=== PATIENT | female | born 1945 | race Caucasian/White ===

== ENCOUNTER 2025-02-11 14:48 | Inpatient (IN) | payer MEDICARE, OTHER, SELFPAY ==
[2025-02-11] VITALS (33 sets, daily range): BP systolic 79–117; BP diastolic 56–89; PULSE 2–68; BMI 32.6
[2025-02-11 11:33] LABS: Hematocrit 33.7 % (37.0-47.0); Hemoglobin 11.9 g/dL (12.0-16.0); Mean Corp Hgb Conc. 35.3 g/dL (33.0-37.0); Mean Corpuscular Volume 83.2 fL (81.0-99.0); Nucleated Red Blood Cells % 0 %; Platelet Count 178 10^3/uL (130-400); Red Cell Dist. Width 15.0 % (11.5-14.5)
--- NOTE | 2025-02-11 11:35 | ED.GENMED ---
History of Present Illness
<Urbano Nelson PA-C - Last Filed: 02/11/25 16:18>
General
Chief Complaint: Breathing Problem
Source: patient
Time Seen by Provider: 02/11/25 11:26
History of Present Illness
History of Present Illness:
79-year-old female with past medical history of hyperlipidemia and GERD presenting to the emergency department for evaluation of left shoulder pain and shortness of breath that started today, for the last week or so patient has been dealing with
what she thought was right-sided lower back pain/sciatica, called her primary care provider after she was getting no relief with anti-inflammatories, was started on prednisone but states this was also not helping. Patient states that last night is
when she started feeling the left-sided chest discomfort/shoulder pain and shortness of breath, contacted EMS to bring her here today due to the worsening symptoms this morning. Patient notes she is not experiencing any pleurisy, hemoptysis, cough,
exertional dyspnea or orthopnea, abdominal pain, nausea or vomiting. Patient did reportedly have a fever for EMS on their arrival but patient is afebrile here and she was not aware of any fevers at home during the week. Patient also notes at time
of my exam she some left lower extremity discomfort and swelling. No recent travel or sick contacts. No recent antibiotics. Social history and family history otherwise noncontributory
Past History
<Urbano Nelson PA-C - Last Filed: 02/11/25 16:18>
Past History
ED Past Medical History: GERD and Hypercholesterolemia
ED Past Surgical History: Tonsilectomy
Social History
Tobacco: Non-smoker
Alcohol: None
Drug: None
Living: with family
Review of Systems
<Urbano Nelson PA-C - Last Filed: 02/11/25 16:18>
Review of Systems
All Other Systems: ROS reviewed and negative except as documented in HPI and ROS
Phy Exam
<Urbano Nelson PA-C - Last Filed: 02/11/25 16:18>
Physical Exam
Physical Exam:
GENERAL: Alert , in no apparent distress
HEAD: Normocephalic atraumatic
EYE: Clear conjunctiva
NECK: Supple, no significant adenopathy.
ENT: o/p clr, mmm.
CARDIAC: Tachycardic rate, irregular rhythm, frequent PACs/ectopy on telemetry, harsh systolic murmur most pronounced at the right second intercostal space and left sternal border
LUNGS: Clear breath sounds bilaterally, no acute respiratory distress, no wheezes/rales/rhonchi, pulse ox 90 to 92% on 6 L but speaking in full sentences in no acute respiratory distress
ABDOMEN: Soft, without focal tenderness, no r/g, no cvat
NEUROLOGICAL: Alert and oriented
SKIN: Warm and dry, skin intact.
MUSCULOSKELETAL: Minimal left lower extremity edema compared to the right with some mild tenderness over the proximal gastrocnemius of the left lower extremity, well perfused. Easily palpable pedal and tibial pulse bilaterally
PSYCH: Normal and appropriate interaction.
Scores
<Urbano Nelson PA-C - Last Filed: 02/11/25 16:18>
Heart Failure Risk
Heart Failure Risk Score: Not Applicable
Heart Score for Chest Pain Patients
STEMI patient?: Not applicable
Withdrawal Assessment of Alcohol
Withdrawal Assessment Completed?: Not applicable
Sepsis
<Urbano Nelson PA-C - Last Filed: 02/11/25 16:18>
Sepsis Screening
Sepsis Assessment: Severe Sepsis
Sepsis Screening: Bilirubin >2mg/dl
Sepsis Screen
Sepsis Screen: Severe Sepsis
Date: 02/11/25
Time: 16:15
<Macario Rodgers DO - Last Filed: 02/11/25 13:08>
Sepsis Screen
Sepsis Screen: Severe Sepsis
Date: 02/11/25
Time: 13:05
Course
<Urbano Nelson PA-C - Last Filed: 02/11/25 16:18>
Orders/Labs/Results
Orders:
Orders
02/11/25 11:19
Electrocardiogram (*1) Urgent
Reason for Study: Tachycardia
Urinalysis Reflex To Culture Urgent
Date Specimen was Collected: 02/11/25
Time Specimen was Collected: 11:20
02/11/25 11:20
EKG- Treatment ONCE
02/11/25 11:26
Complete Blood Count/With Diff Urgent
Comprehensive Metabolic Panel Urgent
Lactic Acid Urgent
NT-proBNP Urgent
Comment: ADD ON
Troponin I Urgent
02/11/25 11:27
Blood Culture Urgent
IVÁN Source: Blood/Venous
Specimen Description:
02/11/25 11:31
CT Chest PE Study Urgent
Comment:
Reason For Exam: tachy, hypoxic, chest pain/back pain
Venous Doppler Lwr Ext Left [US Periph Venous LOWER Ext LT] Urgent
Comment:
Reason For Exam: pain, swelling
02/11/25 11:55
Add On- LAB Urgent
Tests Added?: ProBNP
02/11/25 12:13
Azithromycin [Zithromax] 500 mg PO NOW STA
CefTRIAXone [Rocephin] 2,000 mg IV NOW STA
02/11/25 12:16
0.9% Sodium Chloride 1000 ml [Nss] 1,800 ml IV NOW STA
02/11/25 12:17
0.9% Sodium Chloride 1000 ml [Nss] 1,800 ml IV NOW STA
02/11/25 12:20
Sterile Water [Sterile Water For Injection] 20 ml .ROUTE .STK-MED
02/11/25 12:23
Furosemide [Lasix] 40 mg IV NOW STA
02/11/25 12:55
COVID-19 Antigen Urgent
Source: Nasal Swab
02/11/25 13:06
Bipap [RESP] Urgent
Patient to use own unit?: No
Inspiratory Pressure (cm H2O): 14
Expiratory Pressure (cm H2O): 6
02/11/25 13:25
ABG [Arterial Blood Gas] Urgent
%Oxygen/Room Air: 6L NC
02/11/25 13:31
Troponin I Urgent
02/11/25 13:37
Blood Culture Urgent
IVÁN Source: Blood/Venous
Specimen Description:
02/11/25 14:00
Echo 2D MMode Color/Doppler Urgent
Reason for Study: Hypotension, sepsis, heart murmur
02/11/25 14:22
Admit/Transfer Patient As Directed
Co-Sign Provider:
Level of Care: Inpatient admission
Assign to:: ICU
Physician / Group: Franky
Diagnosis: Hypoxia, Pneumona, Heart Failure
Reason for Hospitalization: BIPAP
Expected length of stay greater than two midnights?: Yes
ELOS- Estimated Length of Stay in days: 3
I certify the patient meets the requirements for IP care: Yes
PRN Pain Medication Management As Directed
May give lesser potent ordered pain med per pt: Yes
preference::
Protocol:: Medication orders for pain may be administered in a
manner that supports deferring to patient preference
when the pt is:
- Requesting an ordered lesser potent pain medication.
Least to most potent pain medications are defined
as: acetaminophen < NSAID < tramadol < opioids
(morphine, oxycodone, hydromorphone).
- Requesting a lesser dose of the same medication IF
ORDERED.
- Requesting a less intrusive route of administration
if both routes are prescribed by the provider (PO <
IV).
02/11/25 14:23
Code Status As Directed
Resuscitation Status: Do not resuscitate
Reached after discussion with pt or family/Healthcare POA: Yes
DNR Bracelet Application ONCE
Abnormal Lab Results
02/11/25 02/11/25 02/11/25
11:26 13:25 13:31
WBC 17.6 H 10^3/uL
(4.8-10.8)
RBC 4.05 L 10^6/uL
(4.20-5.40)
Hgb 11.9 L g/dL
(12.0-16.0)
Hct 33.7 L %
(37.0-47.0)
RDW 15.0 H %
(11.5-14.5)
MPV 11.3 H fL
(7.4-10.4)
Abs Immat Gran (auto) 0.5 H 10^3/uL
(0-0.05)
Absolute Neuts (auto) 15.2 H 10^3/uL
(1.4-6.5)
Absolute Lymphs (auto) 0.8 L 10^3/uL
(1.2-3.4)
Absolute Monos (auto) 1.0 H 10^3/uL
(0.1-0.6)
Immature Gran % 2.9 H %
(0-0.5)
Neutrophils % 86.4 H %
(42.2-75.2)
Lymphocytes % 4.5 L %
(20.5-51.1)
pCO2 29 L mmHg
(32-35)
pO2 60 L mmHg
(83-108)
HCO3 19.2 L mmol/L
(21-28)
ABG O2 Sat (Measured) 92.9 L %
(94-98)
Sodium 129 L mmol/L
(135-145)
Carbon Dioxide 17 L mmol/L
(22-30)
BUN 44 H mg/dl
(7-17)
Creatinine 1.2 H mg/dL
(0.6-1.0)
Glucose 172 H mg/dl
(70-99)
Calcium 7.6 L mg/dl
(8.4-10.2)
Total Bilirubin 3.1 H mg/dl
(0.2-1.3)
AST 53 H U/L
(14-36)
ALT 43 H U/L
(0-35)
Alkaline Phosphatase 189 H U/L
(38-126)
Troponin I 0.733 H* ng/ml 0.608 H* ng/ml
Total Protein 5.6 L g/dl
(6.3-8.2)
Albumin 3.0 L g/dl
(3.5-5.0)
02/11/25 11:26
02/11/25 11:26
Vital Signs
Initial and Last Documented VS:
Initial Vital Signs
Pulse Resp Pulse Ox
134 24 90
02/11/25 11:23 02/11/25 11:23 02/11/25 11:23
Last Documented Vital Signs
Temp Pulse Resp BP Pulse Ox
98.3 F 143 23 109/64 95
02/11/25 11:27 02/11/25 16:00 02/11/25 15:30 02/11/25 16:00 02/11/25 16:00
Sarahilt;Macario Rodgers, DO - Last Filed: 02/11/25 13:08>
Orders/Labs/Results
Orders:
Orders
02/11/25 11:19
Electrocardiogram (*1) Urgent
Reason for Study: Tachycardia
Urinalysis Reflex To Culture Urgent
Date Specimen was Collected: 02/11/25
Time Specimen was Collected: 11:20
02/11/25 11:20
EKG- Treatment ONCE
02/11/25 11:26
Complete Blood Count/With Diff Urgent
Comprehensive Metabolic Panel Urgent
Lactic Acid Urgent
NT-proBNP Urgent
Comment: ADD ON
Troponin I Urgent
02/11/25 11:27
Blood Culture Urgent
IVÁN Source: Blood/Venous
Specimen Description:
02/11/25 11:31
CT Chest PE Study Urgent
Comment:
Reason For Exam: tachy, hypoxic, chest pain/back pain
Venous Doppler Lwr Ext Left [US Periph Venous LOWER Ext LT] Urgent
Comment:
Reason For Exam: pain, swelling
02/11/25 11:55
Add On- LAB Urgent
Tests Added?: ProBNP
02/11/25 12:13
Azithromycin [Zithromax] 500 mg PO NOW STA
CefTRIAXone [Rocephin] 2,000 mg IV NOW STA
02/11/25 12:16
0.9% Sodium Chloride 1000 ml [Nss] 1,800 ml IV NOW STA
02/11/25 12:17
0.9% Sodium Chloride 1000 ml [Nss] 1,800 ml IV NOW STA
02/11/25 12:20
Sterile Water [Sterile Water For Injection] 20 ml .ROUTE .STK-MED
02/11/25 12:23
Furosemide [Lasix] 40 mg IV NOW STA
02/11/25 12:55
COVID-19 Antigen Urgent
Source: Nasal Swab
02/11/25 13:06
Bipap [RESP] Urgent
Patient to use own unit?: No
Inspiratory Pressure (cm H2O): 14
Expiratory Pressure (cm H2O): 6
02/11/25 13:25
ABG [Arterial Blood Gas] Urgent
%Oxygen/Room Air: 6L NC
02/11/25 13:31
Troponin I Urgent
02/11/25 13:37
Blood Culture Urgent
IVÁN Source: Blood/Venous
Specimen Description:
02/11/25 14:00
Echo 2D MMode Color/Doppler Urgent
Reason for Study: Hypotension, sepsis, heart murmur
02/11/25 14:22
Admit/Transfer Patient As Directed
Co-Sign Provider:
Level of Care: Inpatient admission
Assign to:: ICU
Physician / Group: Franky
Diagnosis: Hypoxia, Pneumona, Heart Failure
Reason for Hospitalization: BIPAP
Expected length of stay greater than two midnights?: Yes
ELOS- Estimated Length of Stay in days: 3
I certify the patient meets the requirements for IP care: Yes
PRN Pain Medication Management As Directed
May give lesser potent ordered pain med per pt: Yes
preference::
Protocol:: Medication orders for pain may be administered in a
manner that supports deferring to patient preference
when the pt is:
- Requesting an ordered lesser potent pain medication.
Least to most potent pain medications are defined
as: acetaminophen < NSAID < tramadol < opioids
(morphine, oxycodone, hydromorphone).
- Requesting a lesser dose of the same medication IF
ORDERED.
- Requesting a less intrusive route of administration
if both routes are prescribed by the provider (PO <
IV).
02/11/25 14:23
Code Status As Directed
Resuscitation Status: Do not resuscitate
Reached after discussion with pt or family/Healthcare POA: Yes
DNR Bracelet Application ONCE
Abnormal Lab Results
02/11/25 02/11/25 02/11/25
11:26 13:25 13:31
WBC 17.6 H 10^3/uL
(4.8-10.8)
RBC 4.05 L 10^6/uL
(4.20-5.40)
Hgb 11.9 L g/dL
(12.0-16.0)
Hct 33.7 L %
(37.0-47.0)
RDW 15.0 H %
(11.5-14.5)
MPV 11.3 H fL
(7.4-10.4)
Abs Immat Gran (auto) 0.5 H 10^3/uL
(0-0.05)
Absolute Neuts (auto) 15.2 H 10^3/uL
(1.4-6.5)
Absolute Lymphs (auto) 0.8 L 10^3/uL
(1.2-3.4)
Absolute Monos (auto) 1.0 H 10^3/uL
(0.1-0.6)
Immature Gran % 2.9 H %
(0-0.5)
Neutrophils % 86.4 H %
(42.2-75.2)
Lymphocytes % 4.5 L %
(20.5-51.1)
pCO2 29 L mmHg
(32-35)
pO2 60 L mmHg
(83-108)
HCO3 19.2 L mmol/L
(21-28)
ABG O2 Sat (Measured) 92.9 L %
(94-98)
Sodium 129 L mmol/L
(135-145)
Carbon Dioxide 17 L mmol/L
(22-30)
BUN 44 H mg/dl
(7-17)
Creatinine 1.2 H mg/dL
(0.6-1.0)
Glucose 172 H mg/dl
(70-99)
Calcium 7.6 L mg/dl
(8.4-10.2)
Total Bilirubin 3.1 H mg/dl
(0.2-1.3)
AST 53 H U/L
(14-36)
ALT 43 H U/L
(0-35)
Alkaline Phosphatase 189 H U/L
(38-126)
Troponin I 0.733 H* ng/ml 0.608 H* ng/ml
Total Protein 5.6 L g/dl
(6.3-8.2)
Albumin 3.0 L g/dl
(3.5-5.0)
02/11/25 11:26
02/11/25 11:26
Vital Signs
Initial and Last Documented VS:
Initial Vital Signs
Pulse Resp Pulse Ox
134 24 90
02/11/25 11:23 02/11/25 11:23 02/11/25 11:23
Last Documented Vital Signs
Temp Pulse Resp BP Pulse Ox
98.3 F 143 23 109/64 95
02/11/25 11:27 02/11/25 16:00 02/11/25 15:30 02/11/25 16:00 02/11/25 16:00
<Urbano Nelson PA-C - Last Filed: 02/11/25 16:18>
MDM/Problems Addressed
Differential Diagnosis Includes:
PE
Pneumonia
Aortic stenosis or other valvular dysfunction
Bronchitis
Osteomyelitis/discitis
Endocarditis pericarditis/myocarditis
ACS
COVID/viral syndrome
MDM/Problems Addressed:
79-year-old female presenting the ER for evaluation of increasing shortness of breath, left shoulder pain and back pain, symptoms ongoing for about a week and progressing. On arrival here patient is afebrile however noted to be significantly
tachycardic and hypoxic. Currently on 6 L via nasal cannula. Harsh murmur noted on exam. Patient states that she follows with cardiology at [place] and has a history of a murmur. Given her presenting symptoms stat CTA of the chest ordered.
Patient to be kept on supplemental oxygen. Anticipate admission
<Urbano Nelson PA-C - Last Filed: 02/11/25 16:18>
*Radiology
Radiology exam reviewed: preliminary read by ED provider (Multilobar pneumonia) and radiology read reviewed
*Pulse Oximetry
SaO2: 93
Nasal Cannula flow liters per minute: 5
Patient hypoxic: yes
*EKG
Heart Rate: 109
Rate: tachycardiac
Rhythm: sinus
[place]: normal axis
Ischemia: no ischemia
*[place] Interpretation
Rate: tachycardiac
Heart Rate: 125
Rhythm: sinus and PAC's
*Critical Care Note
comment:
Critical care statement: A total of 32 minutes of critical care time was provided for this patient. This includes management of unstable vital signs, evaluation of the patient at bedside, reviewing the patient's pertinent medical records, discussion
with consultants, review of old EKGs and review of pertinent medical records. This time with separate from time utilized to perform the aforementioned documented procedures
<Macario Rodgers DO - Last Filed: 02/11/25 13:08>
*Critical Care Note
Total Time (30-74mins, 75-104mins- exclusive of procedures): 32
<Urbano Nelson PA-C - Last Filed: 02/11/25 16:18>
Patient Management
Discussion with other providers: Hospitalist and Decision Science Analyst
Escalation/DeEscalation of care consider admission/obs:
Upon returning from CAT scan patient was now noted to be hypotensive, tachycardic and had an increased work of breathing. Her initial troponin was noted to be significantly elevated as well as an elevated BNP. Due to her hypotension decision was
made to still proceed with IV fluid resuscitation with anticipation of needing to diurese afterwards. Will also start patient on BiPAP for comfort in order to help her current respiratory distress. I also notified cardiology to come and consult on
the patient due to concern for worsening valvular dysfunction, patient with probable septic shock with organ dysfunction. Hospitalist team notified, will start the patient now in ICU due to concern for worsening respiratory compromise.
ED Attending Note
<Urbano Nelson PA-C - Last Filed: 02/11/25 16:18>
-
Portions of this chart may have been created with voice recognition software.� Occasional wrong word or��sound alike� substitutions may have occurred due to the inherent limitations of voice recognition software.
<Macario Rodgers DO - Last Filed: 02/11/25 13:08>
ED Attending Note
Patient seen and examined by attending physician: Yes
I performed the substantive portion of visit, reviewed & personally made and approve the management plan that is documented in note by myself or SOFIA.: Yes
ED Attending Note:
Seen with KAREY examined independently 79-year-old female shortness of breath for a few days bilateral pneumonia
Marginal blood pressure elevated cardiac markers suspect this is infectious primarily, will start antibiotics following resuscitation check ABG, consideration for noninvasive or invasive ventilation follow closely
Discharge Plan
Departure
Patient Disposition: Admit
Date of Disposition: 02/11/25
Time of Disposition: 12:55
Presentation/result/management discussed w/ accepting MD/DO: Hospitalist
Discharge Problem:
Pneumonia, Elevated troponin, CHF (congestive heart failure), MELITA (acute kidney injury)
Interventions
Interventions:
*Risk Screen - Suicide Last Done: 02/11/25 11:32
*General Assessment Last Done: 02/11/25 11:32
*Neglect/Abuse Screening Last Done: 02/11/25 11:32
*ED- Fall Risk Assessment Last Done: 02/11/25 11:32
*ED COVID-19 Vaccine History Last Done: 02/11/25 11:32
ED- Cardiac Assessment Last Done: 02/11/25 11:32
ED- Pulmonary Assessment Last Done: 02/11/25 11:32
[2025-02-11 11:56] LABS: ALT (SGPT) 43 U/L (0-35); AST (SGOT) 53 U/L (14-36); Albumin 3.0 g/dl (3.5-5.0); Alkaline Phosphatase 189 U/L (38-126); Blood Urea Nitrogen 44 mg/dl (7-17); Calcium 7.6 mg/dl (8.4-10.2); Carbon Dioxide 17 mmol/L (22-30); Chloride 101 mmol/L (98-107); Estimated Creatinine Clearance 43 ml/min; Glucose 172 mg/dl (70-99); Potassium 3.6 mmol/L (3.5-5.1); Sodium 129 mmol/L (135-145); Total Protein 5.6 g/dl (6.3-8.2); eGFR 45.48
[2025-02-11 12:13] LABS: Troponin I 0.733 ng/ml
[2025-02-11] MEDS: ROCEPHIN 2000 MG IV (12:56)
[2025-02-11] MEDS: NSS 1800 ML IV (12:56)
[2025-02-11] MEDS: ZITHROMAX 500 MG PO (12:56)
[2025-02-11 13:31] LABS: COVID-19 Antigen Negative (Negative)
--- NOTE | 2025-02-11 13:33 | HPS.HSE ---
Addendum entered and electronically signed by Tamiko Wilkins DO 02/11/25 15:37:
The patient is seen and examined. I have discussed the patient at length with Rama, and agree with her history and physical and assessment and plan of care as per below. The patient is typically very active and independent with her ADLs. Over
the past week she has been experiencing sciatica for which she moved to a higher level of care where she lives, and was started on Ultram. Her brother notes that she has been very lethargic this week, this sitting on the couch, not very active, and
has been taking Ultram for sciatica type back pain. Her [id number] also notes that her breathing was becoming heavier on Wednesday. She also had a fever. She comes in today to the emergency department secondary to shortness of breath and hypoxia.
On CAT scan she is found to have multilobar pneumonia. After receiving ultrasound in the emergency department to rule out DVT which was negative, the patient came back and was hypotensive. She was given sepsis dose of IV fluids and her blood
pressure has improved. Her concern today is for sepsis and acute hypoxic respiratory failure secondary to multilobar pneumonia. She also has a significant murmur and cardiology was consulted. Her troponins were elevated. She had a bedside
echocardiogram and that is pending official report at this time.
Vital signs remarkable for blood pressure 110/75, pulse of 120, respiratory rate of 21, temperature 98.3, Oxygen saturation 96% on BiPAP
Lungs positive for rhonchi bilaterally
Cardiovascular positive for systolic ejection murmur
Abdomen is soft nontender normoactive bowel sounds without appreciable tenderness, no peritoneal signs
PCO2 on ABG is 60
Assessment and plan of care
Bilateral Multilobar Pneumonia
Hypoxic respiratory failure
Septic Shock and Multisystem Organ Failure with MELITA and transaminitis
-ICU admit, high risk for respiratory failure
-bedside echo performed in ED and pending report
-cont IV abx, LUE, LAMONTE, cultures
-cont non-invasive ventilation with BIPAP and O2
-Pulm Competitive Intelligence Analyst and Cards consultation appreciated
-IVF, continue to monitor I/O, weights, electrolytes and creatinine
-US abd , serial monitoring of electrolytes and LFTs
Pt confirmed she is DNR, agreeable to medical management and non-invasive ventilation with BIPAP
Greater than 60 minutes of critical care time is spent on the care of the patient.
Original Note:
Family Physician
-
Family Physician: Iris Humphreys
Chief Complaint
-
Shortness of Breath
History of Present Illness
Patient is an 79 y/o female past medical history of hypertension, hyperlipidemia, and GERD who presents with shortness of breath and left shoulder pain. Patient reports for the last week she has been dealing with increased back pain/sciatica. She
was taking anti-inflammatories without improvement and was subsequently started on a Medrol dose Simon by her PCP. Last night she developed left sided chest/shoulder pain and increased shortness of breath. Patient reports feeling very sweaty this
morning. EMS indicated fever upon their arrival to patient's home but patient was afebrile upon arrival to the emergency department. While in the emergency department patient was placed on BiPAP due to hypoxia and respiratory distress. Upon my
evaluation patient continues on BiPAP with improvement in her respiratory status. She continue complain of chest pressure across her anterior chest.
Medical History
Past Medical History
Past Medical History: Reports Other
Additional Past Medical History:
Atrial Tachycardia
Hyperlipidemia
GERD
Past Surgical History: Reports Other
Additional Past Surgical History:
Tonsillectomy
Social History
Tobacco: Former Smoker (Quit over 40 years ago)
Family History
Family History: Not pertinent
Allergies / Home Medications
Allergies reflects when Allergies were last updated in [employer].
Home Medications with original date entered in [employer]
Allergy/Medication List:
Allergies
Allergy/AdvReac Type Severity Reaction Status Date / Time
No Known Allergies Allergy Unverified 02/11/25 11:32
Home Medications
acetaminophen 500 mg tablet 1,000 mg PO TID@0800,1300,1700 02/11/25
atorvastatin 10 mg tablet 10 mg PO QHS 02/11/25
esomeprazole magnesium 40 mg capsule,delayed release 40 mg PO DAILY@0900 02/11/25
methylprednisolone 4 mg tablets in a dose pack See Rx Instructions .Route .COMPLEX 02/11/25
metoprolol tartrate 25 mg tablet 25 mg PO BID@0800,1700 02/11/25
polyethylene glycol 3350 17 gram oral powder packet 17 g PO DAILY 02/11/25
sennosides 8.6 mg tablet (senna) 17.2 mg PO DAILY 02/11/25
tramadol 50 mg tablet 75 mg PO Q6HPRN PRN moderate pain 02/11/25
Review of Systems
-
A 12 point ROS was completed and negative except as noted: Yes
Respiratory: Reports Trouble Breathing; Denies Cough
Cardiac: Reports Chest Pain, Diaphoresis and Palpitations
Abdomen/GI: Denies Abdominal Pain, Nausea or Vomiting
Musculoskeletal: Denies Edema
Physical Exam
Vital Signs
Vital Signs
Temp Pulse Resp BP Pulse Ox
98.3 F 100 20 79/68 89
02/11/25 11:27 02/11/25 13:15 02/11/25 13:15 02/11/25 13:01 02/11/25 13:15
Physical Exam
General: Well Developed, Well Nourished, Obese and Other (Comfortable and Conversant on BiPAP)
HEENT: Anicteric and Moist mucous membranes
Respiratory: Clear; No Rales
Cardiac: S1/S2, Regular Rhythm, Tachycardia (Slightly) and Murmur (Systolic Murmur hear best at left upper sternal border)
GI: Soft and Non Tender
Rectal: Deferred by Provider
Musculoskeletal: No Clubbing, No Cyanosis and No Edema
Skin: Warm and Dry
Neuro: Awake, Alert and Nonfocal/grossly intact
Psych: Calm
Laboratory Results
-
02/11/25 11:26
02/11/25 11:
Laboratory Results
Lactic Acid 1.7 mmol/L (0.7-2.0) 02/11/25 11:
Total Bilirubin 3.1 mg/dl (0.2-1.3) H 02/11/25 11:26
AST 53 U/L (14-36) H 02/11/25 11:
ALT 43 U/L (0-35) H 02/11/25 11:
Alkaline Phosphatase 189 U/L (38-126) H 02/11/25 11:
Troponin I 0.733 ng/ml H* 02/11/25 11:[address]:
Bilateral pneumonia, right greater than left.
Tiny bilateral pleural effusions
No pulmonary embolus.
Peripheral Vascular Ultrasound:
No evidence of DVT of the left lower extremity.
Data Reviewed
-
CT Scan: Report Reviewed by me
Ultrasound: Report Reviewed by me
Lab Data: Labs Reviewed by me
Impression/Plan
-
Bilateral Pneumonia with likely Septic Shock with Multisystem Organ Failure
-Admit to ICU
-Consult Cardiology and Intensivists
-Continue ceftriaxone and azithromycin
-Continue BiPAP
-Trend renal function, liver function tests and troponin
-Low threshold to start pressors for blood pressure support
-Reviewed patient that she is comfort with currently level care but would not want to intubated and does not want CPR
Atrial Tachycardia
-Resume metoprolol with blood pressure stabilizes
Hyperlipidemia
-Continue atorvastatin
GERD
-Continue Protonix
DVT proph: SC Heparin
Code Status: DNR
[2025-02-11 13:38] LABS: B.E. -4.0 mmol/L; HCO3 19.2 mmol/L (21-28); O2 Saturation % 92.9 % (94-98); PCO2 29 mmHg (32-35); PO2 60 mmHg (83-108)
[2025-02-11 13:48] LABS: O2 Therapy 6L NC
--- NOTE | 2025-02-11 14:02 | CON.CAR ---
Consultation
Consultation Request
Date/Time Consultation Requested: 02/11/2025 at 1400
Date/Time Consultation Performed: 02/11/2025 at 1430
Requesting Provider: Urbano Coyle
Performing Provider: Dr. Richardson Peralta
Reason for Consultation: Hypotension, tachycardia, murmur
Medical History
-
Chief Complaint: Change in mental status, hypotension, murmur, sepsis
History of Present Illness:
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 [place] L[place]os at [place]. She is independent, drives, very active, major problem of late has been low back pain and she
recently moved from her apartment to assisted living because of back issues.Details of her history are largely unknown, but today she developed left shoulder discomfort and dyspnea per her report of the emergency department. Over the last week had
been on prednisone and anti-inflammatories for right-sided low back pain and sciatica. Brother is at the bedside states that she had a change in mental status yesterday did not seem to be herself, was fatigued and currently she does not denies
complaints of marked shortness of breath, chest pain etc. She was reportedly febrile, with some change in mental status. On presentation, she is tachycardic, hypotensive, with a mental state that is not at baseline and so is admitted. Per
patient, she has been told she has a heart murmur but that it was not a significant problem.
Past Medical History
Past Medical History: GERD, Hypercholesterolemia and Other (Degenerative disc disease)
Social History
Tobacco: Former Smoker
Alcohol: None
Drug: None
Personal: Single
Living: Assisted Living (Was independent and active, still driving, etc. until the last couple weeks, now in assisted living at [facility])
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
Family History
Family History: Unable to Obtain
Allergies / Home Medications
Allergy/AdvReac Type Severity Reaction Status Date / Time
No Known Allergies Allergy Unverified 02/11/25 11:32
�Medication �Instructions �Recorded �Confirmed �Type
acetaminophen 500 mg tablet 1,000 mg PO TID@0800,1300,1700 02/11/25 02/11/25 History
atorvastatin 10 mg tablet 10 mg PO QHS 02/11/25 02/11/25 History
esomeprazole magnesium 40 mg 40 mg PO DAILY@0900 02/11/25 02/11/25 History
capsule,delayed release
methylprednisolone 4 mg tablets in See Rx Instructions .Route .COMPLEX 02/11/25 02/11/25 History
a dose pack
metoprolol tartrate 25 mg tablet 25 mg PO BID@0800,1700 02/11/25 02/11/25 History
polyethylene glycol 3350 17 gram 17 g PO DAILY 02/11/25 02/11/25 History
oral powder packet
sennosides 8.6 mg tablet (senna) 17.2 mg PO DAILY 02/11/25 02/11/25 History
tramadol 50 mg tablet 75 mg PO Q6HPRN PRN moderate pain 02/11/25 02/11/25 History
Review of Systems
-
Unable to obtain full review of systems at this time due to: Other (Currently probably with toxic metabolic encephalopathy)
History Source: Patient and Family
Physical Exam
Vital Signs
Temp Pulse Resp BP Pulse Ox
36.8 C 100 20 79/68 89
02/11/25 11:27 02/11/25 13:15 02/11/25 13:15 02/11/25 13:01 02/11/25 13:15
Lab Results
02/11/25 11:26
02/11/25 11:26
Troponin I 0.733 ng/ml H* 02/11/25 11:26
Uek-V-Thjxaddrosv Pept Cancelled 02/11/25 11:32
Physical Exam
General: Respiratory Distress, Fever and Other (Jaundiced)
HEENT: Normocephalic
Respiratory: Clear
Cardiac: Murmur (Loud systolic murmur left sternal border to apex- dynamic LVOT murmur? Possible aortic stenosis or mitral regurgitation) and Other (Pulses intact)
GI: Soft and Non Tender
Musculoskeletal: No Edema
Skin: Warm and Dry
Neuro: Nonfocal/Grossly Intact and Other (Awake, slow to respond to questions)
Psych: Other (Probable mild toxic metabolic encephalopathy)
Impression / Plan
-
Impression:
Bilateral pneumonia with presumed septic shock and multisystem organ failure
Non-[place] related myocardial injury related to sepsis, initial troponin 0.733
proBNP 19,000
Hepatitis with hyperbilirubinemia
Probable MELITA
Toxic metabolic encephalopathy
Respiratory failure on BiPAP
Atrial tachycardia
Murmur, concern for dynamic left ventricular outflow tract obstruction, consider mitral regurgitation, aortic stenosis less likely
Plan:
She presents with what is most likely septic shock from bilateral pneumonia, with evidence of hepatic, renal, cardiac and neurologic injury. Impending respiratory failure currently on BiPAP.
Check echo
Treatment of pneumonia per primary team
Supportive care
Trend troponin
Although proBNP is markedly elevated, would not attempt diuresis at this time
Data Reviewed
-
EKG: Tracing Personally Visualized and interpreted (Sinus rhythm/sinus tachycardia with short runs of atrial tachycardia)
CT Scan: Image Personally Visualized and interpreted ( CT with pulmonary embolism protocol-no pulmonary embolism dissection pneumo, right upper lobe right lower lobe pneumonia left upper lobe and left lower lobe pneumonia)
Ultrasound: Report Reviewed by me (No lower extremity DVT)
Labs: Labs Reviewed by me (White count 17.6, hemoglobin 11.9, platelets 178, left shift, 7.43, 60/29, base excess -4, sodium 129, potassium 3.6, CO2 77, BUN/creatinine 44 and 1.2, glucose 172, proBNP is 19,000, troponin is 0.733, AST is 53, ALT is
43, alkaline phosphatase is 189, lactic acid is 1.7, bilirubin is 3.1)
[2025-02-11 14:41] LABS: Troponin I 0.608 ng/ml
--- NOTE | 2025-02-11 15:57 | CON.INTV ---
Consultation
Consultation Request
Date/Time Consultation Requested: 02/11
Date/Time Consultation Performed: 02/11
Reason for Consultation: Critical care
Medical History
-
History of Present Illness:
History primarily obtained from the chart and the patient. 79-year-old female with history of hypertension, hyperlipidemia, who has been dealing with back pain, sciatica. She was being treated with anti-inflammatory therapy and steroids per
primary. She then developed increased shortness of breath, left-sided chest pain, diaphoresis. EMS was contacted. Upon arrival to [facility], afebrile, pulse 100, breathing at 20, blood pressure 79/68, 89%. CT chest was obtained,
negative for pulmonary embolism. There were bilateral infiltrates concerning for pulmonary edema. Doppler study was negative for DVT. Patient was given IV ceftriaxone, azithromycin. Patient developed increased respiratory distress, worsening
hypoxia requiring BiPAP. Patient being admitted to ICU for further management 02/11
At this time, patient appears to be comfortable on BiPAP, not using accessory muscles. She does feel somewhat improved overall. She denies nausea, abdominal pain
Upon arrival to ICU, patient taken off BiPAP. She feels improved. She describes few days of not feeling well. She also did not take her medications, including beta-dov.
She is not very forthcoming with regards to history but is able to answer questions appropriately
.
PMH: Hyperlipidemia, GERD, history of atrial tachycardia, history of tonsillectomy.
Past Medical History
Past Medical History: None (See above)
Past Surgical History: None (See above)
Social History
Tobacco: Former Smoker (Quit )
Alcohol: None
Drug: None
Personal: Single
Living: Assisted Living (Living at assisted living for the past couple weeks)
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
Family History
Family History: Reviewed & Not Pertinent and Other
Allergies / Home Medications
Allergies
Allergy/AdvReac Type Severity Reaction Status Date / Time
No Known Allergies Allergy Unverified 02/11/25 11:32
Home Medications
�Medication �Instructions �Recorded �Confirmed �Last Taken �Type
acetaminophen 500 mg tablet 1,000 mg PO TID@0800,1300,1700 02/11/25 02/11/25 Unknown History
atorvastatin 10 mg tablet 10 mg PO QHS 02/11/25 02/11/25 Unknown History
esomeprazole magnesium 40 mg 40 mg PO DAILY@0900 02/11/25 02/11/25 Unknown History
capsule,delayed release
methylprednisolone 4 mg tablets in See Rx Instructions .Route .COMPLEX 02/11/25 02/11/25 02/11/25 History
a dose pack 12 mg
metoprolol tartrate 25 mg tablet 25 mg PO BID@0800,1700 02/11/25 02/11/25 Unknown History
polyethylene glycol 3350 17 gram 17 g PO DAILY 02/11/25 02/11/25 Unknown History
oral powder packet
sennosides 8.6 mg tablet (senna) 17.2 mg PO DAILY 02/11/25 02/11/25 Unknown History
tramadol 50 mg tablet 75 mg PO Q6HPRN PRN moderate pain 02/11/25 02/11/25 Unknown History
Review of Systems
-
Unable to Obtain full review of systems at this time due to: Acuity
All other systems: Negative unless noted
Vitals / Labs / Diagnostic Testing
Vital Signs
Temp Pulse Resp BP Pulse Ox
98.3 F 102 21 110/75 96
02/11/25 11:27 02/11/25 14:15 02/11/25 14:15 02/11/25 14:00 02/11/25 14:15
Lab Data
02/11/25 11:26
02/11/25 11:26
Laboratory Results
02/11/25
13:25
pH 7.43
pCO2 29 L
pO2 60 L
HCO3 19.2 L
O2 Delivery Level 6l nc
Diagnostic Testing:
Physical Exam
-
HEENT: Normocephalic (BiPAP in place)
Cardiovascular: S1/S2, Regular Rhythm (Tachycardic), Murmur (2/6 systolic murmur), Peripheral Edema (Trace edema) and Calf Tenderness (n)
Respiratory: Wheeze (n), Rales (few), Rhonchi (few) and Non-Labored Respirations (BiPAP in place)
GI: Soft, Non Distended (Obese) and Non Tender
Neurology: Awake, Alert and No Motor Deficits (Moving extremities)
Skin: Other (No rash)
General: Comfortable (Appears comfortable on BiPAP while in the ED)
Assessment
-
79-year-old female with history of hyperlipidemia, murmur followed by cardiology at [place], presents with increased chest pain/shoulder pain, back pain, shortness of breath and mental status changes. Found to be in hypoxic respiratory failure
upon arrival to ED, placed on BiPAP. CT chest ruled out PE, confirmed bilateral patchy infiltrates. Patient given IV antibiotics for presumed pneumonia. We are asked to help from critical care standpoint
Acute hypoxic respiratory failure
Requiring BiPAP in ED
Bilateral infiltrates
Pneumonitis versus heart failure
Elevated proBNP
Leukocytosis
Hyponatremia
Mild transaminitis
Chest pain, shortness of breath x 48 hours
Acute renal insufficiency
Elevated troponin, non-[place] related myocardial injury
Tachycardia
Murmur on exam
Conditions present prior to admission
Hypercholesterolemia
History of atrial tachycardia
Prior known murmur
Distant tobacco history, quit 1980s
Plan/recommendations
At this time, patient is critically ill but stabilized
She was evaluated in the ED when on BiPAP
She was evaluated upon arrival to ICU at which time BiPAP was discontinued
Cardiology correspondence reviewed. Heart failure is not suspected
No indication for Lasix per cardiology
Lactate 1.7
Creatinine 1.2
Moving forward
Echocardiogram is pending
Continue with broad-spectrum antibiotics for pneumonia, remains on ceftriaxone, azithromycin
Follow EKG in the a.m.
Replete lites as indicated
IV fluids continue 60 cc/h, normal saline
Patient also given calcium channel dov, started Cardizem drip
Of note, patient has not been taking her beta-dov, unclear timeframe. Patient not forthcoming as to why she was not taking her medication
Updated brother at bedside
Brother states patient is relatively independent, active
Reviewed with critical care nursing, respiratory care
TCCT 35 min
[2025-02-11 18:20] LABS: INR 1.16; PT 15.1 Sec (11.4-14.6)
[2025-02-11 18:21] LABS: APTT 33.3 Sec (23.4-35.0)
[2025-02-11] MEDS: CARDIZEM 10 MG IV (19:10)
[2025-02-11] MEDS: CARDIZEM 125 IV (19:12)
[2025-02-11] MEDS: HEPARIN 5000 UNITS SC (19:15)
[2025-02-11] MEDS: NSS 1000 IV (19:16)
[2025-02-11] MEDS: MORPHINE SULFATE 1 MG IV (19:28)
--- NOTE | 2025-02-11 19:44 | PTCARENOTE ---
Addendum entered by Ovidio Peralta RN 02/11/25 22:16:
Decreasing systolic goals --> Phenyl-ephrine started.
Addendum entered by Ovidio Peralta RN 02/11/25 21:22:
ICU SOFIA bedside to evaluate chest pain unrelieved by morphine dose, tachypnea. STAT ABG/H&H/BMP ordered. RT notified decision to place patient back on PAP therapy.
Recent Troponin downtrended.
Now maxed on Cardezim rate still in 120-130s.
Addendum entered by Ovidio Peralta RN 02/11/25 20:41:
Cardiology implementation analyst updated via TT. Orders for EKG and troponin --> EKG sent to Cards via TT.
Original Note:
Assumed care of pt. approx 1900.
Tachypnea, increased work of breathing noted, w. sternal chest pain. ICU SOFIA notified orders for morphine.
Diltiazem bolus given, and gtt started.
Bp remains above systolic parameters. Salvatore not initiated.
[2025-02-11 21:18] LABS: Troponin I 0.553 ng/ml
[2025-02-11 21:24] LABS: B.E. -4.3 mmol/L; HCO3 17.8 mmol/L (21-28); O2 Saturation % 95.2 % (94-98); PCO2 25 mmHg (32-35); PO2 68 mmHg (83-108)
[2025-02-11 21:28] LABS: Hematocrit 31.3 % (37.0-47.0); Hemoglobin 11.2 g/dL (12.0-16.0)
[2025-02-11 21:40] LABS: Blood Urea Nitrogen 49 mg/dl (7-17); Calcium 7.8 mg/dl (8.4-10.2); Carbon Dioxide 18 mmol/L (22-30); Chloride 101 mmol/L (98-107); Estimated Creatinine Clearance 43 ml/min; Glucose 160 mg/dl (70-99); Potassium 3.9 mmol/L (3.5-5.1); Sodium 129 mmol/L (135-145); eGFR 45.48
[2025-02-11] MEDS: NEO-SYNEPHRINE 250 IV (22:03)
[2025-02-11] MEDS: LIPITOR 10 MG PO (22:14)
[2025-02-11] MEDS: SODIUM BICARBONATE 50 MEQ IV (22:14)
--- NOTE | 2025-02-11 23:42 | PTCARENOTE ---
Phenyl-ephrine titrated off.
Remains on BiPap --> tolerating well.
Cardizem remains max dose unable to titrate down as HR remains elevated in 100s.
[2025-02-12] VITALS (59 sets, daily range): BP systolic 78–126; BP diastolic 56–105; PULSE 2–92; BMI 32.7
[2025-02-12] MEDS: HEPARIN 5000 UNITS SC ×4 (00:24→22:59)
--- NOTE | 2025-02-12 02:37 | PTCARENOTE ---
Uptitrating Salvatore decreasing SBP goals.
Cardizem downtitrated --> rate more controlled 90-100.
Remains on BiPap, decreased urine OP ICU SOFIA aware.
No further change in assessment.
[2025-02-12 03:33] LABS: Hematocrit 29.0 % (37.0-47.0); Hemoglobin 10.3 g/dL (12.0-16.0); Mean Corp Hgb Conc. 35.5 g/dL (33.0-37.0); Mean Corpuscular Volume 82.2 fL (81.0-99.0); Platelet Count 207 10^3/uL (130-400); Red Cell Dist. Width 14.9 % (11.5-14.5)
[2025-02-12 04:00] LABS: ALT (SGPT) 34 U/L (0-35); AST (SGOT) 33 U/L (14-36); Albumin 2.7 g/dl (3.5-5.0); Alkaline Phosphatase 151 U/L (38-126); Blood Urea Nitrogen 53 mg/dl (7-17); Calcium 7.7 mg/dl (8.4-10.2); Carbon Dioxide 22 mmol/L (22-30); Chloride 103 mmol/L (98-107); Estimated Creatinine Clearance 47 ml/min; Glucose 148 mg/dl (70-99); HDL Cholesterol 17 mg/dl; LDL Cholesterol, Calculated 25 mg/dl; Magnesium 2.0 mg/dl (1.6-2.3); Potassium 3.9 mmol/L (3.5-5.1); Sodium 132 mmol/L (135-145); Total Protein 5.1 g/dl (6.3-8.2); Very Low Density Lipoprotein 46 mg/dl (0-30); eGFR 50.48
[2025-02-12 04:12] LABS: Troponin I 0.667 ng/ml
[2025-02-12] MEDS: CARDIZEM 125 IV (06:10)
[2025-02-12] MEDS: PROTONIX 40 MG PO (07:34)
[2025-02-12] MEDS: TYLENOL 650 MG PO (08:10)
--- NOTE | 2025-02-12 08:22 | W.PN.CARDCBS ---
Today's Communication / Plan
-
Try metoprolol in place of IV diltiazem
Wean Salvatore-Synephrine as possible
To date no atrial fibrillation seen, systemic anticoagulation not currently indicated.
Impression / Plan
-
Impression:
Bilateral pneumonia with clinical sepsis
Non-[place] related myocardial injury related to sepsis, initial troponin 0.733
proBNP 19,000
Hepatitis with hyperbilirubinemia
Probable MELITA
Toxic metabolic encephalopathy
Respiratory failure on BiPAP
Atrial tachycardia
Severe mitral regurgitation
Moderate aortic regurgitation
Pericarditis
Atrial tachycardia, no atrial fibrillation seen today
Echo 02/11/2025: Mild LVH, hyperdynamic function, EF 70-75% or greater, dynamic LVOT gradient suggested but not demonstrated inclusively, MAC, severe MR, dilated left atrium, aortic sclerosis with moderate aortic regurgitation, dilated and
hypokinetic RV, pulmonary artery systolic pressure 52 mmHg with moderate MR and dilated right atrium
Plan:
She presents with what is most likely septic shock from bilateral pneumonia, with evidence of hepatic, renal, cardiac and neurologic injury. Impending respiratory failure currently on BiPAP.
She is better today. Atrial tachycardia is controlled on IV diltiazem. Will transition to metoprolol which is what she was on as an outpatient. She is currently on phenylephrine, hopefully this can be weaned with metoprolol on board.
EKG and symptoms are highly suggestive of pericarditis, will add colchicine at low-dose.
Consider follow-up echo during his hospital stay, imaging was limited at the time of her initial study due to to the acuity of her illness.
Continue to trend troponin, consider ischemic evaluation, could be performed as outpatient.
In general, multisystem organ failure seems to be improving, treatment of pneumonia etc. per primary team and critical care.
Would not anticoagulate based on current available data-no A-fib seen
Volume status currently looks reasonable but proBNP was very elevated. Will continue to observe, no diuretic at present.
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
Subjective
Date of Service: February 12, 2025:
79-year-old woman with known heart murmur, degenerative disc disease, GERD, hypercholesterolemia admitted with hypotension, hypoxemia fever and change in mental status, runs of atrial tachycardia developed shortly after hospital stay consistent with
MAT. CT scan negative for pulmonary embolus, troponin elevated with presumed MELITA, hepatitis, jaundice.
Current meds: diltiazem IV 5 mg an hour, Salvatore-Synephrine at 80 atorvastatin 10 mg a day, pantoprazole 40 mg daily, ceftriaxone, subcu heparin, azithromycin
Pulse 94, 105/67, respirate 16, afebrile, saturations 94%, weight is 94.6 kg, roughly unchanged, conversant, complains of pain lying supine, worse with inspiration tachycardic, MR murmur, coarse breath sounds, few crackles in bases, neck veins not
markedly elevated, not much edema
Chest x-ray today rotated, cardiomegaly, possible left basilar infiltrate
ECG sinus rhythm, diffuse ST segment elevation with element of CO segment depression inferiorly and CO elevation in aVR
White count 25.6, hemoglobin 10.3, platelets 207, left shift, ABG 7.46, pCO2 25, PO268, bicarb 18
Sodium 132, potassium 3.9, CO2 22, BUN/creatinine are 53 and 1.1, Glucose 148, lactic acid 1.7, proBNP 19,000 yesterday, troponin this morning 0.667, COVID-negative
Atrial tachycardia better controlled, heart rate in 90s
Objective
Labs:
02/12/25 03:21
02/12/25 03:21
Labs
Hgb 10.3 g/dL (12.0-16.0) L 02/12/25 03:21
Hct 29.0 % (37.0-47.0) L 02/12/25 03:21
Plt Count 207 10^3/uL (130-400) 02/12/25 03:21
PT 15.1 Sec (11.4-14.6) H 02/11/25 18:03
INR 1.16 02/11/25 18:03
APTT 33.3 Sec (23.4-35.0) 02/11/25 18:03
Sodium 132 mmol/L (135-145) L 02/12/25 03:21
Potassium 3.9 mmol/L (3.5-5.1) 02/12/25 03:21
BUN 53 mg/dl (7-17) H 02/12/25 03:21
Creatinine 1.1 mg/dL (0.6-1.0) H 02/12/25 03:21
Glucose 148 mg/dl (70-99) H 02/12/25 03:21
Troponins
02/11/25 02/11/25 02/11/25
11:26 13:31 20:38
Troponin I 0.733 H* 0.608 H* 0.553 H*
02/12/25
03:21
Troponin I 0.667 H*
Vital Signs and I&O:
Vital Signs
Temp Pulse Resp BP Pulse Ox
36.6 C 94 16 105/67 94
02/12/25 03:28 02/12/25 06:15 02/12/25 06:15 02/12/25 06:00 02/12/25 06:15
Vital Signs
Temp Pulse Resp BP Pulse Ox
36.6 C 94 16 105/67 94
02/12/25 03:28 02/12/25 06:15 02/12/25 06:15 02/12/25 06:00 02/12/25 06:15
Intake & Output
02/10/25 02/11/25 02/12/25 02/13/25
07:59 07:59 07:59 07:59
Intake Total 1039 / 1039
Output Total 230 / 230
Balance 809 / 809
Physical Exam
Physical Exam
See above
[2025-02-12 08:53] LABS: Glycohemoglobin (HgbA1c) 6.3 % (4.0-5.6)
--- NOTE | 2025-02-12 09:14 | PTCARENOTE ---
Received pt awake and alert.Speech clear and appropriate.+ THOMAS.Assists with repositioning.c/o headache,received Tylenol for pain.SR-ST noted.Phenylephrine,Cardizem and IVF infusing via right midline.Decreased breath sounds with crackles bibasilar.Pt
requested to remove BiPAP.Place on O2 6l NC.POX 89-90%.Encouraged to cough and deep breath.RT changed pt to 10l mid flow O2.POX 93%+ WOLF and orthopnea noted.Eating breakfast now.No BM.Requested and received Purewick for incontinence and urgency.Skin
intact.Plan of care discussed.
--- NOTE | 2025-02-12 09:27 | W.PN.HOSP.TC ---
Today's Communication/Plan
-
IV antibiotics
Follow cultures.
Attempt to wean off oxygen
Attempt to wean off vasopressor and IV fluids.
Total Critical Care Time_55____ minutes. I was immediately available to the patient and staff. I personally examined, reviewed labs, diagnostic images/reports, interpretations, treatment plans, discussed patient care with other providers and
family or caregivers (if patient is unable to make decisions), entered orders as appropriate and documented the medical record.
Assessment / Plan
Assessment / Plan
Impression
Acute hypoxic respiratory failure
Bilateral pneumonia.
Sepsis
Septic shock requiring vasopressors.
Gram-positive bacteremia
Acute kidney injury
Hypovolemic hyponatremia
Metabolic acidosis
Hyperbilirubinemia
Toxic metabolic encephalopathy secondary to acute illness
Non-[place] myocardial injury in the settings of hypotension and atrial tachycardia
Atrial tachycardia
Elevated pro CHF BNP
Severe MR on echo 02/11
Pulmonary hypertension PAP 52 mmHg
Other conditions:
Essential hypertension
Dyslipidemia.
Known cardiac murmur.
Chronic back pain.
Distant tobacco history quit in
Plan:
Acute hypoxic respiratory failure
Bilateral right greater than left pneumonia
Sepsis suspect pulmonary source
Septic shock requiring vasopressors
Preliminary blood culture with gram-positive cocci in chains 08/03
Respiratory status improved. Currently weaned off BiPAP to nasal cannula oxygen at 10 L
Continue broad-spectrum antibiotics covering community-acquired pathogens: Ceftriaxone/Zithromax
Follow-up final blood cultures
Consider repeat blood cultures.
Consider ID consultation
Attempt to wean off vasopressor
Remains on low rate normal saline
Toxic metabolic encephalopathy.
Neurologic exam with no focal findings
Mental status improves with improved oxygenation and hemodynamics.
Cardiovascular:
Noted elevated cardiac markers including non-[place] troponin elevation elevated pro CHF BNP at 1900.
Echocardiogram 02/11 with hyperdynamic LVEF at 70-75% with no regional wall motion abnormalities. Noted for moderate MR with a large left atrium, dilated and hypokinetic RV with pulmonary hypertension PA pressure 52 mmHg and moderate TR.
CT scan negative for pulmonary embolism.
Lower extremity Doppler negative for DVT
Questionable relevance of severe MR and possibly streptococcal bacteremia
Atrial tachycardia.
Requiring IV Cardizem.
Rate better controlled with improved oxygenation.
Consider transition to oral possibly metoprolol versus Cardizem once hypotension improved.
Acute kidney injury.
Hypovolemic hyponatremia.
Metabolic acidosis.
Improved with IV fluids and vasopressors.
Nonoliguric.
Hyperbilirubinemia with normal transaminases
Follow trend
Consider imaging if uptrending
Essential hypertension
Dyslipidemia.
Chronic lower back pain.
On tramadol and steroid taper as outpatient
If gram-positive bacteremia remains relevant with persistent back pain, consider imaging
Anticipated Discharge: > 48 hours
Subjective/Interval History
-
Date of Service: February 12, 2025
Objective Data
-
Labs:
Laboratory Results
02/11/25 02/12/25
21:14 03:21
WBC 25.6 H
Hgb 11.2 L 10.3 L
Hct 31.3 L 29.0 L
Plt Count 207
Sodium 129 L 132 L
Potassium 3.9 3.9
Chloride 101 103
Carbon Dioxide 18 L 22
BUN 49 H 53 H
Creatinine 1.2 H 1.1 H
Glucose 160 H 148 H
Calcium 7.8 L 7.7 L
Total Bilirubin 1.5 H D
AST 33
ALT 34
Alkaline Phosphatase 151 H
Vital Signs:
Vital Signs
Temp Pulse Resp BP Pulse Ox
97.5 F 92 16 98/65 93
02/12/25 09:23 02/12/25 09:00 02/12/25 09:00 02/12/25 09:00 02/12/25 09:00
I&O
02/11/25 02/12/25 02/13/25
06:59 06:59 06:59
Intake Total 1039 / 1134 273 / 273
Output Total 230 / 230
Balance 809 / 904 273 / 273
Physical Exam
-
General: Well Developed and No Apparent Distress
HEENT: Normocephalic, Atraumatic and Moist Mucous Membranes
Respiratory: Clear to Auscultation
Cardiac: Regular Rhythm and S1/S2; Negative Murmur, Rub or Gallop
GI: Soft, Nontender, Nondistended and Normal Bowel Sounds; Negative Organomegaly
Rectal: Deferred by Provider
Musculoskeletal: No Clubbing, No Cyanosis and No Edema
Skin: Negative Rash
Neuro: Nonfocal/Grossly Intact
[2025-02-12] MEDS: NEO-SYNEPHRINE 250 IV ×2 (10:49→21:33)
[2025-02-12] MEDS: NSS IV (10:49)
--- NOTE | 2025-02-12 10:53 | CM ---
Initial assessment completed with patient with brother in room. Patient lives alone at [facility] in a 1st floor apartment with no steps to enter. [employer] patient was independent in ADL's and ambulation, drove. No DME or in-home services. Does have a
HC-POA. PCP is Dr. Iris Humphreys and Pharmacy is [facility]. Discharge POC: Anticipate home with no needs. Will follow medical progression.
[2025-02-12] MEDS: ROCEPHIN 1000 MG IV ×2 (11:39→12:33)
[2025-02-12] MEDS: COLCHICINE 0.3 MG PO ×2 (11:39→20:51)
[2025-02-12] MEDS: STERILE WATER FOR INJECTION 10 ML IV ×2 (11:40→12:34)
[2025-02-12] MEDS: LOPRESSOR 25 MG PO (11:40)
[2025-02-12] MEDS: SOLU-MEDROL PF 40 MG IV (12:32)
[2025-02-12] MEDS: ZITHROMAX INFUSION 250 IV (12:33)
[2025-02-12] MEDS: NOVOLOG FLEXPEN-LOW RESISTANCE SC ×2 (12:46→16:47)
[2025-02-12 12:47] LABS: Glucose - Point of Care 124 mg/dl (70-99)
--- NOTE | 2025-02-12 12:52 | PTCARENOTE ---
Pt assessed.no change in assessment noted.Pt assisted oob to chair with 1 person minimal assist.Gait was steady.
--- NOTE | 2025-02-12 13:42 | PTCARENOTE ---
BM x 2.Pt became tachypneic,SOB with pursed lip breathing.Upper airway wheezing noted.Dr Og made aware.Brian ordered.
[2025-02-12] MEDS: DUONEB 3 ML INH ×2 (13:46→20:21)
--- NOTE | 2025-02-12 14:46 | W.PN.INTV ---
Today's Communication / Plan
Recommendations
- Start IV Solu-Medrol 40 mg daily
- Scheduled DuoNeb 4 times daily and as needed albuterol
- Incentive spirometry, flutter valve
- Continue nightly BiPAP and as needed, alternating with mid flow during daytime
- Follow-up chest x-ray and ABG in a.m.
Assessment
-
79-year-old female with history of hyperlipidemia, murmur followed by cardiology at [facility], presents with increased chest pain/shoulder pain, back pain, shortness of breath and mental status changes. Found to be in hypoxic respiratory failure
upon arrival to ED, placed on BiPAP. CT chest ruled out PE, confirmed bilateral patchy infiltrates. Patient given IV antibiotics for presumed pneumonia. We are asked to help from critical care standpoint
Conditions present prior to admission
Hypercholesterolemia
History of atrial tachycardia
Prior known murmur
Distant tobacco history, quit
02/12 overview: Patient currently on mid flow at 10 L, saturating 93-94%, she required BiPAP last night.
Assessment and plan:
#1. Acute hypoxic respiratory failure with bilateral pneumonia (R>L) with septic shock
- Streptococcus bacteremia noted on blood cultures
- Patient currently on mid flow at 10 L supplemental oxygen, required BiPAP overnight due to respiratory distress
- Blood gas was 7/13, 7.46, 25, 68, consistent with wide A-a gap.
- Continue IV ceftriaxone and azithromycin, follow-up on final cultures
- In view of severity of pneumonia and respiratory failure, add IV Solu-Medrol 40 mg daily for 5 days
- Episodic wheezing noted, start DuoNebs 4 times daily scheduled and additional albuterol on an as-needed basis
- BiPAP nightly and as needed
- Lactate reassuring at 1.7
- Required pressors briefly
#2. Pulmonary Hypertension
- Echo suggestive of elevated pulmonary artery systolic pressure of 52 with dilated and hypokinetic RV with moderate TR
- Continue supplemental O2 to keep saturations above 90%
- Unclear etiology of pulmonary hypertension
- Will need pulmonary function testing, sleep study and possibly VQ scan, can pursue these as outpatient
- RV dilation likely driving proBNP level up, will benefit from right heart catheterization eventually
#3. Atrial tachycardia with APCs
- Partly driven by underlying sepsis with bacteremia
- Metoprolol as tolerated, monitor electrolytes closely
#4. Elevated troponin
- [place] to be related to pneumonia with septic shock and respiratory failure
- Cardiology service on case
DVT prophylaxis subcu heparin, GI prophylaxis p.o. pantoprazole.
Critical Care time 60 mins -- The patient is admitted for acute critical illness for the treatment of vital organ failure and/or prevention of further life-threatening conditions. Total care includes time spent in review of history, physical exam,
medications, hemodynamic/ventilator parameters, laboratory data, imaging and discussion with house staff, pharmacy, respiratory therapy, architecture faculty member, and nursing.
Data
CT Chest 01/2025: Bilateral pneumonia, right greater than left.
Tiny bilateral pleural effusions
No pulmonary embolus. No aortic dissection.
Large hiatal hernia.
ECHO 01/2025: 1. Mild concentric left ventricular hypertrophy with hyperdynamic LV systolic
function, EF 70-75% or greater. Dynamic left ventricular outflow tract
gradient not excluded
2. Thickened mitral leaflets, mitral annular calcification, severe mitral
regurgitation and dilated left atrium
3. Aortic sclerosis with moderate aortic regurgitation
4. Dilated and hypokinetic RV, pulmonary artery systolic pressure 52 mmHg,
moderate TR and dilated right atrium
5. The ascending aorta is borderline dilated
Subjective Dataa
Subjective Data
Date of Service:
Date of Service: February 12, 2025
Subjective:
Patient comfortably sitting in bed, in no acute distress
Review of Systems
Genitourinary: Other (Overall feels better, all 14 systems reviewed and negative except as stated above in the history of present illness.)
Objective Data
Data Reviewed
Vital Signs / I&O / Oxygen:
Vital Signs
Temp Pulse Resp BP Pulse Ox
97.5 F 93 24 107/69 94
02/12/25 11:07 02/12/25 13:44 02/12/25 13:44 02/12/25 12:30 02/12/25 13:44
Intake and Output
02/11/25 02/12/25 02/13/25
06:59 06:59 06:59
Intake Total 1039 / 1134 878 / 878
Output Total 230 / 230
Balance 809 / 904 878 / 878
SaO2 94
Nasal Cannula flow liters per 10
minute
Physical Exam
General: Comfortable
HEENT: Normocephalic
Cardiovascular: S1-S2
Respiratory: Rhonchi (lower lobes posteriorly )
GI: Soft and Non Distended
Neurology: Awake and Alert
Skin: Warm
Labs/Micro/Reports
Lab Data
02/12/25 03:21
02/12/25 03:21
Laboratory Results
02/11/25 02/11/25 02/11/25
18:03 20:48 21:14
PT 15.1 H
INR 1.16
APTT 33.3
pH Cancelled 7.46 H
pCO2 Cancelled 25 L
pO2 Cancelled 68 L
HCO3 Cancelled 17.8 L
O2 Delivery Level Cancelled
Microbiology
02/11/25 11:27 Blood/Venous Blood Culture - Preliminary
Streptococcus agalactiae
02/11/25 11:27 Blood/Venous Gram Stain - Final
--- NOTE | 2025-02-12 14:58 | PTCARENOTE ---
1439-POX 85%.BiPAP applied. POX 94%
[2025-02-12] MEDS: DUONEB INH (15:26)
--- NOTE | 2025-02-12 16:37 | PTCARENOTE ---
Pt assessed.No change in assessment noted.Incontinent of bowel and bladder.
--- NOTE | 2025-02-12 16:37 | CM ---
IV/Solu-Medrol, IV/AB, IV/Vasopressors, wean o2 as tolerated. Discharge POC: Await therapy evaluation and recommendation. Was at [facility] for STR prior to admission.
--- NOTE | 2025-02-12 16:43 | CM ---
IV/Solu-Medrol, IV/AB, IV/Vasopressors, wean o2 as tolerated. Discharge POC: Await therapy evaluation and recommendation.
[2025-02-12 16:58] LABS: Glucose - Point of Care 132 mg/dl (70-99)
[2025-02-12] MEDS: LOPRESSOR PO (18:04)
--- NOTE | 2025-02-12 19:00 | PTCARENOTE ---
prev shift VS verified in flowsheet, can only verify accuracy of VS starting at this time for shift.
[2025-02-12] MEDS: MORPHINE SULFATE 1 MG IV (20:16)
--- NOTE | 2025-02-12 20:20 | PTCARENOTE ---
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 POC discussed w/pt. +inc mod amt urine/BM, timmy care, turned, skin care, repositioned.
CHG cloths. care ongoing.
[2025-02-12] MEDS: LIPITOR 10 MG PO (20:52)
[2025-02-12 21:27] LABS: Glucose - Point of Care 158 mg/dl (70-99)
--- NOTE | 2025-02-12 22:12 | PTCARENOTE ---
pt w/new AFIB, HR fluctuating up to 140s, no complaints from pt, SBP 90s on Salvatore gtt as documented, BDoughertyNP aware- EKG done, BMP/Mg to lab. 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
[2025-02-12 22:34] LABS: Blood Urea Nitrogen 47 mg/dl (7-17); Calcium 7.7 mg/dl (8.4-10.2); Carbon Dioxide 19 mmol/L (22-30); Chloride 106 mmol/L (98-107); Estimated Creatinine Clearance 65 ml/min; Glucose 168 mg/dl (70-99); Magnesium 2.3 mg/dl (1.6-2.3); Potassium 3.9 mmol/L (3.5-5.1); Sodium 135 mmol/L (135-145); eGFR > 60.00
[2025-02-12] MEDS: CORDARONE 518 MG IV (22:59)
[2025-02-12] MEDS: CORDARONE 103 MG IV (22:59)
--- NOTE | 2025-02-12 23:06 | PTCARENOTE ---
amio bolus/gtt started per orders.
[2025-02-13] VITALS (43 sets, daily range): BP systolic 89–121; BP diastolic 57–91; PULSE 2–102; BMI 32.6
[2025-02-13 04:13] LABS: Hematocrit 29.4 % (37.0-47.0); Hemoglobin 10.5 g/dL (12.0-16.0); Mean Corp Hgb Conc. 35.7 g/dL (33.0-37.0); Mean Corpuscular Volume 82.6 fL (81.0-99.0); Nucleated Red Blood Cells % 0.1 %; Platelet Count 266 10^3/uL (130-400); Red Cell Dist. Width 14.7 % (11.5-14.5)
[2025-02-13 04:30] LABS: B.E. -2.6 mmol/L; HCO3 19.4 mmol/L (21-28); O2 Saturation % 94.4 % (94-98); PCO2 26 mmHg (32-35); PO2 66 mmHg (83-108)
--- NOTE | 2025-02-13 04:30 | PTCARENOTE ---
pt removed bipap on own, requesting a break from the mask, RT to bedside for am abg. pt switched to 15L MFNC. with in mins of being off bipap pt was SOB & sat down to mid to high 80s. 100% NRB added and pt reports feeling better, Sat low to mid 90s.
turned, skin care, repositioned. call cooper with pt.
[2025-02-13 04:42] LABS: ALT (SGPT) 41 U/L (0-35); AST (SGOT) 38 U/L (14-36); Albumin 2.7 g/dl (3.5-5.0); Alkaline Phosphatase 175 U/L (38-126); Blood Urea Nitrogen 43 mg/dl (7-17); Calcium 7.8 mg/dl (8.4-10.2); Carbon Dioxide 20 mmol/L (22-30); Chloride 105 mmol/L (98-107); Estimated Creatinine Clearance 74 ml/min; Glucose 175 mg/dl (70-99); Magnesium 2.4 mg/dl (1.6-2.3); Potassium 4.0 mmol/L (3.5-5.1); Sodium 134 mmol/L (135-145); Total Protein 5.2 g/dl (6.3-8.2); eGFR > 60.00
[2025-02-13] MEDS: TYLENOL 650 MG PO ×2 (06:28→20:39)
[2025-02-13] MEDS: NEO-SYNEPHRINE 250 IV (07:30)
--- NOTE | 2025-02-13 07:30 | PTCARENOTE ---
Received patient A&Ox3, on MFNC 15L and NRB 15L, NSR w/ intermittent Afib, on phenylephrine @60mcg/min and Amiodarone @0.5mg/min, NPO currently for pending ABD , Purewick in place.
[2025-02-13] MEDS: DUONEB 3 ML INH ×4 (07:52→20:51)
[2025-02-13 07:58] LABS: Glucose - Point of Care 154 mg/dl (70-99)
[2025-02-13] MEDS: NOVOLOG FLEXPEN-LOW RESISTANCE SC (08:20)
[2025-02-13] MEDS: SOLU-MEDROL PF 40 MG IV (08:44)
[2025-02-13] MEDS: PROTONIX 40 MG PO (08:46)
[2025-02-13] MEDS: COLCHICINE 0.3 MG PO ×2 (08:46→20:39)
[2025-02-13] MEDS: HEPARIN 5000 UNITS SC (08:47)
--- NOTE | 2025-02-13 10:33 | W.PN.HOSP.TC ---
Today's Communication/Plan
-
With increased oxygen requirements currently on high flow.
Exam with wet Rales
Follow-up chest x-ray with increased bilateral infiltrates.
Pending pro CHF BNP.
Remains phenylephrine dependent with his old blood pressure.
Will provide single dose of Lasix 40 mg now.
Adjust vasopressors to keep MAP 55-60.
Follow response.
Continue antibiotics per
Repeat blood cultures
Total Critical Care Time__55___ minutes. I was immediately available to the patient and staff. I personally examined, reviewed labs, diagnostic images/reports, interpretations, treatment plans, discussed patient care with other providers and
family or caregivers (if patient is unable to make decisions), entered orders as appropriate and documented the medical record.
Assessment / Plan
Assessment / Plan
Impression
Acute hypoxic respiratory failure
Bilateral pneumonia.
Sepsis
Septic shock requiring vasopressors.
Gram-positive bacteremia
Acute kidney injury
Hypovolemic hyponatremia
Metabolic acidosis
Hyperbilirubinemia
Toxic metabolic encephalopathy secondary to acute illness
Non-MS myocardial injury in the settings of hypotension and atrial tachycardia
Atrial tachycardia
Elevated pro CHF BNP
Severe MR on echo 02/11
Pulmonary hypertension PAP 52 mmHg
Other conditions:
Essential hypertension
Dyslipidemia.
Known cardiac murmur.
Chronic back pain.
Distant tobacco history quit in s
Plan:
Acute hypoxic respiratory failure
Bilateral right greater than left pneumonia
Sepsis suspect pulmonary source
Septic shock requiring vasopressors
Preliminary blood culture with gram-positive cocci in chains 08/03
Respiratory status improved. Currently weaned off BiPAP to nasal cannula oxygen at 10 L
Continue broad-spectrum antibiotics covering community-acquired pathogens: Ceftriaxone/Zithromax
Blood culture strep agalactiae 08/03
Repeat blood culture
Consider ID consultation
Attempt to wean off vasopressor
Remains on low rate normal saline
Toxic metabolic encephalopathy.
Neurologic exam with no focal findings
Mental status improves with improved oxygenation and hemodynamics.
Cardiovascular:
Noted elevated cardiac markers including non-MS troponin elevation elevated pro CHF BNP at 1900.
Echocardiogram 02/11 with hyperdynamic LVEF at 70-75% with no regional wall motion abnormalities. Noted for moderate MR with a large left atrium, dilated and hypokinetic RV with pulmonary hypertension PA pressure 52 mmHg and moderate TR.
CT scan negative for pulmonary embolism.
Lower extremity Doppler negative for DVT
Questionable relevance of severe MR and possibly streptococcal bacteremia
Atrial tachycardia.
Requiring IV Cardizem.
Rate better controlled with improved oxygenation.
Consider transition to oral possibly metoprolol versus Cardizem once hypotension improved.
Acute kidney injury.
Hypovolemic hyponatremia.
Metabolic acidosis.
Improved with IV fluids and vasopressors.
Nonoliguric.
Hyperbilirubinemia with normal transaminases
Follow trend
Consider imaging if uptrending
Essential hypertension
Dyslipidemia.
Chronic lower back pain.
On tramadol and steroid taper as outpatient
If gram-positive bacteremia remains relevant with persistent back pain, consider imaging
Anticipated Discharge: > 48 hours
Subjective/Interval History
-
Date of Service: February 13, 2025
Objective Data
-
Labs:
Laboratory Results
02/12/25 02/13/25
22:03 03:58
WBC 33.3 H
Hgb 10.5 L
Hct 29.4 L
Plt Count 266 D
HCO3 19.4 L
Sodium 135 134 L
Potassium 3.9 4.0
Chloride 106 105
Carbon Dioxide 19 L 20 L
BUN 47 H 43 H
Creatinine 0.8 0.7
Glucose 168 H 175 H
Calcium 7.7 L 7.8 L
Total Bilirubin 1.5 H
AST 38 H
ALT 41 H
Alkaline Phosphatase 175 H
Vital Signs:
Vital Signs
Temp Pulse Resp BP Pulse Ox
97.9 F 95 28 115/68 95
02/13/25 08:00 02/13/25 08:45 02/13/25 07:53 02/13/25 08:45 02/13/25 08:30
I&O
02/12/25 02/13/25 02/14/25
06:59 06:59 06:59
Intake Total 1039 / 1134 1448.5 / 1483.2 34.7 / 34.7
Output Total 230 / 230 700 / 700
Balance 809 / 904 748.5 / 783.2 34.7 / 34.7
Physical Exam
-
General: Well Developed and No Apparent Distress
HEENT: Normocephalic, Atraumatic and Moist Mucous Membranes
Respiratory: Rales
Cardiac: Regular Rhythm, S1/S2 and Murmur (Systolic); Negative Rub or Gallop
GI: Soft, Nontender, Nondistended and Normal Bowel Sounds; Negative Organomegaly
Rectal: Deferred by Provider
Musculoskeletal: No Clubbing, No Cyanosis and No Edema
Skin: Negative Rash
Neuro: Nonfocal/Grossly Intact
--- NOTE | 2025-02-13 10:47 | W.PN.CARDCBS ---
Today's Communication / Plan
-
Episode of atrial fibrillation overnight
Continue amiodarone to maintain sinus rhythm
Would start anticoagulation if no contraindication
Agree with gentle IV diuresis in an attempt to improve her respiratory status
Impression / Plan
-
Impression:
Bilateral pneumonia with clinical sepsis
Non-[place] related myocardial injury related to sepsis, initial troponin 0.733
Acute HF with preserved LVEF - proBNP 19,000
Atrial fibrillation with rapid ventricular response
Hepatitis with hyperbilirubinemia
Probable MELITA
Toxic metabolic encephalopathy
Respiratory failure on BiPAP
Atrial tachycardia
Severe mitral regurgitation
Moderate aortic regurgitation
Possible pericarditis
Echo 02/11/2025: Mild LVH, hyperdynamic function, EF 70-75% or greater, dynamic LVOT gradient suggested but not demonstrated inclusively, MAC, severe MR, dilated left atrium, aortic sclerosis with moderate aortic regurgitation, dilated and
hypokinetic RV, pulmonary artery systolic pressure 52 mmHg with moderate MR and dilated right atrium
Plan:
Remains critically ill. Presents with what is most likely septic shock from bilateral pneumonia and multiorgan dysfunction.
Overnight developed rapid atrial fibrillation but was back in normal sinus rhythm at the time of my evaluation
IV amiodarone was started overnight, would continue with plan to transition to oral to maintain sinus rhythm
Due to hypotension home dose of metoprolol is on hold - currently on phenylephrine for pressor support
Would start anticoagulation if no contraindication
BNP remains significantly elevated and she is on high flow O2
Agree with gentle IV diuresis
Follow renal function electrolytes closely
Troponin is elevated but overall trend is relatively flat
Echo with hyperdynamic LV function
Eventual ischemic evaluation - likely as an outpatient
Reporting atypical chest pain and EKG with diffuse ST elevations
With concern for pericarditis colchicine was added, would continue for now
Discussed with nursing
CC time 36 minutes
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
Subjective
Date of Service: February 13, 2025
NAOE. Remains on high flow O2 in the MICU. Phenylephrine for pressor support. HR rapid in AFib overnight.
Objective
Labs:
02/13/25 03:58
02/13/25 03:58
Labs
Hgb 10.5 g/dL (12.0-16.0) L 02/13/25 03:58
Hct 29.4 % (37.0-47.0) L 02/13/25 03:58
Plt Count 266 10^3/uL (130-400) D 02/13/25 03:58
PT 15.1 Sec (11.4-14.6) H 02/11/25 18:03
INR 1.16 02/11/25 18:03
APTT 33.3 Sec (23.4-35.0) 02/11/25 18:03
Sodium 134 mmol/L (135-145) L 02/13/25 03:58
Potassium 4.0 mmol/L (3.5-5.1) 02/13/25 03:58
BUN 43 mg/dl (7-17) H 02/13/25 03:58
Creatinine 0.7 mg/dL (0.6-1.0) 02/13/25 03:58
Glucose 175 mg/dl (70-99) H 02/13/25 03:58
Troponins
02/11/25 02/11/25 02/11/25
11:26 13:31 20:38
Troponin I 0.733 H* 0.608 H* 0.553 H*
02/12/25
03:21
Troponin I 0.667 H*
Vital Signs and I&O:
Vital Signs
Temp Pulse Resp BP Pulse Ox
97.9 F 95 28 115/68 95
02/13/25 08:00 02/13/25 08:45 02/13/25 07:53 02/13/25 08:45 02/13/25 08:30
Vital Signs
Temp Pulse Resp BP Pulse Ox
97.9 F 95 28 115/68 95
02/13/25 08:00 02/13/25 08:45 02/13/25 07:53 02/13/25 08:45 02/13/25 08:30
Intake & Output
02/11/25 02/12/25 02/13/25 02/14/25
06:59 06:59 06:59 06:59
Intake Total 1039 / 1134 1448.5 / 1483.2 34.7 / 34.7
Output Total 230 / 230 700 / 700
Balance 809 / 904 748.5 / 783.2 34.7 / 34.7
Physical Exam
Physical Exam
Gen: NAD, AA
HEENT: NC/AT, sclera anicteric
CV: RRR, NL s1/s2
Lungs: Coarse BS on high flow O2
Abd: S/ND
Ext: 1+ LE edema
Skin: Warm, dry
Neuro: Non-focal
[2025-02-13] MEDS: LASIX 40 MG IV (11:11)
--- NOTE | 2025-02-13 11:32 | CM ---
CM reviewed chart, PT/OT on hold due to patient on high flow O2. CM will continue to watch for therapy recommendations for discharge planning needs.
Plan; follow for therapy recommendations when patient able
[2025-02-13] MEDS: LIDOCAINE 4% PATCH 1 PATCH TOPICAL (11:53)
[2025-02-13] MEDS: ROCEPHIN 2000 MG IV (11:53)
[2025-02-13] MEDS: STERILE WATER FOR INJECTION 20 ML IV (11:54)
--- NOTE | 2025-02-13 12:00 | PTCARENOTE ---
Reassessed the patient, on HFNC 55L 100%, Lasix 40mg IVx1 given, Lidocaine patch added for back pain, OOB to chair w/ 2 people assistance. Brother Richardson updated at bedside.
[2025-02-13] MEDS: NOVOLOG FLEXPEN-LOW RESISTANCE 1 UNITS SC ×2 (12:30→16:48)
[2025-02-13] MEDS: ZITHROMAX INFUSION 250 IV (13:00)
[2025-02-13 13:06] LABS: Glucose - Point of Care 166 mg/dl (70-99)
--- NOTE | 2025-02-13 13:19 | W.PN.INTV ---
Today's Communication / Plan
Recommendations
- Start high flow nasal cannula, continue BiPAP nightly and as needed during daytime
- Agree with diuresis
- ABG, chest x-ray in a.m.
- Ongoing goals of care discussions
Assessment
-
79-year-old female with history of hyperlipidemia, murmur followed by cardiology at [facility], presents with increased chest pain/shoulder pain, back pain, shortness of breath and mental status changes. Found to be in hypoxic respiratory failure
upon arrival to ED, placed on BiPAP. CT chest ruled out PE, confirmed bilateral patchy infiltrates. Patient given IV antibiotics for presumed pneumonia. We are asked to help from critical care standpoint
Conditions present prior to admission
Hypercholesterolemia
History of atrial tachycardia
Prior known murmur
Distant tobacco history, quit 1980s
02/13 overview: Patient currently on nonrebreather, saturating 89%, required BiPAP overnight. Transition to high flow nasal cannula later. MAP of 80, Salvatore-Synephrine weaned off. Amiodarone infusion continued.
Assessment and plan:
#1. Acute hypoxic respiratory failure with bilateral pneumonia (R>L) with septic shock
- Streptococcus bacteremia noted on blood cultures
- Patient started on high flow nasal cannula on 02/13 due to worsening oxygen requirement and increased work of breathing. BiPAP nightly
- Blood gas 7.48, 26, 66, consistent with wide A-a gap.
- Continue IV ceftriaxone and azithromycin, follow-up on final cultures
- Continue IV steroids due to severity of pneumonia
- Continue scheduled DuoNebs 4 times a day due to hyperactive airway disease in the setting of pneumonia as well as as needed albuterol
- BiPAP nightly and as needed, high flow nasal cannula during daytime
- Lactate reassuring at 1.7
- Continue to wean Salvatore-Synephrine, on reevaluation by midday patient was off all pressors
- Lasix 40 mg IV initiated in view of concern for volume overload with worsening chest x-ray opacities and increasing oxygen requirement
#2. Pulmonary Hypertension
- Echo suggestive of elevated pulmonary artery systolic pressure of 52 with dilated and hypokinetic RV with moderate TR
- Continue supplemental O2 to keep saturations above 90%
- Unclear etiology of pulmonary hypertension
- Will need pulmonary function testing, sleep study and possibly VQ scan, can pursue these as outpatient
- RV dilation likely driving proBNP level up, will benefit from right heart catheterization eventually
#3. Atrial tachycardia with APCs
- Partly driven by underlying sepsis with bacteremia
- Amiodarone infusion started overnight, continue
- Start anticoagulation with Eliquis 5 mg p.o. twice daily, discontinue subcu heparin
#4. Elevated troponin
- [place] to be related to pneumonia with septic shock and respiratory failure
- Cardiology service on case
DVT prophylaxis started on Eliquis, GI prophylaxis p.o. pantoprazole.
Goals of care discussion: I met with patient earlier in the day and shared my concern regarding rising oxygen requirement and having to be started on high flow nasal cannula. I discussed that if oxygen requirement rises any further, options are
very limited. I briefly discussed about intubation and mechanical ventilation. Patient really confirmed her CODE STATUS choice of DNR/DNI. Patient's brother arrived in few hours and I met with patient and her brother again at bedside. Went over
patient's current clinical course and current tenuous respiratory status. We discussed about DNR/DNI versus pursuing intubation without opting to receive resuscitation if needed. Patient overall felt marginally better and has opted to stay with
the current CODE STATUS of DNR/DNI.
Critical Care time 50 mins -- The patient is admitted for acute critical illness for the treatment of vital organ failure and/or prevention of further life-threatening conditions. Total care includes time spent in review of history, physical exam,
medications, hemodynamic/ventilator parameters, laboratory data, imaging and discussion with house staff, pharmacy, respiratory therapy, commercial green building architect, and nursing.
Data
CT Chest 01/2025: Bilateral pneumonia, right greater than left.
Tiny bilateral pleural effusions
No pulmonary embolus. No aortic dissection.
Large hiatal hernia.
ECHO 01/2025: 1. Mild concentric left ventricular hypertrophy with hyperdynamic LV systolic
function, EF 70-75% or greater. Dynamic left ventricular outflow tract
gradient not excluded
2. Thickened mitral leaflets, mitral annular calcification, severe mitral
regurgitation and dilated left atrium
3. Aortic sclerosis with moderate aortic regurgitation
4. Dilated and hypokinetic RV, pulmonary artery systolic pressure 52 mmHg,
moderate TR and dilated right atrium
5. The ascending aorta is borderline dilated
Subjective Dataa
Subjective Data
Date of Service:
Date of Service: February 13, 2025
Subjective:
Patient appeared more short of breath, but saturating 89% on nonrebreather.
Review of Systems
Genitourinary: Other (All 14 systems reviewed and negative except as stated above in the history of present illness.)
Objective Data
Data Reviewed
Vital Signs / I&O / Oxygen:
Vital Signs
Temp Pulse Resp BP Pulse Ox
97.9 F 89 19 109/66 95
02/13/25 12:00 02/13/25 11:22 02/13/25 11:22 02/13/25 11:11 02/13/25 11:22
Intake and Output
02/12/25 02/13/25 02/14/25
06:59 06:59 06:59
Intake Total 1039 / 1134 1448.5 / 1483.2 34.7 / 34.7
Output Total 230 / 230 700 / 700
Balance 809 / 904 748.5 / 783.2 34.7 / 34.7
SaO2 95
Nasal Cannula flow liters per 55
minute
Physical Exam
General: Comfortable
HEENT: Normocephalic
Cardiovascular: S1-S2
Respiratory: Rhonchi (lower lobes posteriorly )
GI: Soft and Non Distended
Neurology: Awake and Alert
Skin: Warm
Labs/Micro/Reports
Lab Data
02/13/25 03:58
02/13/25 03:58
Laboratory Results
02/13/25
03:58
pH 7.48 H
pCO2 26 L
pO2 66 L
HCO3 19.4 L
O2 Delivery Level
Microbiology
02/11/25 11:27 Blood/Venous Blood Culture - Preliminary
Streptococcus agalactiae
02/11/25 11:27 Blood/Venous Gram Stain - Final
02/11/25 18:03 Blood/Venous Blood Culture - Preliminary
No Growth in 24 hours- Final report to follow
--- NOTE | 2025-02-13 16:00 | PTCARENOTE ---
Reassessed the patient, OOB to chair for 2hrs, back to bed, all needs addressed. No other changes from previous assessments.
[2025-02-13 16:51] LABS: Glucose - Point of Care 185 mg/dl (70-99)
--- NOTE | 2025-02-13 20:00 | PTCARENOTE ---
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 Sat 98% on HFNC 50L/100%. mouth care done. CHG cloth bath, turned, small smear, skin care, repositioned. timmy care, new purewick applied. POC discussed, call
cooper with pt.
[2025-02-13] MEDS: ELIQUIS 5 MG PO (20:39)
[2025-02-13] MEDS: CORDARONE 518 MG IV (20:39)
[2025-02-13] MEDS: LIPITOR 10 MG PO (20:40)
[2025-02-13 23:01] LABS: Glucose - Point of Care 203 mg/dl (70-99)
--- NOTE | 2025-02-13 23:35 | PTCARENOTE ---
Reassessed, no changes in pt assessment.
[2025-02-14] VITALS (27 sets, daily range): BP systolic 83–125; BP diastolic 59–102; BMI 31.8
--- NOTE | 2025-02-14 04:00 | PTCARENOTE ---
no changes in pt assessment.
[2025-02-14 04:23] LABS: Hematocrit 27.2 % (37.0-47.0); Hemoglobin 9.6 g/dL (12.0-16.0); Mean Corp Hgb Conc. 35.3 g/dL (33.0-37.0); Mean Corpuscular Volume 82.4 fL (81.0-99.0); Platelet Count 260 10^3/uL (130-400); Red Cell Dist. Width 14.6 % (11.5-14.5)
[2025-02-14 04:47] LABS: ALT (SGPT) 40 U/L (0-35); AST (SGOT) 35 U/L (14-36); Albumin 2.6 g/dl (3.5-5.0); Alkaline Phosphatase 144 U/L (38-126); Blood Urea Nitrogen 46 mg/dl (7-17); Calcium 7.7 mg/dl (8.4-10.2); Carbon Dioxide 23 mmol/L (22-30); Chloride 105 mmol/L (98-107); Estimated Creatinine Clearance 64 ml/min; Glucose 160 mg/dl (70-99); Magnesium 2.3 mg/dl (1.6-2.3); Potassium 3.8 mmol/L (3.5-5.1); Sodium 132 mmol/L (135-145); Total Protein 5.1 g/dl (6.3-8.2); eGFR > 60.00
[2025-02-14 04:55] LABS: Absolute Neutrophils -Man Diff 33.5 10^3/uL (1.4-6.5); Anisocytosis 1+; Normal RBC Morphology No; Platelets Checked Yes; Total Cells Counted 100
[2025-02-14] MEDS: DUONEB 3 ML INH ×4 (07:16→20:24)
--- NOTE | 2025-02-14 07:30 | PTCARENOTE ---
Received patient A&Ox3, on HFNC 50L 90%, NSR, BP WNL, Amiodarone @0.5mg/min, helped order breakfast, poor appetite, Purewick in place w/ incontinence.
[2025-02-14] MEDS: NOVOLOG FLEXPEN-LOW RESISTANCE SC ×2 (07:43→11:43)
[2025-02-14 07:44] LABS: Glucose - Point of Care 147 mg/dl (70-99)
[2025-02-14] MEDS: COLCHICINE 0.3 MG PO ×2 (09:00→19:19)
[2025-02-14] MEDS: SOLU-MEDROL PF 40 MG IV (09:00)
[2025-02-14] MEDS: ELIQUIS 5 MG PO ×2 (09:00→19:20)
[2025-02-14] MEDS: LASIX 40 MG IV ×2 (09:00→16:53)
[2025-02-14] MEDS: PROTONIX 40 MG PO (09:00)
[2025-02-14] MEDS: LIDOCAINE 4% PATCH 1 PATCH TOPICAL (09:00)
--- NOTE | 2025-02-14 09:30 | W.PN.CARDCBS ---
Today's Communication / Plan
-
Back in sinus rhythm but remains on high flow oxygen. Will convert IV amiodarone to oral amiodarone 40 mg p.o. 3 times daily.
Continue Eliquis
Continue diuresis with Lasix 40 mg IV daily. Watch hyponatremia. She has known severe mitral regurgitation and may need a second dose of Lasix. PA pressure was 52 on echo
Continue steroids and broad-spectrum antibiotics.
Repeat EKG today to follow diffuse ST elevation and possible pericarditis. She remains on steroids for her underlying lung disease and is now on colchicine.
Impression / Plan
-
Impression:
Bilateral pneumonia with clinical sepsis
Non-LA related myocardial injury related to sepsis, initial troponin 0.733
Acute HF with preserved LVEF - proBNP 19,000
Atrial fibrillation with rapid ventricular response
Hepatitis with hyperbilirubinemia
Probable MELITA
Toxic metabolic encephalopathy
Respiratory failure on BiPAP
Atrial tachycardia
Severe mitral regurgitation
Moderate aortic regurgitation
Possible pericarditis
Echo 02/11/2025: Mild LVH, hyperdynamic function, EF 70-75% or greater, dynamic LVOT gradient suggested but not demonstrated inclusively, MAC, severe MR, dilated left atrium, aortic sclerosis with moderate aortic regurgitation, dilated and
hypokinetic RV, pulmonary artery systolic pressure 52 mmHg with moderate MR and dilated right atrium
Plan:
Remains critically ill. Presents with what is most likely septic shock from bilateral pneumonia and multiorgan dysfunction.
Currently off pressors but remains on high flow oxygen. Will continue Lasix 40 mg IV daily. Hopefully can wean some oxygen today. Continue broad-spectrum antibiotics and steroids.
Had atrial fibrillation overnight but back in sinus rhythm today. Will start oral amiodarone 400 mg p.o. 3 times daily and can stop IV amiodarone. Continue Eliquis.
BNP remains significantly elevated and she is on high flow O2
Continue with diuresis with Lasix 40 mg IV daily. BUN mildly elevated but creatinine normal. now with some mild hyponatremia at 132. Continue to follow. Weight is down 5 pounds
Troponin is elevated but overall trend is relatively flat
Echo with hyperdynamic LV function
Eventual ischemic evaluation - likely as an outpatient
Reporting atypical chest pain and EKG with diffuse ST elevations
With concern for pericarditis colchicine was added, would continue for now. Will repeat EKG today.
Discussed with nursing and family.
CC time 31 minutes
Progress Note - Fitness Director
Subjective
Date of Service: February 14, 2025
Remains on high flow oxygen and still short of breath. Had A-fib overnight but back in sinus rhythm this morning.
Objective
Labs:
02/14/25 03:59
02/14/25 03:59
Labs
Hgb 9.6 g/dL (12.0-16.0) L 02/14/25 03:59
Hct 27.2 % (37.0-47.0) L 02/14/25 03:59
Plt Count 260 10^3/uL (130-400) 02/14/25 03:59
PT 15.1 Sec (11.4-14.6) H 02/11/25 18:03
INR 1.16 02/11/25 18:03
APTT 33.3 Sec (23.4-35.0) 02/11/25 18:03
Sodium 132 mmol/L (135-145) L 02/14/25 03:59
Potassium 3.8 mmol/L (3.5-5.1) 02/14/25 03:59
BUN 46 mg/dl (7-17) H 02/14/25 03:59
Creatinine 0.8 mg/dL (0.6-1.0) 02/14/25 03:59
Glucose 160 mg/dl (70-99) H 02/14/25 03:59
Troponins
02/11/25 02/11/25 02/11/25
11:26 13:31 20:38
Troponin I 0.733 H* 0.608 H* 0.553 H*
02/12/25
03:21
Troponin I 0.667 H*
Vital Signs and I&O:
Vital Signs
Temp Pulse Resp BP Pulse Ox
97.9 F 97 20 115/66 96
02/14/25 07:23 02/14/25 09:00 02/14/25 07:17 02/14/25 09:00 02/14/25 07:20
Vital Signs
Temp Pulse Resp BP Pulse Ox
97.9 F 97 20 115/66 96
02/14/25 07:23 02/14/25 09:00 02/14/25 07:17 02/14/25 09:00 02/14/25 07:20
Intake & Output
02/12/25 02/13/25 02/14/25 02/15/25
06:59 06:59 06:59 06:59
Intake Total 1039 / 1134 1448.5 / 1483.2 1174.8 / 1174.8
Output Total 230 / 230 700 / 700 1020 / 1020
Balance 809 / 904 748.5 / 783.2 154.8 / 154.8
Physical Exam
Physical Exam
GEN: No distress, awake, Ox3
HEENT: supple, anicteric, mmm
LUNGS: bilat rhonchi
CV: Reg, S1/S2, 1/6 syst LSB, no gallop
ABD: soft, BS+, NT/ND
EXT: trace edema
NEURO: Gross non-focal
SKIN: No rash
[2025-02-14] MEDS: ROCEPHIN 2000 MG IV (11:41)
[2025-02-14] MEDS: ZITHROMAX 500 MG PO (11:41)
[2025-02-14] MEDS: STERILE WATER FOR INJECTION 20 ML IV (11:41)
[2025-02-14 11:54] LABS: Glucose - Point of Care 147 mg/dl (70-99)
--- NOTE | 2025-02-14 12:26 | W.PN.INTV ---
Today's Communication / Plan
Recommendations
- Change Lasix to 40 mg IV twice a day
- BiPAP on an as-needed basis
- Continue to wean FiO2, target oxygen saturation more than 90%
- Add melatonin nightly
Assessment
-
79-year-old female with history of hyperlipidemia, murmur followed by cardiology at [facility], presents with increased chest pain/shoulder pain, back pain, shortness of breath and mental status changes. Found to be in hypoxic respiratory failure
upon arrival to ED, placed on BiPAP. CT chest ruled out PE, confirmed bilateral patchy infiltrates. Patient given IV antibiotics for presumed pneumonia. We are asked to help from critical care standpoint
Conditions present prior to admission
Hypercholesterolemia
History of atrial tachycardia
Prior known murmur
Distant tobacco history, quit
02/14 overview: Patient on high flow nasal cannula. 50 L, 85% FiO2. Did not require any BiPAP overnight. Diuresed well last 24 hours. Not needing any pressors anymore. Heart rate hanging around 120s underlying rhythm is atrial fibrillation with
RVR. Saturating 94%. MAP around 91. Amio currently infusing IV.
Assessment and plan:
#1. Acute hypoxic respiratory failure with bilateral pneumonia (R>L) with septic shock
- Streptococcus bacteremia noted on blood cultures
- Currently on high flow nasal cannula, FiO2 requirement decreasing, down to 85% this morning, saturating 94%.
- Continue IV ceftriaxone and switch azithromycin to p.o.
- Continue IV steroids due to severity of pneumonia
- Continue scheduled DuoNebs 4 times a day due to hyperactive airway disease in the setting of pneumonia as well as as needed albuterol
- BiPAP as needed, high flow nasal cannula during daytime
- Lactate reassuring at 1.7
- Patient is off Salvatore-Synephrine now
- Increase Lasix to 40 mg IV twice daily.
#2. Pulmonary Hypertension
- Echo suggestive of elevated pulmonary artery systolic pressure of 52 with dilated and hypokinetic RV with moderate TR
- Continue supplemental O2 to keep saturations above 90%
- Unclear etiology of pulmonary hypertension
- Will need pulmonary function testing, sleep study and possibly VQ scan, can pursue these as outpatient
- RV dilation likely driving proBNP level up, will benefit from right heart catheterization eventually
#3. Atrial tachycardia with APCs
- Partly driven by underlying sepsis with bacteremia
- Amiodarone infusion, being transitioned to p.o. amiodarone
- Continue Eliquis
#4. Elevated troponin
- Brogue to be related to pneumonia with septic shock and respiratory failure
- Cardiology service on case
DVT prophylaxis started on Eliquis, GI prophylaxis p.o. pantoprazole.
'02/13/2025, Goals of care discussion: I met with patient earlier in the day and shared my concern regarding rising oxygen requirement and having to be started on high flow nasal cannula. I discussed that if oxygen requirement rises any further,
options are very limited. I briefly discussed about intubation and mechanical ventilation. Patient really confirmed her CODE STATUS choice of DNR/DNI. Patient's brother arrived in few hours and I met with patient and her brother again at bedside.
Went over patient's current clinical course and current tenuous respiratory status. We discussed about DNR/DNI versus pursuing intubation without opting to receive resuscitation if needed. Patient overall felt marginally better and has opted to
stay with the current CODE STATUS of DNR/DNI.'
Critical Care time 42 mins -- The patient is admitted for acute critical illness for the treatment of vital organ failure and/or prevention of further life-threatening conditions. Total care includes time spent in review of history, physical exam,
medications, hemodynamic/ventilator parameters, laboratory data, imaging and discussion with house staff, pharmacy, respiratory therapy, plisse machine operator, and nursing.
Data
CT Chest 01/2025: Bilateral pneumonia, right greater than left.
Tiny bilateral pleural effusions
No pulmonary embolus. No aortic dissection.
Large hiatal hernia.
ECHO 01/2025: 1. Mild concentric left ventricular hypertrophy with hyperdynamic LV systolic
function, EF 70-75% or greater. Dynamic left ventricular outflow tract
gradient not excluded
2. Thickened mitral leaflets, mitral annular calcification, severe mitral
regurgitation and dilated left atrium
3. Aortic sclerosis with moderate aortic regurgitation
4. Dilated and hypokinetic RV, pulmonary artery systolic pressure 52 mmHg,
moderate TR and dilated right atrium
5. The ascending aorta is borderline dilated
Subjective Dataa
Subjective Data
Date of Service:
Date of Service: February 14, 2025
Subjective:
Patient comfortably sitting in bed, reports feeling marginally better.
Review of Systems
Genitourinary: Other (All 14 systems reviewed and negative except as stated above in the history of present illness.)
Objective Data
Data Reviewed
Vital Signs / I&O / Oxygen:
Vital Signs
Temp Pulse Resp BP Pulse Ox
97.9 F 115 20 115/66 95
02/14/25 07:23 02/14/25 11:21 02/14/25 11:21 02/14/25 09:00 02/14/25 11:25
Intake and Output
02/13/25 02/14/25 02/15/25
06:59 06:59 06:59
Intake Total 1448.5 / 1483.2 1174.8 / 1174.8
Output Total 700 / 700 1020 / 1020
Balance 748.5 / 783.2 154.8 / 154.8
SaO2 95
Nasal Cannula flow liters per 50
minute
Physical Exam
General: Comfortable
HEENT: Normocephalic
Cardiovascular: S1-S2 and Peripheral Edema (Trace)
Respiratory: Rhonchi (lower lobes posteriorly, improving)
GI: Soft and Non Distended
Neurology: Awake and Alert
Skin: Warm
Labs/Micro/Reports
Lab Data
02/14/25 03:59
02/14/25 03:59
Microbiology
02/11/25 11:27 Blood/Venous Blood Culture - Final
Streptococcus agalactiae
02/11/25 11:27 Blood/Venous Gram Stain - Final
02/11/25 18:03 Blood/Venous Blood Culture - Preliminary
No Growth in 48 hours- Final report to follow
--- NOTE | 2025-02-14 12:30 | PTCARENOTE ---
Reassessed the patient, in Afib rhythm, refused lunch at this time, wanted to take a nap, will order dinner later. No other changes from previous assessments.
--- NOTE | 2025-02-14 12:35 | W.PN.HOSP.TC ---
Today's Communication/Plan
-
Respiratory status tenuous while on high flow oxygen
Continue antibiotics ceftriaxone with addition of Zithromax
IV diuresis. Monitoring hyponatremia
Rate controlled with amiodarone
Assessment / Plan
Assessment / Plan
Impression
Acute hypoxic respiratory failure
Bilateral pneumonia.
Sepsis
Septic shock requiring vasopressors.
Gram-positive bacteremia
Acute CHF preserved EF
Acute kidney injury
Hypovolemic hyponatremia
Metabolic acidosis
Hyperbilirubinemia
Toxic metabolic encephalopathy secondary to acute illness
Non-RI myocardial injury in the settings of hypotension and atrial tachycardia
Atrial fibrillation with RVR new onset
Elevated pro CHF BNP
Severe MR on echo 02/11
Pulmonary hypertension PAP 52 mmHg
Hyponatremia secondary to loop diuretics
Other conditions:
Essential hypertension
Dyslipidemia.
Known cardiac murmur.
Chronic back pain.
Distant tobacco history quit in
Plan:
Acute hypoxic respiratory failure
Bilateral right greater than left pneumonia
Sepsis suspect pulmonary source
Septic shock requiring vasopressors
Preliminary blood culture with gram-positive cocci in chains 08/03
Respiratory status improved. Currently weaned off BiPAP to nasal cannula oxygen at 10 L
Continue broad-spectrum antibiotics covering community-acquired pathogens: Ceftriaxone/Zithromax
Blood culture strep agalactiae 08/03
Repeat blood culture
Consider ID consultation
Attempt to wean off vasopressor
Remains on low rate normal saline
Toxic metabolic encephalopathy.
Neurologic exam with no focal findings
Mental status improves with improved oxygenation and hemodynamics.
Acute CHF preserved EF
Noted elevated cardiac markers including non-RI troponin elevation elevated pro CHF BNP at 1900.
Echocardiogram 02/11 with hyperdynamic LVEF at 70-75% with no regional wall motion abnormalities. Noted for moderate MR with a large left atrium, dilated and hypokinetic RV with pulmonary hypertension PA pressure 52 mmHg and moderate TR.
CT scan negative for pulmonary embolism.
Lower extremity Doppler negative for DVT
Questionable relevance of severe MR and possibly streptococcal bacteremia
Continue IV Lasix monitoring for worsening of hyponatremia
Atrial fibrillation with RVR, new onset
Initiated on amiodarone drip with transition to oral.
Admission metoprolol currently on hold
Initiated on Eliquis
Acute kidney injury.
Hypovolemic hyponatremia.
Metabolic acidosis.
Improved with IV fluids and vasopressors.
Nonoliguric.
Hyperbilirubinemia with normal transaminases
Follow trend
Consider imaging if uptrending
Essential hypertension
Dyslipidemia.
Chronic lower back pain.
On tramadol and steroid taper as outpatient
If gram-positive bacteremia remains relevant with persistent back pain, consider imaging
Anticipated Discharge: > 48 hours
Subjective/Interval History
-
Date of Service: February 14, 2025
Objective Data
-
Labs:
Laboratory Results
02/14/25
03:59
WBC 37.3 H
Hgb 9.6 L
Hct 27.2 L
Plt Count 260
Sodium 132 L
Potassium 3.8
Chloride 105
Carbon Dioxide 23
BUN 46 H
Creatinine 0.8
Glucose 160 H
Calcium 7.7 L
Total Bilirubin 1.6 H
AST 35
ALT 40 H
Alkaline Phosphatase 144 H
Vital Signs:
Vital Signs
Temp Pulse Resp BP Pulse Ox
98.2 F 115 20 115/66 95
02/14/25 12:00 02/14/25 11:21 02/14/25 11:21 02/14/25 09:00 02/14/25 11:25
I&O
02/13/25 02/14/25 02/15/25
06:59 06:59 06:59
Intake Total 1448.5 / 1483.2 1174.8 / 1174.8
Output Total 700 / 700 1020 / 1020
Balance 748.5 / 783.2 154.8 / 154.8
Physical Exam
-
General: Well Developed and No Apparent Distress
HEENT: Normocephalic, Atraumatic and Moist Mucous Membranes
Respiratory: Rales
Cardiac: Regular Rhythm, S1/S2 and Murmur (Systolic); Negative Rub or Gallop
GI: Soft, Nontender, Nondistended and Normal Bowel Sounds; Negative Organomegaly
Rectal: Deferred by Provider
Musculoskeletal: No Clubbing, No Cyanosis and No Edema
Skin: Negative Rash
Neuro: Nonfocal/Grossly Intact
--- NOTE | 2025-02-14 15:13 | CM ---
Hi flow O2, wean as tolerated, Bipap, Lasix/IV and IV/AB. Discharge POC: TBD. Awaiting therapy eval. Patient has been unable to participate due to medical status.
[2025-02-14] MEDS: PACERONE 400 MG PO ×2 (16:53→21:06)
[2025-02-14] MEDS: NOVOLOG FLEXPEN-LOW RESISTANCE 1 UNITS SC (16:55)
--- NOTE | 2025-02-14 17:00 | PTCARENOTE ---
Reassessed the patient, Amiodarone gtt off, now on PO amiodarone, OOB to chair, continue weaning FiO2 on HFNC.
[2025-02-14 17:05] LABS: Glucose - Point of Care 176 mg/dl (70-99)
[2025-02-14] MEDS: LOPRESSOR 5 MG IV (18:19)
--- NOTE | 2025-02-14 18:25 | PTCARENOTE ---
Afib Rate increased to 140s-150s after discontinued Amiodarone gtt, BP rechecked and WNL, PRN Metoprolol 5mg IV given.
--- NOTE | 2025-02-14 20:55 | PTCARENOTE ---
Pt received start of shift, HR SR w/ frequent PACs and occasional PVCs. HFNC 50L 70% FiO2. POX 92-95%. Assessment as charted. Repositioned, new purewick placed. Clear urine. Updated pt on plan of care, pt states understanding.
[2025-02-14] MEDS: MELATONIN 5 MG PO (21:07)
[2025-02-14] MEDS: LIPITOR 10 MG PO (21:07)
[2025-02-14 22:53] LABS: Glucose - Point of Care 169 mg/dl (70-99)
[2025-02-15] VITALS (26 sets, daily range): BP systolic 92–126; BP diastolic 53–90; PULSE 94–102; O2SAT 95–96; BMI 31.7
--- NOTE | 2025-02-15 00:43 | PTCARENOTE ---
systems reviewed, no changes from previous assessment, otherwise refer to documentation.
[2025-02-15 03:06] LABS: Hematocrit 28.6 % (37.0-47.0); Hemoglobin 9.8 g/dL (12.0-16.0); Mean Corp Hgb Conc. 34.3 g/dL (33.0-37.0); Mean Corpuscular Volume 84.4 fL (81.0-99.0); Platelet Count 312 10^3/uL (130-400); Red Cell Dist. Width 15.2 % (11.5-14.5)
[2025-02-15 03:26] LABS: Blood Urea Nitrogen 47 mg/dl (7-17); Calcium 7.7 mg/dl (8.4-10.2); Carbon Dioxide 26 mmol/L (22-30); Chloride 101 mmol/L (98-107); Estimated Creatinine Clearance 64 ml/min; Glucose 155 mg/dl (70-99); Potassium 4.3 mmol/L (3.5-5.1); Sodium 133 mmol/L (135-145); eGFR > 60.00
--- NOTE | 2025-02-15 03:52 | PTCARENOTE ---
systems reviewed, labs sent, CHG bath, pt has had minimal urine output, bladder scanned for 241, otherwise refer to documentation
[2025-02-15] MEDS: VENTOLIN NEBULES 2.5 MG INH (04:02)
[2025-02-15 04:34] LABS: Nucleated Red Blood Cells % 0.6 %
[2025-02-15] MEDS: MORPHINE SULFATE 1 MG IV (05:25)
[2025-02-15] MEDS: DUONEB 3 ML INH ×4 (07:35→20:57)
[2025-02-15 07:57] LABS: Glucose - Point of Care 142 mg/dl (70-99)
[2025-02-15] MEDS: NOVOLOG FLEXPEN-LOW RESISTANCE SC ×2 (08:03→11:48)
[2025-02-15] MEDS: TYLENOL 650 MG PO ×2 (08:44→18:35)
[2025-02-15] MEDS: SOLU-MEDROL PF 40 MG IV (08:44)
[2025-02-15] MEDS: ELIQUIS 5 MG PO ×2 (08:45→21:28)
[2025-02-15] MEDS: LASIX 40 MG IV ×2 (08:45→15:59)
[2025-02-15] MEDS: PACERONE 400 MG PO ×3 (08:46→21:27)
[2025-02-15] MEDS: COLCHICINE 0.3 MG PO ×2 (08:46→21:28)
[2025-02-15] MEDS: PROTONIX 40 MG PO (08:46)
[2025-02-15] MEDS: LIDOCAINE 4% PATCH 1 PATCH TOPICAL (08:51)
--- NOTE | 2025-02-15 10:37 | CM ---
Patient seen at bedside with brother present in ICU with high flow O2 in place per nursing. Patient stated that she was living at [facility] and her plan is for SNF if needed at facility. CM will continue to follow for discharge planning needs.
Plan; SNF vs home to apartment.
--- NOTE | 2025-02-15 10:55 | PTCARENOTE ---
Pt was rec'd this am from night RN at 07:15, VSS, SR with PVCs on tele, Hi Flow 02 at 50L/70% with sa02 96%. Pt is tachypneic and SHAHZAD. Pt states she is tired, and complaining of 6/10 back pain. Medications administered as per SEP, PRN Tylenol given
with positive effect. Plan discussed, CHG bath and oral care provided, pt cleaned for mod smear of BM and incontinence of urine. Pt assisted oob to chair with min assist at approx 09:15, gait strong. Pt did not desaturate with activity. Pts brother
Richardson arrived at bedside, updated. Plan discussed in rounds with care team , pt downgraded to IMU at this time. PT/OT arrived to work with patient, assisted to toilet and back into bed at approx 10:30. Pt comfortable, no needs at this time, call
cooper in hand.
--- NOTE | 2025-02-15 11:07 | W.PN.CARDCBS ---
Today's Communication / Plan
-
Back in sinus rhythm today after having more atrial fibrillation yesterday. Continue amiodarone load 40 mg p.o. 3 times daily. Continue Eliquis
Remains on high flow oxygen and in intensive care unit. Will attempt to diurese more today with Lasix 40 mg IV twice daily. Would repeat proBNP in a.m. and attempt to wean oxygen
White count remains elevated but also on steroids.
Continue low-dose colchicine and midodrine for blood pressure support.
Impression / Plan
-
Impression:
Bilateral pneumonia with clinical sepsis
Non-OR related myocardial injury related to sepsis, initial troponin 0.733
Acute HF with preserved LVEF - proBNP 19,000
Atrial fibrillation with rapid ventricular response
Hepatitis with hyperbilirubinemia
Probable MELITA
Toxic metabolic encephalopathy
Respiratory failure on BiPAP
Atrial tachycardia
Severe mitral regurgitation
Moderate aortic regurgitation
Possible pericarditis
Echo 02/11/2025: Mild LVH, hyperdynamic function, EF 70-75% or greater, dynamic LVOT gradient suggested but not demonstrated inclusively, MAC, severe MR, dilated left atrium, aortic sclerosis with moderate aortic regurgitation, dilated and
hypokinetic RV, pulmonary artery systolic pressure 52 mmHg with moderate MR and dilated right atrium
Plan:
Remains critically ill. Presents with what is most likely septic shock from bilateral pneumonia and multiorgan dysfunction.
Currently off pressors but remains on high flow oxygen. Will continue Lasix 40 mg IV bid. Hopefully can wean some oxygen today. Continue broad-spectrum antibiotics and steroids.
Remains in sinus rhythm today. Had more afib yesterday. Continue oral amiodarone 400 mg p.o. 3 times daily. Continue Eliquis.
BNP remains significantly elevated and she is on high flow O2
Continue with diuresis with Lasix 40 mg IV daily. BUN mildly elevated but creatinine normal. now with some mild hyponatremia at 133. Weight is overalll down
Troponin is elevated but overall trend is relatively flat
Echo with hyperdynamic LV function
Eventual ischemic evaluation - likely as an outpatient
Reporting atypical chest pain and EKG with diffuse ST elevations
With concern for pericarditis colchicine was added, would continue for now. EKG 02/[address] changes.
Discussed with nursing and family.
CC time 31 minutes
Progress Note - Retail Solar Advisor
Subjective
Date of Service: February 15, 2025
breathing slightly improved. remains in sinus rhythm
Objective
Labs:
02/15/25 02:48
02/15/25 02:48
Labs
Hgb 9.8 g/dL (12.0-16.0) L 02/15/25 02:48
Hct 28.6 % (37.0-47.0) L 02/15/25 02:48
Plt Count 312 10^3/uL (130-400) 02/15/25 02:48
PT 15.1 Sec (11.4-14.6) H 02/11/25 18:03
INR 1.16 02/11/25 18:03
APTT 33.3 Sec (23.4-35.0) 02/11/25 18:03
Sodium 133 mmol/L (135-145) L 02/15/25 02:48
Potassium 4.3 mmol/L (3.5-5.1) 02/15/25 02:48
BUN 47 mg/dl (7-17) H 02/15/25 02:48
Creatinine 0.8 mg/dL (0.6-1.0) 02/15/25 02:48
Glucose 155 mg/dl (70-99) H 02/15/25 02:48
Vital Signs and I&O:
Vital Signs
Temp Pulse Resp BP Pulse Ox
97.4 F 87 23 114/67 93
02/15/25 08:04 02/15/25 09:00 02/15/25 09:00 02/15/25 09:00 02/15/25 09:00
Vital Signs
Temp Pulse Resp BP Pulse Ox
97.4 F 87 23 114/67 93
02/15/25 08:04 02/15/25 09:00 02/15/25 09:00 02/15/25 09:00 02/15/25 09:00
Intake & Output
02/13/25 02/14/25 02/15/25 02/16/25
06:59 06:59 06:59 06:59
Intake Total 1448.5 / 1483.2 1174.8 / 1191.5 1087.0 / 1087.0 480 / 480
Output Total 700 / 700 1020 / 1020 1050 / 1050
Balance 748.5 / 783.2 154.8 / 171.5 37.0 / 37.0 480 / 480
Physical Exam
Physical Exam
GEN: No distress, awake, Ox3
HEENT: supple, anicteric, mmm
LUNGS: bilat rhonchi
CV: Reg, S1/S2, 1/6 syst LSB, no gallop
ABD: soft, BS+, NT/ND
EXT: No edema
NEURO: Gross non-focal
SKIN: No rash
--- NOTE | 2025-02-15 11:28 | W.PN.HOSP.TC ---
Today's Communication/Plan
-
Respiratory status remains tenuous on high flow O2
Continue antibiotics
Oral corticosteroids
IV diuresis
Assessment / Plan
Assessment / Plan
Impression
Acute hypoxic respiratory failure
Bilateral pneumonia.
Sepsis
Septic shock requiring vasopressors.
Gram-positive bacteremia
Acute CHF preserved EF
Acute kidney injury
Hypovolemic hyponatremia
Metabolic acidosis
Hyperbilirubinemia
Toxic metabolic encephalopathy secondary to acute illness
Non-MD myocardial injury in the settings of hypotension and atrial tachycardia
Atrial fibrillation with RVR new onset
Elevated pro CHF BNP
Severe MR on echo 02/11
Pulmonary hypertension PAP 52 mmHg
Hyponatremia secondary to loop diuretics
Other conditions:
Essential hypertension
Dyslipidemia.
Known cardiac murmur.
Chronic back pain.
Distant tobacco history quit in
Plan:
Acute hypoxic respiratory failure
Bilateral right greater than left pneumonia
Sepsis suspect pulmonary source
Septic shock requiring vasopressors
Preliminary blood culture with gram-positive cocci in chains 08/03
Respiratory status remains tenuous with high oxygen requirements currently on high flow
Has been weaned off vasopressor to midodrine
Continue broad-spectrum antibiotics covering community-acquired pathogens: Ceftriaxone
Initiated on corticosteroids Solu-Medrol transition to prednisone due to severity of pneumonia
Blood culture strep agalactiae 08/03
Repeat blood culture negative to date
Noted with rising leukocytosis possibly related to corticosteroids
Acute CHF preserved EF
Noted elevated cardiac markers including non-MD troponin elevation elevated pro CHF BNP at 1900.
Echocardiogram 02/11 with hyperdynamic LVEF at 70-75% with no regional wall motion abnormalities. Noted for moderate MR with a large left atrium, dilated and hypokinetic RV with pulmonary hypertension PA pressure 52 mmHg and moderate TR.
CT scan negative for pulmonary embolism.
Lower extremity Doppler negative for DVT
Questionable relevance of severe MR and possibly streptococcal bacteremia
Continue IV Lasix monitoring for worsening of hyponatremia. Dose increased to twice a day
Atrial fibrillation with RVR, new onset
Initiated on amiodarone drip with transition to oral.
Back in sinus on 02/15
Preadmission metoprolol had been discontinued due to hypotension
Initiated on Eliquis
Toxic metabolic encephalopathy.
Neurologic exam with no focal findings
Mental status improves with improved oxygenation and hemodynamics.
Acute kidney injury.
Hypovolemic hyponatremia.
Metabolic acidosis.
Improved with IV fluids and vasopressors.
Nonoliguric.
Hyperbilirubinemia with normal transaminases
Follow trend
Consider imaging if uptrending
Essential hypertension
Dyslipidemia.
Chronic lower back pain.
On tramadol and steroid taper as outpatient
If gram-positive bacteremia remains relevant with persistent back pain, consider imaging
Anticipated Discharge: > 48 hours
Subjective/Interval History
-
Date of Service: February 15, 2025
Objective Data
-
Labs:
Laboratory Results
02/15/25
02:48
WBC 48.2 H*
Hgb 9.8 L
Hct 28.6 L
Plt Count 312
Sodium 133 L
Potassium 4.3
Chloride 101
Carbon Dioxide 26
BUN 47 H
Creatinine 0.8
Glucose 155 H
Calcium 7.7 L
Vital Signs:
Vital Signs
Temp Pulse Resp BP Pulse Ox
97.4 F 87 23 114/67 93
02/15/25 08:04 02/15/25 09:00 02/15/25 09:00 02/15/25 09:00 02/15/25 09:00
I&O
02/14/25 02/15/25 02/16/25
06:59 06:59 06:59
Intake Total 1174.8 / 1191.5 1087.0 / 1087.0 480 / 480
Output Total 1020 / 1020 1050 / 1050
Balance 154.8 / 171.5 37.0 / 37.0 480 / 480
Physical Exam
-
General: Well Developed and No Apparent Distress
HEENT: Normocephalic, Atraumatic and Moist Mucous Membranes
Respiratory: Rales
Cardiac: Regular Rhythm, S1/S2 and Murmur (Systolic); Negative Rub or Gallop
GI: Soft, Nontender, Nondistended and Normal Bowel Sounds; Negative Organomegaly
Rectal: Deferred by Provider
Musculoskeletal: No Clubbing, No Cyanosis and No Edema
Skin: Negative Rash
Neuro: Nonfocal/Grossly Intact
[2025-02-15] MEDS: STERILE WATER FOR INJECTION 20 ML IV (12:34)
[2025-02-15] MEDS: ROCEPHIN 2000 MG IV (12:34)
--- NOTE | 2025-02-15 15:21 | W.PN.INTV ---
Today's Communication / Plan
Recommendations
- Switch IV Solu-Medrol to p.o. prednisone
- Continue to wean oxygen as tolerated
- Patient stable for transfer to IMU
- Pulmonary service will continue to follow-up
Assessment
-
79-year-old female with history of hyperlipidemia, murmur followed by cardiology at [place], presents with increased chest pain/shoulder pain, back pain, shortness of breath and mental status changes. Found to be in hypoxic respiratory failure
upon arrival to ED, placed on BiPAP. CT chest ruled out PE, confirmed bilateral patchy infiltrates. Patient given IV antibiotics for presumed pneumonia. We are asked to help from critical care standpoint
Conditions present prior to admission
Hypercholesterolemia
History of atrial tachycardia
Prior known murmur
Distant tobacco history, quit
02/15 overview: Patient on high flow nasal cannula, 50 L, FiO2 down to 70%, MAP of 80, saturating 96%, atrial fibrillation with heart rate 80-1 20. Not needing any pressors. No diarrhea or fever.
Assessment and plan:
#1. Acute hypoxic respiratory failure with bilateral pneumonia (R>L) with septic shock
- Streptococcus bacteremia noted on blood cultures
- Currently on high flow nasal cannula, FiO2 requirement decreasing, down to 70% this morning, saturating 96%.
- Continue IV ceftriaxone and switched azithromycin to p.o.
- Switch IV Solu-Medrol to prednisone 30 mg daily, total duration of therapy 5 days
- Continue scheduled DuoNebs 4 times a day due to hyperactive airway disease in the setting of pneumonia as well as as needed albuterol
- BiPAP as needed, high flow nasal cannula during daytime
- Lactate reassuring at 1.7
- Patient is off Salvatore-Synephrine now
- I continue Lasix 40 mg IV twice a day
- WBC count up, suspect related to steroids, no diarrhea noted.
- Stable to downgrade to IMU
#2. Pulmonary Hypertension
- Echo suggestive of elevated pulmonary artery systolic pressure of 52 with dilated and hypokinetic RV with moderate TR
- Continue supplemental O2 to keep saturations above 90%
- Unclear etiology of pulmonary hypertension
- Will need pulmonary function testing, sleep study and possibly VQ scan, can pursue these as outpatient
- RV dilation likely driving proBNP level up, will benefit from right heart catheterization eventually
#3. Atrial tachycardia with APCs
- Partly driven by underlying sepsis with bacteremia
- Amiodarone p.o.
- Continue Eliquis
#4. Elevated troponin
- [place] to be related to pneumonia with septic shock and respiratory failure
- Cardiology service on case
DVT prophylaxis started on Eliquis, GI prophylaxis p.o. pantoprazole.
'02/13/2025, Goals of care discussion: I met with patient earlier in the day and shared my concern regarding rising oxygen requirement and having to be started on high flow nasal cannula. I discussed that if oxygen requirement rises any further,
options are very limited. I briefly discussed about intubation and mechanical ventilation. Patient really confirmed her CODE STATUS choice of DNR/DNI. Patient's brother arrived in few hours and I met with patient and her brother again at bedside.
Went over patient's current clinical course and current tenuous respiratory status. We discussed about DNR/DNI versus pursuing intubation without opting to receive resuscitation if needed. Patient overall felt marginally better and has opted to
stay with the current CODE STATUS of DNR/DNI.'
Critical Care time 40 mins -- The patient is admitted for acute critical illness for the treatment of vital organ failure and/or prevention of further life-threatening conditions. Total care includes time spent in review of history, physical exam,
medications, hemodynamic/ventilator parameters, laboratory data, imaging and discussion with house staff, pharmacy, respiratory therapy, track repair person, and nursing.
Data
CT Chest 01/2025: Bilateral pneumonia, right greater than left.
Tiny bilateral pleural effusions
No pulmonary embolus. No aortic dissection.
Large hiatal hernia.
ECHO 01/2025: 1. Mild concentric left ventricular hypertrophy with hyperdynamic LV systolic
function, EF 70-75% or greater. Dynamic left ventricular outflow tract
gradient not excluded
2. Thickened mitral leaflets, mitral annular calcification, severe mitral
regurgitation and dilated left atrium
3. Aortic sclerosis with moderate aortic regurgitation
4. Dilated and hypokinetic RV, pulmonary artery systolic pressure 52 mmHg,
moderate TR and dilated right atrium
5. The ascending aorta is borderline dilated
Subjective Dataa
Subjective Data
Date of Service:
Date of Service: February 15, 2025
Subjective:
Patient comfortably sitting in chair, overall reports feeling better.
Review of Systems
Genitourinary: Other (All 14 systems reviewed and negative except as stated above in the history of present illness.)
Objective Data
Data Reviewed
Vital Signs / I&O / Oxygen:
Vital Signs
Temp Pulse Resp BP Pulse Ox
97.5 F 79 18 118/69 94
02/15/25 11:28 02/15/25 12:00 02/15/25 12:00 02/15/25 12:00 02/15/25 12:57
Intake and Output
02/14/25 02/15/25 02/16/25
06:59 06:59 06:59
Intake Total 1174.8 / 1191.5 1087.0 / 1087.0 480 / 480
Output Total 1020 / 1020 1050 / 1050
Balance 154.8 / 171.5 37.0 / 37.0 480 / 480
SaO2 94
Nasal Cannula flow liters per 50
minute
Physical Exam
General: Comfortable
HEENT: Normocephalic
Cardiovascular: S1-S2 and Peripheral Edema (Trace, improving)
Respiratory: Rhonchi (lower lobes posteriorly, improving)
GI: Soft and Non Distended
Neurology: Awake and Alert
Skin: Warm
Labs/Micro/Reports
Lab Data
02/15/25 02:48
02/15/25 02:48
Microbiology
02/11/25 18:03 Blood/Venous Blood Culture - Preliminary
No Growth in 72 hours- Final report to follow
02/13/25 16:30 Blood/Venous Blood Culture - Preliminary
No Growth in 24 hours- Final report to follow
02/13/25 16:30 Blood/Venous Blood Culture - Preliminary
No Growth in 24 hours- Final report to follow
02/11/25 11:27 Blood/Venous Blood Culture - Final
Streptococcus agalactiae
02/11/25 11:27 Blood/Venous Gram Stain - Final
[2025-02-15] MEDS: NOVOLOG FLEXPEN-LOW RESISTANCE 1 UNITS SC (16:05)
[2025-02-15 16:15] LABS: Glucose - Point of Care 172 mg/dl (70-99)
--- NOTE | 2025-02-15 17:55 | PTCARENOTE ---
Pt was assisted back oob to bedside commode and into chair for dinner. Pt with unmeasured large amount urine on pad and in toilet, sm brn soft BM in commode as well as large amount stuck on her bottom, states 'I'm too weak to push.' Pt was cleaned
with soap and water, linens changed, dinner ordered. Pt weaned off hiflow to midflow 02 12L, sats improved with sitting up in chair, pt encouraged to stay up as long as possible. Sats remain mid 90's. Pt in good spirits, brother at bedside again to
visit. Pt ate half omelet for dinner. Call cooper in hand. Safe environment continues.
[2025-02-15] MEDS: LIPITOR 10 MG PO (21:29)
[2025-02-15] MEDS: MELATONIN 5 MG PO (21:29)
[2025-02-15 22:05] LABS: Glucose - Point of Care 180 mg/dl (70-99)
[2025-02-15] MEDS: NOVOLOG FLEXPEN 2 UNITS SC (22:57)
--- NOTE | 2025-02-15 23:17 | PTCARENOTE ---
systems reviewed, BG 180 2 units given per MAR, CHG bath, PW changed, MFNC 12L SpO2 95%, diminished throughout, dyspnea on exertion, otherwise refer to documentation.
[2025-02-16] VITALS (21 sets, daily range): BP systolic 98–127; BP diastolic 58–85; PULSE 92; O2SAT 93; BMI 31.8
[2025-02-16] MEDS: MORPHINE SULFATE 1 MG IV (01:13)
[2025-02-16] MEDS: VENTOLIN NEBULES 2.5 MG INH (01:22)
--- NOTE | 2025-02-16 01:27 | PTCARENOTE ---
pt SOB after trying to get comfortable in bed, SpO2 86 and tachypneic, pt repositioned, RT notified for a treatment, ASSOCIATE PRINCIPAL ordered morphine given per SEP, pt reports feeling much better.
[2025-02-16 04:40] LABS: Hematocrit 26.5 % (37.0-47.0); Hemoglobin 9.2 g/dL (12.0-16.0); Mean Corp Hgb Conc. 34.7 g/dL (33.0-37.0); Mean Corpuscular Volume 83.9 fL (81.0-99.0); Platelet Count 326 10^3/uL (130-400); Red Cell Dist. Width 14.8 % (11.5-14.5)
[2025-02-16 04:59] LABS: ALT (SGPT) 36 U/L (0-35); AST (SGOT) 30 U/L (14-36); Albumin 2.7 g/dl (3.5-5.0); Alkaline Phosphatase 146 U/L (38-126); Blood Urea Nitrogen 46 mg/dl (7-17); Calcium 7.4 mg/dl (8.4-10.2); Carbon Dioxide 27 mmol/L (22-30); Chloride 100 mmol/L (98-107); Estimated Creatinine Clearance 51 ml/min; Glucose 147 mg/dl (70-99); Magnesium 2.1 mg/dl (1.6-2.3); Potassium 3.9 mmol/L (3.5-5.1); Sodium 132 mmol/L (135-145); Total Protein 5.1 g/dl (6.3-8.2); eGFR 56.60
[2025-02-16 05:30] LABS: Absolute Neutrophils -Man Diff 38.6 10^3/uL (1.4-6.5)
[2025-02-16 05:31] LABS: Anisocytosis 2+; Normal RBC Morphology No; Platelets Checked Yes; Total Cells Counted 100
[2025-02-16] MEDS: DUONEB 3 ML INH ×3 (07:24→17:38)
--- NOTE | 2025-02-16 07:54 | W.PN.PUL3 ---
Today's Communication / Plan
-
- Increase lasix to 80 mg Iv BID
- f/u CXR in AM
- Continue to wean O2 as tolerated, on mid flow now.
- Transfer to telemetry
Assessment
-
79-year-old female with history of hyperlipidemia, murmur followed by cardiology at [place], presents with increased chest pain/shoulder pain, back pain, shortness of breath and mental status changes. Found to be in hypoxic respiratory failure
upon arrival to ED, placed on BiPAP. CT chest ruled out PE, confirmed bilateral patchy infiltrates. Patient given IV antibiotics for presumed pneumonia. We are asked to help from critical care standpoint
Conditions present prior to admission
Hypercholesterolemia
History of atrial tachycardia
Prior known murmur
Distant tobacco history, quit
Overnight, patient had increased dyspnea around mid night, responded to PRn Albuterol and 1 dose of Morphine
Assessment and plan:
#1. Acute hypoxic respiratory failure with bilateral pneumonia (R>L) with septic shock
- Streptococcus bacteremia noted on blood cultures, repeat cultures negative
- O2 requirement continues to decrease. Mid flow now at 12 ltr, saturating 93%
- Continue IV ceftriaxone
- Prednisone for 5 more days
- Off BIPAP now, use as needed
- Patient is off Salvatore-Synephrine now
- Increase Lasix to 80 mg IV twice daily.
#2. Severe MR with suspect Pulmonary edema
- Trace pedal edema, crackles on exam and CXR appears more congested
- Lower lobe infiltrates have improved on imaging today however increased right upper lobe infiltrate, ? Related to mitral regurgitation
- Increase Lasix to 80 mg IV BID
#3. Pulmonary Hypertension
- Echo suggestive of elevated pulmonary artery systolic pressure of 52 with dilated and hypokinetic RV with moderate TR
- Continue supplemental O2 to keep saturations above 90%
- Unclear etiology of pulmonary hypertension
- Will need pulmonary function testing, sleep study and possibly VQ scan, can pursue these as outpatient
- RV dilation likely driving proBNP level up, will benefit from right heart catheterization eventually
#4. Atrial tachycardia with APCs
- Partly driven by underlying sepsis with bacteremia
- Continue Eliquis and PO Amiodarone
#5. Elevated troponin
- [place] to be related to pneumonia with septic shock and respiratory failure
- Cardiology service on case
DVT prophylaxis started on Eliquis, GI prophylaxis p.o. pantoprazole.
'02/13/2025, Goals of care discussion: I met with patient earlier in the day and shared my concern regarding rising oxygen requirement and having to be started on high flow nasal cannula. I discussed that if oxygen requirement rises any further,
options are very limited. I briefly discussed about intubation and mechanical ventilation. Patient really confirmed her CODE STATUS choice of DNR/DNI. Patient's brother arrived in few hours and I met with patient and her brother again at bedside.
Went over patient's current clinical course and current tenuous respiratory status. We discussed about DNR/DNI versus pursuing intubation without opting to receive resuscitation if needed. Patient overall felt marginally better and has opted to
stay with the current CODE STATUS of DNR/DNI.'
Total time spent on this consultation/encounter __42__ minutes which includes review of history, physical exam, medications, laboratory data, personal review of imaging, extensive review of outpatient records, discussion with care team and
respiratory therapy.
Data
CT Chest 01/2025: Bilateral pneumonia, right greater than left.
Tiny bilateral pleural effusions
No pulmonary embolus. No aortic dissection.
Large hiatal hernia.
ECHO 01/2025: 1. Mild concentric left ventricular hypertrophy with hyperdynamic LV systolic
function, EF 70-75% or greater. Dynamic left ventricular outflow tract
gradient not excluded
2. Thickened mitral leaflets, mitral annular calcification, severe mitral
regurgitation and dilated left atrium
3. Aortic sclerosis with moderate aortic regurgitation
4. Dilated and hypokinetic RV, pulmonary artery systolic pressure 52 mmHg,
moderate TR and dilated right atrium
5. The ascending aorta is borderline dilated
Subjective Dataa
Subjective Data
Date of Service:
Date of Service: February 14, 2025
Subjective Data
-
Date of Service:
Date of Service: February 16, 2025
Subjective:
Patient comfortable lying in bed on mid flow currently, had an episode of shortness of breath overnight required albuterol and 1 dose of morphine.
Objective Data
Data Reviewed
Vital Signs / I&O / Oxygen:
Vital Signs
Temp Pulse Resp BP Pulse Ox
98 F 97 20 105/60 93
02/16/25 03:40 02/16/25 07:27 02/16/25 07:27 02/16/25 05:00 02/16/25 07:27
Intake and Output
02/15/25 02/16/25 02/17/25
06:59 06:59 06:59
Intake Total 1087.0 / 1087.0 1200 / 1200
Output Total 1050 / 1050 750 / 750
Balance 37.0 / 37.0 450 / 450
SaO2 93
Nasal Cannula flow liters per 12
minute
Physical Exam
HEENT: Normocephalic
Cardiovascular: S1-S2, Murmur (Pansystolic) and Peripheral Edema (Trace edema bilaterally)
Respiratory: Crackles
GI: Soft and Non Distended
Neurology: Awake and Alert
Skin: Warm
Labs/Micro/Reports
Lab Data
02/16/25 04:11
02/16/25 04:11
Microbiology
02/11/25 18:03 Blood/Venous Blood Culture - Preliminary
No Growth in 4 days- Final report to follow
02/13/25 16:30 Blood/Venous Blood Culture - Preliminary
No Growth in 48 hours- Final report to follow
02/13/25 16:30 Blood/Venous Blood Culture - Preliminary
No Growth in 48 hours- Final report to follow
02/11/25 11:27 Blood/Venous Blood Culture - Final
Streptococcus agalactiae
02/11/25 11:27 Blood/Venous Gram Stain - Final
[2025-02-16 08:04] LABS: Glucose - Point of Care 140 mg/dl (70-99)
[2025-02-16] MEDS: LIDOCAINE 4% PATCH 1 PATCH TOPICAL (08:17)
[2025-02-16] MEDS: LASIX 80 MG IV ×2 (08:18→15:03)
[2025-02-16] MEDS: COLCHICINE 0.3 MG PO ×2 (08:19→20:23)
[2025-02-16] MEDS: KCL 20 MEQ PO (08:19)
[2025-02-16] MEDS: PROTONIX 40 MG PO (08:19)
[2025-02-16] MEDS: PACERONE 400 MG PO (08:20)
[2025-02-16] MEDS: NOVOLOG FLEXPEN-LOW RESISTANCE SC (08:20)
[2025-02-16] MEDS: DELTASONE 30 MG PO (08:20)
[2025-02-16] MEDS: ELIQUIS 5 MG PO ×2 (08:20→20:23)
--- NOTE | 2025-02-16 08:30 | PTCARENOTE ---
OOB to the chair. She appears very tired. Breath sounds posteriorly dim throughout. 13 liters midflow. Pulse ox 91-94%. Improved to 94-96%. Improved to 94-96% after demonstrating IS to 500ml's and acapella. SHe was highly encouraged to use these two
at least every 10 minutes while she is awake to assist with oxygen tapering. Left wrist #20g protective catheter flushed and patent . Right upper arm midline also flushed and patent. Bounding peripheral pulses. Trace to +1 anasarca. She was informed
of the plan of care regarding OOB to the chair, conserving her oxygen consumption with a multitude of visitors and to try t o limit them. She verbalized her agreement on this. Safe environment maintained. Will continue to monitor.
--- NOTE | 2025-02-16 10:12 | W.PN.CARDCBS ---
Today's Communication / Plan
-
Decrease amiodarone to 200 mg p.o. twice daily. Continue midodrine.
Agree with increasing Lasix to 80 mg IV twice daily. Continue Eliquis.
Hopefully can diurese.
We discussed options for her mitral valve including DYLAN/cardiac cath. She currently is DNR but is going to think about options.
Impression / Plan
-
Impression:
Bilateral pneumonia with clinical sepsis
Non-RI related myocardial injury related to sepsis, initial troponin 0.733
Acute HF with preserved LVEF - proBNP 19,000
Atrial fibrillation with rapid ventricular response
Hepatitis with hyperbilirubinemia
Probable MELITA
Toxic metabolic encephalopathy
Respiratory failure on BiPAP
Atrial tachycardia
Severe mitral regurgitation
Moderate aortic regurgitation
Possible pericarditis
Echo 02/11/2025: Mild LVH, hyperdynamic function, EF 70-75% or greater, dynamic LVOT gradient suggested but not demonstrated inclusively, MAC, severe MR, dilated left atrium, aortic sclerosis with moderate aortic regurgitation, dilated and
hypokinetic RV, pulmonary artery systolic pressure 52 mmHg with moderate MR and dilated right atrium
Plan:
She remains on high flow oxygen. She has diuresed some but proBNP remains elevated. Agree with increasing Lasix to 80 mg IV twice daily. Can also use Zaroxolyn as needed.
I had a lengthy discussion with her regarding her mitral regurgitation. She is still considering following up either at [place] or here at [place]. We discussed evaluation of her mitral valve including DYLAN and cardiac cath and she is going to
think about this option. If she does pursue this option she clearly cannot be DNR. For now we will continue medical therapy.
Creatinine stable at 1.0. Hyponatremia also unchanged at 132.
She remains in sinus rhythm. Will decrease amiodarone to 200 mg p.o. twice daily. Continue midodrine.
Troponin is elevated but overall trend is relatively flat
Echo with hyperdynamic LV function
If she does pursue evaluation regarding her mitral valve she will need to be full code and get a cardiac cath.
Reporting atypical chest pain and EKG with diffuse ST elevations
With concern for pericarditis colchicine was added, would continue for now. EKG 02/[address] changes.
Progress Note - Transfer Man
Subjective
Date of Service: February 16, 2025
Continues to remain on high flow oxygen. Breathing is subjectively slightly improved. She remains in sinus rhythm. Denies chest pains.
Objective
Labs:
02/16/25 04:11
02/16/25 04:11
Labs
Hgb 9.2 g/dL (12.0-16.0) L 02/16/25 04:11
Hct 26.5 % (37.0-47.0) L 02/16/25 04:11
Plt Count 326 10^3/uL (130-400) 02/16/25 04:11
PT 15.1 Sec (11.4-14.6) H 02/11/25 18:03
INR 1.16 02/11/25 18:03
APTT 33.3 Sec (23.4-35.0) 02/11/25 18:03
Sodium 132 mmol/L (135-145) L 02/16/25 04:11
Potassium 3.9 mmol/L (3.5-5.1) 02/16/25 04:11
BUN 46 mg/dl (7-17) H 02/16/25 04:11
Creatinine 1.0 mg/dL (0.6-1.0) 02/16/25 04:11
Glucose 147 mg/dl (70-99) H 02/16/25 04:11
Vital Signs and I&O:
Vital Signs
Temp Pulse Resp BP Pulse Ox
97.2 F 92 20 117/69 92
02/16/25 08:05 02/16/25 09:56 02/16/25 09:56 02/16/25 09:56 02/16/25 10:01
Vital Signs
Temp Pulse Resp BP Pulse Ox
97.2 F 92 20 117/69 92
02/16/25 08:05 02/16/25 09:56 02/16/25 09:56 02/16/25 09:56 02/16/25 10:01
Intake & Output
02/14/25 02/15/25 02/16/25 02/17/25
06:59 06:59 06:59 06:59
Intake Total 1174.8 / 1191.5 1087.0 / 1087.0 1200 / 1200 240 / 240
Output Total 1020 / 1020 1050 / 1050 750 / 750 600 / 600
Balance 154.8 / 171.5 37.0 / 37.0 450 / 450 -360 / -360
Physical Exam
Physical Exam
GEN: No distress, awake, Ox3
HEENT: supple, anicteric, mmm
LUNGS: scatt rhonchi
CV: Reg, S1/S2, 2/6 syst AHSM
ABD: soft, BS+, NT/ND
EXT: tarce edema
NEURO: Gross non-focal
SKIN: No rash
[2025-02-16] MEDS: ROCEPHIN 2000 MG IV (11:41)
[2025-02-16] MEDS: STERILE WATER FOR INJECTION 20 ML IV (11:42)
[2025-02-16] MEDS: NOVOLOG FLEXPEN-LOW RESISTANCE 1 UNITS SC ×2 (11:44→17:44)
[2025-02-16 12:56] LABS: Glucose - Point of Care 152 mg/dl (70-99)
--- NOTE | 2025-02-16 13:24 | PTCARENOTE ---
patient report received @1045, assessments per work list. poor appetite. coughing and deep breathing encouraged. denies pain, c/o fatigue. assisted to bed, call cooper in reach. patient brother at bedside. updated with plan of care and level of care
order change to telemetry
--- NOTE | 2025-02-16 15:58 | PTCARENOTE ---
Addendum entered by Anastacia Guzman RN 02/16/25 17:30:
transport to [address] [place] [address] with all belongings
Original Note:
report called to [address] [place] [address] rn
--- NOTE | 2025-02-16 16:26 | CM ---
CXR today-severe multifocal PNA, IV/Rocephin, IV/Lasix increased, IV/Lopresor, Wean O2 as tolerated. Discharge POC: Therapy rec for SNF. Patient resides at [facility]. Referral for [facility] SNF forwarded.
--- NOTE | 2025-02-16 17:03 | W.PN.HOSP.TC ---
Today's Communication/Plan
-
Attempt to wean off oxygen.
IV diuresis
Midodrine
Empiric antibiotics
Follow-up chest x-ray
Assessment / Plan
Assessment / Plan
Impression
Acute hypoxic respiratory failure
Bilateral pneumonia.
Sepsis
Septic shock requiring vasopressors.
Gram-positive bacteremia
Acute CHF preserved EF
Acute kidney injury
Hypovolemic hyponatremia
Metabolic acidosis
Hyperbilirubinemia
Toxic metabolic encephalopathy secondary to acute illness
Non-[place] myocardial injury in the settings of hypotension and atrial tachycardia
Atrial fibrillation with RVR new onset
Elevated pro CHF BNP
Severe MR on echo 02/11
Pulmonary hypertension PAP 52 mmHg
Hyponatremia secondary to loop diuretics
Other conditions:
Essential hypertension
Dyslipidemia.
Known cardiac murmur.
Chronic back pain.
Distant tobacco history quit in
Plan:
Acute hypoxic respiratory failure
Bilateral right greater than left infiltrates suggestive pneumonia versus pulmonary edema
Suspected sepsis with pulmonary source
Shock septic versus cardiogenic with hypotension requiring vasopressors
Preliminary blood culture with gram-positive cocci in chains /
Despite of aggressive treatment with antibiotics, IV diuresis respiratory status remains tenuous while patient on mid flow oxygen
Hemodynamics reasonably stabilized while off vasopressor transition to midodrine
Echocardiogram with preserved EF, although with concern for moderate to severe MR and at this point unexplained pulmonary hypertension (without evidence of significant pulmonary disease in the past)
She has migrating infiltrates that possibly consistent with pulmonary edema
Plan is to continue empiric antibiotics/ceftriaxone. Noted with rising leukocytosis status post corticosteroids
Steroids has been discontinued
Continue diuresis with Lasix increased to 80 mg twice a day with attempt to wean off oxygen
In discussion with cardiology and pulmonary services, could be reasonable to evaluate degree of MR which appears severe on TTE, although not required close with DYLAN and catheterization once respiratory status allows
Acute CHF preserved EF
Noted elevated cardiac markers including non-[place] troponin elevation elevated pro CHF BNP at 1900.
Echocardiogram 02/11 with hyperdynamic LVEF at 70-75% with no regional wall motion abnormalities. Noted for moderate MR with a large left atrium, dilated and hypokinetic RV with pulmonary hypertension PA pressure 52 mmHg and moderate TR.
CT scan negative for pulmonary embolism.
Lower extremity Doppler negative for DVT
Possibly evaluation of MR as outlined above
Continue IV Lasix monitoring for worsening of hyponatremia. Dose increased to furosemide 80 mg twice a day
Atrial fibrillation with RVR, new onset
Initiated on amiodarone drip with transition to oral.
Back in sinus on 02/15
Preadmission metoprolol had been discontinued due to hypotension
Initiated on Eliquis
Toxic metabolic encephalopathy.
Neurologic exam with no focal findings
Mental status improves with improved oxygenation and hemodynamics.
Acute kidney injury.
Hypovolemic hyponatremia.
Metabolic acidosis.
Improved with IV fluids and vasopressors.
Nonoliguric.
Hyperbilirubinemia with normal transaminases
Follow trend
Consider imaging if uptrending
Essential hypertension
Dyslipidemia.
Chronic lower back pain.
On tramadol and steroid taper as outpatient
If gram-positive bacteremia remains relevant with persistent back pain, consider imaging
Anticipated Discharge: > 48 hours
Subjective/Interval History
-
Date of Service: February 16, 2025
Objective Data
-
Vital Signs:
Vital Signs
Temp Pulse Resp BP Pulse Ox
98.3 F 86 19 109/66 94
02/16/25 15:02 02/16/25 15:03 02/16/25 14:00 02/16/25 15:03 02/16/25 15:02
I&O
02/15/25 02/16/25 02/17/25
06:59 06:59 06:59
Intake Total 1087.0 / 1087.0 1200 / 1200 960 / 960
Output Total 1050 / 1050 750 / 750 900 / 900
Balance 37.0 / 37.0 450 / 450 60 / 60
Physical Exam
-
General: Well Developed and No Apparent Distress
HEENT: Normocephalic, Atraumatic and Moist Mucous Membranes
Respiratory: Rales
Cardiac: Regular Rhythm, S1/S2 and Murmur (Systolic); Negative Rub or Gallop
GI: Soft, Nontender, Nondistended and Normal Bowel Sounds; Negative Organomegaly
Rectal: Deferred by Provider
Musculoskeletal: No Clubbing, No Cyanosis and No Edema
Skin: Negative Rash
Neuro: Nonfocal/Grossly Intact
--- NOTE | 2025-02-16 17:34 | TRANSFER ---
pt arrives at 1720 in hospital bed from the ICU, report received from Anastacia Joshi via phone PROFESSOR OF NURSING. pt aaox3 with stable vitals on 8L midflow. right midline present, nothing infusing. spouse at bedside. pt oriented to unit. denies any respiratory
issues/concerns at the moment. no sob/increase wob noted. pt working on ordering dinner. 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 pt with pure wick present; discussed/educated on risks including UTI and skin breakdown; pt receptive
but would like to maintain at this time d/t increased lasix status. plan of care continues to be followed.
[2025-02-16] MEDS: SODIUM CHLORIDE 3% FOR INHALATION 1 VIAL INH (17:38)
[2025-02-16 17:43] LABS: Glucose - Point of Care 156 mg/dl (70-99)
--- NOTE | 2025-02-16 18:16 | PTCARENOTE ---
pure wick discontinued. pt assisted onto bedside commode then into bedside recliner chair for dinner. pt tolerated activity well requiring one person assist.
[2025-02-16] MEDS: LIPITOR 10 MG PO (20:22)
[2025-02-16] MEDS: MELATONIN 5 MG PO (20:22)
[2025-02-16] MEDS: PACERONE 200 MG PO (20:22)
[2025-02-17 03:38] VITALS: BP 115/80
[2025-02-17 06:00] VITALS: BMI 30.6
[2025-02-17 07:07] LABS: Hematocrit 27.3 % (37.0-47.0); Hemoglobin 9.5 g/dL (12.0-16.0); Mean Corp Hgb Conc. 34.8 g/dL (33.0-37.0); Mean Corpuscular Volume 85.3 fL (81.0-99.0); Platelet Count 337 10^3/uL (130-400); Red Cell Dist. Width 14.8 % (11.5-14.5)
[2025-02-17 07:10] VITALS: BP 127/71
[2025-02-17 07:11] LABS: Blood Urea Nitrogen 47 mg/dl (7-17); Calcium 7.5 mg/dl (8.4-10.2); Carbon Dioxide 29 mmol/L (22-30); Chloride 98 mmol/L (98-107); Estimated Creatinine Clearance 56 ml/min; Glucose 97 mg/dl (70-99); Potassium 3.7 mmol/L (3.5-5.1); Sodium 133 mmol/L (135-145); eGFR > 60.00
[2025-02-17 07:32] LABS: Glucose - Point of Care 109 mg/dl (70-99)
[2025-02-17 07:39] LABS: Nucleated Red Blood Cells % 0.2 %
[2025-02-17] MEDS: SODIUM CHLORIDE 3% FOR INHALATION 1 VIAL INH ×2 (07:57→17:59)
[2025-02-17] MEDS: DUONEB 3 ML INH ×2 (07:57→17:59)
[2025-02-17] MEDS: NOVOLOG FLEXPEN-LOW RESISTANCE SC (08:52)
[2025-02-17] MEDS: PROTONIX 40 MG PO (08:53)
[2025-02-17] MEDS: ELIQUIS 5 MG PO ×2 (08:53→20:40)
[2025-02-17] MEDS: COLCHICINE 0.3 MG PO ×2 (08:53→20:40)
[2025-02-17] MEDS: DELTASONE 30 MG PO (08:54)
[2025-02-17] MEDS: LASIX 80 MG IV ×2 (08:56→16:18)
[2025-02-17] MEDS: LIDOCAINE 4% PATCH 1 PATCH TOPICAL (08:59)
[2025-02-17] MEDS: PACERONE 200 MG PO ×2 (09:00→20:00)
--- NOTE | 2025-02-17 09:48 | W.PN.HOSP.TC ---
Today's Communication/Plan
-
IV Lasix. IV antibiotics
Assessment / Plan
Assessment / Plan
Physical exam:
General: Acute on chronically ill
HEENT: Normocephalic, Atraumatic and Moist Mucous Membranes
Respiratory: Clear to Auscultation; Negative Wheezes, Rales or Rhonchi
Cardiac: Regular Rhythm and S1/S2
GI: Soft, Nontender and Nondistended
Musculoskeletal: No Clubbing, No Cyanosis and No Edema
Neuro: Awake, Alert and Oriented, generalized weakness, no neurological deficit
Psych: Calm
A/P:
Impression
Acute hypoxic respiratory failure
Bilateral pneumonia.
Sepsis
Septic shock requiring vasopressors.
Gram-positive bacteremia
Acute CHF preserved EF
Acute kidney injury
Hypovolemic hyponatremia
Metabolic acidosis
Hyperbilirubinemia
Toxic metabolic encephalopathy secondary to acute illness
Non-[place] myocardial injury in the settings of hypotension and atrial tachycardia
Atrial fibrillation with RVR new onset
Elevated pro CHF BNP
Severe MR on echo 02/11
Pulmonary hypertension PAP 52 mmHg
Hyponatremia secondary to loop diuretics
Other conditions:
Essential hypertension
Dyslipidemia.
Known cardiac murmur.
Chronic back pain.
Distant tobacco history quit in
Plan:
Acute hypoxic respiratory failure
Bilateral right greater than left infiltrates suggestive pneumonia versus pulmonary edema
Suspected sepsis with pulmonary source
Shock septic versus cardiogenic with hypotension requiring vasopressors
Preliminary blood culture with gram-positive cocci in chains 1/
Despite of aggressive treatment with antibiotics, IV diuresis respiratory status remains tenuous while patient on mid flow oxygen
Hemodynamics reasonably stabilized while off vasopressor transition to midodrine
Echocardiogram with preserved EF, although with concern for moderate to severe MR and at this point unexplained pulmonary hypertension (without evidence of significant pulmonary disease in the past)
She has migrating infiltrates that possibly consistent with pulmonary edema
Plan is to continue empiric antibiotics/ceftriaxone. Noted with rising leukocytosis status post corticosteroids
Steroids has been discontinued intravenously but she is on oral steroids.
Continue diuresis with Lasix increased to 80 mg twice a day with attempt to wean off oxygen
In discussion with cardiology and pulmonary services, could be reasonable to evaluate degree of MR which appears severe on TTE, although not required close with DYLAN and catheterization once respiratory status allows
Acute CHF preserved EF
Noted elevated cardiac markers including non-[place] troponin elevation elevated pro CHF BNP at 1900.
Echocardiogram 02/11 with hyperdynamic LVEF at 70-75% with no regional wall motion abnormalities. Noted for moderate MR with a large left atrium, dilated and hypokinetic RV with pulmonary hypertension PA pressure 52 mmHg and moderate TR.
CT scan negative for pulmonary embolism.
Lower extremity Doppler negative for DVT
Possibly evaluation of MR as outlined above
Continue IV Lasix monitoring for worsening of hyponatremia. Dose increased to furosemide 80 mg twice a day
Atrial fibrillation with RVR, new onset
Initiated on amiodarone drip with transition to oral.
Back in sinus on 02/15
Preadmission metoprolol had been discontinued due to hypotension
Initiated on Eliquis
Toxic metabolic encephalopathy.
Neurologic exam with no focal findings
Mental status improves with improved oxygenation and hemodynamics.
Acute kidney injury.
Hypovolemic hyponatremia.
Metabolic acidosis.
Improved with IV fluids and vasopressors.
Nonoliguric.
Hyperbilirubinemia with normal transaminases
Follow trend
Consider imaging if uptrending
Essential hypertension
Dyslipidemia.
Chronic lower back pain.
On tramadol and steroid taper as outpatient
If gram-positive bacteremia remains relevant with persistent back pain, consider imaging--> blood culture with Streptococcus agalactiae and after that all blood cultures negative for so most likely contaminant.
Total time spent on today's encounter was 52 minutes which included time spent in counseling the patient/family regarding diagnosis and treatment plan as listed above, goals of care, and symptom management. Case was discussed with nursing staff,
specialists, and care coordinators/case management. All labs and imaging personally reviewed by me. Remainder the time spent in detailed review of previous records, lab data, imaging, and other medical provider documentation.
Anticipated Discharge: > 48 hours
Subjective/Interval History
-
Date of Service: February 17, 2025
Patient feels tired overall today. No chest pain or shortness of breath. On supplemental oxygen. Afebrile
Objective Data
-
Labs:
Laboratory Results
02/17/25
05:29
WBC 42.2 H*
Hgb 9.5 L
Hct 27.3 L
Plt Count 337
Sodium 133 L
Potassium 3.7
Chloride 98
Carbon Dioxide 29
BUN 47 H
Creatinine 0.9
Glucose 97
Calcium 7.5 L
Vital Signs:
Vital Signs
Temp Pulse Resp BP Pulse Ox
98.2 F 85 16 127/71 96
02/17/25 07:10 02/17/25 08:00 02/17/25 08:00 02/17/25 07:10 02/17/25 08:00
I&O
02/16/25 02/17/25 02/18/25
06:59 06:59 06:59
Intake Total 1200 / 1200 1440 / 1440
Output Total 750 / 750 2100 / 2100
Balance 450 / 450 -660 / -660
[2025-02-17 11:00] VITALS: BP 112/58
--- NOTE | 2025-02-17 11:28 | W.PN.CARDCBS ---
Today's Communication / Plan
-
Continue diuresis
Consider PT for deconditioning
Impression / Plan
-
Impression:
Bilateral pneumonia with clinical sepsis
Non-[place] related myocardial injury related to sepsis, initial troponin 0.733
Acute HF with preserved LVEF - proBNP 19,000
Atrial fibrillation with rapid ventricular response
Hepatitis with hyperbilirubinemia
Probable MELITA
Toxic metabolic encephalopathy
Respiratory failure on BiPAP
Atrial tachycardia
Severe mitral regurgitation
Moderate aortic regurgitation
Possible pericarditis
Echo 02/11/2025: Mild LVH, hyperdynamic function, EF 70-75% or greater, dynamic LVOT gradient suggested but not demonstrated inclusively, MAC, severe MR, dilated left atrium, aortic sclerosis with moderate aortic regurgitation, dilated and
hypokinetic RV, pulmonary artery systolic pressure 52 mmHg with moderate MR and dilated right atrium
Plan:
She remains on high oxygen requirement.
Diuresis with Lasix to 80 mg IV twice daily. Can also use Zaroxolyn as needed.
Creatinine stable at 0.9
Weight is down 8 pounds if accurate so we will continue with current IV Lasix dosing.
She has previously had a lengthy discussion with Dr. Raymond regarding her mitral regurgitation. She is still considering following up either at [facility] or here at [facility]. For now we will continue medical therapy which consist primarily of
diuresis.
She remains in sinus rhythm.
Amiodarone was decreased to 200 mg twice daily on February 16, 2025
At times she has been hypotensive/orthostatic.
Continue midodrine.
Deconditioning
She would likely benefit from PT
Troponin is elevated but overall trend is relatively flat
Echo with hyperdynamic LV function
If she does pursue evaluation regarding her mitral valve she will need to be full code and get a cardiac cath.
Reporting atypical chest pain and EKG with diffuse ST elevations
With concern for pericarditis colchicine was added, would continue for now. EKG 02/[address] changes.
Progress Note - Staff Nurse [facility] Resource Team
Subjective
Date of Service: February 17, 2025
She tells me that her biggest concern right now is that she feels weak, particularly when she stands.
Objective
Labs:
02/17/25 05:29
02/17/25 05:29
Labs
Hgb 9.5 g/dL (12.0-16.0) L 02/17/25 05:29
Hct 27.3 % (37.0-47.0) L 02/17/25 05:29
Plt Count 337 10^3/uL (130-400) 02/17/25 05:29
PT 15.1 Sec (11.4-14.6) H 02/11/25 18:03
INR 1.16 02/11/25 18:03
APTT 33.3 Sec (23.4-35.0) 02/11/25 18:03
Sodium 133 mmol/L (135-145) L 02/17/25 05:29
Potassium 3.7 mmol/L (3.5-5.1) 02/17/25 05:29
BUN 47 mg/dl (7-17) H 02/17/25 05:29
Creatinine 0.9 mg/dL (0.6-1.0) 02/17/25 05:29
Glucose 97 mg/dl (70-99) 02/17/25 05:29
Vital Signs and I&O:
Vital Signs
Temp Pulse Resp BP Pulse Ox
98.2 F 85 16 127/71 96
02/17/25 07:10 02/17/25 08:00 02/17/25 08:00 02/17/25 07:10 02/17/25 08:00
Vital Signs
Temp Pulse Resp BP Pulse Ox
98.2 F 85 16 127/71 96
02/17/25 07:10 02/17/25 08:00 02/17/25 08:00 02/17/25 07:10 02/17/25 08:00
Intake & Output
02/15/25 02/16/25 02/17/25 02/18/25
06:59 06:59 06:59 06:59
Intake Total 1087.0 / 1087.0 1200 / 1200 1440 / 1440
Output Total 1050 / 1050 750 / 750 2100 / 2100
Balance 37.0 / 37.0 450 / 450 -660 / -660
Physical Exam
Physical Exam
Elderly woman resting in bed no acute distress
Regular rate and rhythm with normal S1 and S2, there is a grade 2/6 apical holosystolic murmur with no rubs.
Lungs are clear to auscultation bilaterally without wheezes rales or rhonchi
Extremities show +1 pretibial edema bilaterally
[2025-02-17 12:21] LABS: Glucose - Point of Care 163 mg/dl (70-99)
[2025-02-17] MEDS: STERILE WATER FOR INJECTION 20 ML IV (12:46)
[2025-02-17] MEDS: ROCEPHIN 2000 MG IV (12:47)
[2025-02-17] MEDS: NOVOLOG FLEXPEN-LOW RESISTANCE 1 UNITS SC ×2 (12:47→17:21)
[2025-02-17] MEDS: TYLENOL 650 MG PO (13:56)
[2025-02-17 16:14] VITALS: BP 116/73
[2025-02-17 17:13] LABS: Glucose - Point of Care 173 mg/dl (70-99)
[2025-02-17 19:13] VITALS: BP 117/64
[2025-02-17] MEDS: MELATONIN 5 MG PO (22:17)
[2025-02-17] MEDS: LIPITOR 10 MG PO (22:18)
[2025-02-17 23:00] VITALS: BP 100/54
[2025-02-17 23:26] LABS: Glucose - Point of Care 137 mg/dl (70-99)
[2025-02-18] VITALS (7 sets, daily range): BP systolic 82–134; BP diastolic 48–76; BMI 29.9
[2025-02-18 06:37] LABS: Hematocrit 30.2 % (37.0-47.0); Hemoglobin 10.1 g/dL (12.0-16.0); Mean Corp Hgb Conc. 33.4 g/dL (33.0-37.0); Mean Corpuscular Volume 86.0 fL (81.0-99.0); Platelet Count 355 10^3/uL (130-400); Red Cell Dist. Width 16.0 % (11.5-14.5)
[2025-02-18 06:46] LABS: Blood Urea Nitrogen 42 mg/dl (7-17); Calcium 7.5 mg/dl (8.4-10.2); Carbon Dioxide 30 mmol/L (22-30); Chloride 96 mmol/L (98-107); Estimated Creatinine Clearance 55 ml/min; Glucose 99 mg/dl (70-99); Magnesium 1.9 mg/dl (1.6-2.3); Potassium 3.4 mmol/L (3.5-5.1); Sodium 133 mmol/L (135-145); eGFR > 60.00
[2025-02-18 07:23] LABS: Glucose - Point of Care 108 mg/dl (70-99)
[2025-02-18] MEDS: NOVOLOG FLEXPEN-LOW RESISTANCE SC ×2 (08:02→12:35)
[2025-02-18] MEDS: SODIUM CHLORIDE 3% FOR INHALATION 1 VIAL INH ×2 (08:09→20:09)
[2025-02-18] MEDS: DUONEB 3 ML INH ×2 (08:09→20:09)
--- NOTE | 2025-02-18 08:09 | W.PN.HOSP.TC ---
Today's Communication/Plan
-
IV Lopressor. IV Lasix. Pain control
Assessment / Plan
Assessment / Plan
Physical exam:
General: Acute on chronically ill. This morning on acute distress.
HEENT: Normocephalic, Atraumatic and Moist Mucous Membranes
Respiratory: Clear to Auscultation; Negative Wheezes, Rales or Rhonchi
Cardiac: Irregular rate and rhythm, tachycardic, and S1/S2
GI: Soft, Nontender and Nondistended
Musculoskeletal: Left shoulder tenderness on range of motion. No Clubbing, No Cyanosis and No Edema
Neuro: Awake, Alert and Oriented, generalized weakness, no neurological deficit
Psych: Calm
A/P:
Impression
Acute hypoxic respiratory failure
Bilateral pneumonia.
Sepsis
Septic shock requiring vasopressors.
Gram-positive bacteremia
Acute CHF preserved EF
Acute kidney injury
Hypovolemic hyponatremia
Metabolic acidosis
Hyperbilirubinemia
Toxic metabolic encephalopathy secondary to acute illness
Non-[place] myocardial injury in the settings of hypotension and atrial tachycardia
Atrial fibrillation with RVR new onset
Elevated pro CHF BNP
Severe MR on echo 02/11
Pulmonary hypertension PAP 52 mmHg
Hyponatremia secondary to loop diuretics
Other conditions:
Essential hypertension
Dyslipidemia.
Known cardiac murmur.
Chronic back pain.
Distant tobacco history quit in 80s
Plan:
Chest pain due to A-fib RVR today 02/18:
Twelve-lead EKG consistent with A-fib RVR
Lopressor 5 mg IV x 1 and continue with as needed
Toradol 15 mg IV x 1 and no more doses due to being on anticoagulant
Obtain stat chest x-ray, stat EKG, stat BMP, stat CPR, and stat troponin and trend.
Replete potassium and magnesium.
Remains on 2 L of oxygen
Discussed with pulmonary who agrees with current approach and feels no need for further testing such as CTA or other from pulmonary perspective.
Discussed with cardiology via [facility] (Dr Alexandru Schofield)-follow-up their recommendations
Currently on amiodarone 200 mg twice a day
Currently on Eliquis 5 mg twice a day
Acute hypoxic respiratory failure
Bilateral right greater than left infiltrates suggestive pneumonia versus pulmonary edema
Suspected sepsis with pulmonary source
Shock septic versus cardiogenic with hypotension requiring vasopressors
Preliminary blood culture with Streptococcus agalactiae /
Despite of aggressive treatment with antibiotics, IV diuresis respiratory status remains tenuous while patient on mid flow oxygen
Hemodynamics reasonably stabilized while off vasopressor transition to midodrine
Echocardiogram with preserved EF, although with concern for moderate to severe MR and at this point unexplained pulmonary hypertension (without evidence of significant pulmonary disease in the past)
She has migrating infiltrates that possibly consistent with pulmonary edema
Plan is to continue empiric antibiotics/ceftriaxone. Noted with rising leukocytosis status post corticosteroids
Steroids has been discontinued intravenously but she is on oral steroids. Leukocytosis trending down
Continue diuresis with Lasix increased to 80 mg twice a day with attempt to wean off oxygen
In discussion with cardiology and pulmonary services, could be reasonable to evaluate degree of MR which appears severe on TTE, although not required close with DYLAN and catheterization once respiratory status allows
Acute CHF preserved EF
Noted elevated cardiac markers including non-HI troponin elevation elevated pro CHF BNP at 1900.
Echocardiogram 02/11 with hyperdynamic LVEF at 70-75% with no regional wall motion abnormalities. Noted for moderate MR with a large left atrium, dilated and hypokinetic RV with pulmonary hypertension PA pressure 52 mmHg and moderate TR.
CT scan negative for pulmonary embolism.
Lower extremity Doppler negative for DVT
Possibly evaluation of MR as outlined above
Continue IV Lasix monitoring for worsening of hyponatremia. Dose increased to furosemide 80 mg twice a day
Atrial fibrillation with RVR, new onset
Initiated on amiodarone drip with transition to oral.
Back in sinus on 02/15
Preadmission metoprolol had been discontinued due to hypotension
Initiated on Eliquis
Toxic metabolic encephalopathy.
Neurologic exam with no focal findings
Mental status improves with improved oxygenation and hemodynamics.
Acute kidney injury.
Hypovolemic hyponatremia.
Metabolic acidosis.
Improved with IV fluids and vasopressors.
Nonoliguric.
Hypokalemia
Replete and trend
Hyperbilirubinemia with normal transaminases
Follow trend
Consider imaging if uptrending
Essential hypertension
Dyslipidemia.
Chronic lower back pain.
On tramadol and steroid taper as outpatient
If gram-positive bacteremia remains relevant with persistent back pain, consider imaging--> blood culture with Streptococcus agalactiae and after that all blood cultures since 02/13 negative so most likely a contaminant.
Time spent 52 minutes.
Anticipated Discharge: > 48 hours
Subjective/Interval History
-
Date of Service: February 18, 2025
Called by RN to see patient with chest pain. On my evaluation patient with chest pain radiated to the left shoulder and in atrial fibrillation with rates in the 130s. After medications patient feeling better.
Objective Data
-
Labs:
Laboratory Results
02/18/25
05:17
WBC 34.1 H
Hgb 10.1 L
Hct 30.2 L
Plt Count 355
Sodium 133 L
Potassium 3.4 L
Chloride 96 L
Carbon Dioxide 30
BUN 42 H
Creatinine 0.9
Glucose 99
Calcium 7.5 L
Vital Signs:
Vital Signs
Temp Pulse Resp BP Pulse Ox
98.1 F 117 18 100/65 95
02/18/25 07:13 02/18/25 07:13 02/18/25 07:13 02/18/25 07:13 02/18/25 07:13
I&O
02/17/25 02/18/25 02/19/25
06:59 06:59 06:59
Intake Total 1440 / 1440 1020 / 1020
Output Total 2099 / 2099
Balance -660 / -660 1020 / 1020
[2025-02-18] MEDS: TYLENOL 650 MG PO ×2 (08:47→13:57)
[2025-02-18] MEDS: KCL 40 MEQ PO (08:48)
[2025-02-18] MEDS: DELTASONE 30 MG PO (08:48)
[2025-02-18] MEDS: PROTONIX 40 MG PO (08:49)
[2025-02-18] MEDS: MAG-TAB SR 84 MG PO ×2 (08:49→20:23)
[2025-02-18] MEDS: COLCHICINE 0.3 MG PO ×2 (08:49→20:21)
[2025-02-18] MEDS: PACERONE 200 MG PO ×3 (08:49→23:18)
[2025-02-18] MEDS: ELIQUIS 5 MG PO ×2 (08:49→20:23)
[2025-02-18] MEDS: LASIX 80 MG IV (08:50)
[2025-02-18] MEDS: LIDOCAINE 4% PATCH 1 PATCH TOPICAL (08:51)
[2025-02-18 09:06] LABS: Absolute Neutrophils -Man Diff 24.5 10^3/uL (1.4-6.5); Anisocytosis 1+; Normal RBC Morphology No; Platelets Checked Yes
[2025-02-18 09:07] LABS: Hypochromasia 1+; Microcytosis 1+; Spherocytes 1+; Total Cells Counted 100
[2025-02-18] MEDS: TORADOL 15 MG IV (09:29)
[2025-02-18] MEDS: LOPRESSOR 5 MG IV (09:29)
--- NOTE | 2025-02-18 09:37 | PTCARENOTE ---
Pt c/o CP radiating down left arm and chest heaviness. Pt unable to give more information but states 'something doesn't feel right.' afib HR 130-145. EKG = afib RVR. BP 103/63 94% on 2L via NC. increased WOB and RR roughly 28-30. contacted
attending who reported to bedside. Lopressor, tordol. stat labs CXR. after IV Lopressor HR 98-110 afib. pt reports chest heaviness sensation has not changed. CXR now at bedside
[2025-02-18 10:26] LABS: C-Reactive Protein 69.00 mg/L (0.0-10.00)
[2025-02-18 10:36] LABS: Troponin I 0.095 ng/ml
--- NOTE | 2025-02-18 11:09 | W.PN.CARDCBS ---
Today's Communication / Plan
-
Continue diuresis
Ask mitral valve clip team/structural heart team to meet with patient on Wednesday, February 19.
Impression / Plan
-
Impression:
Bilateral pneumonia with clinical sepsis
Non-[place] related myocardial injury related to sepsis, initial troponin 0.733
Acute HF with preserved LVEF - proBNP 19,000
Atrial fibrillation with rapid ventricular response
Hepatitis with hyperbilirubinemia
Probable MELITA
Toxic metabolic encephalopathy
Respiratory failure on BiPAP
Atrial tachycardia
Severe mitral regurgitation
Moderate aortic regurgitation
Atypical chest pain possible pericarditis
Echo 02/11/2025: Mild LVH, hyperdynamic function, EF 70-75% or greater, dynamic LVOT gradient suggested but not demonstrated inclusively, MAC, severe MR, dilated left atrium, aortic sclerosis with moderate aortic regurgitation, dilated and
hypokinetic RV, pulmonary artery systolic pressure 52 mmHg with moderate MR and dilated right atrium
Plan:
Bilateral pneumonia with clinical sepsis
On IV antibiotics, ceftriaxone
She remains with high oxygen requirement.
HFpEF as well as severe MR
Diuresis with Lasix to 80 mg IV twice daily. Can also use Zaroxolyn as needed.
Creatinine stable at 0.9
Weight is down 18 pounds from admission if accurate and 4.5 pounds overnight
She has previously had a lengthy discussion with Dr. Raymond re mitral regurgitation.
Previously, she was holding off on making a decision and considering further evaluation either at [place] or at [facility].
She tells me this morning that she now wishes to have a more detailed discussion with the valve team during this hospital stay as she feels now she would like to have intervention on her valve here at [facility]
If she does pursue evaluation regarding her mitral valve she will need to be full code and get a cardiac cath.
In the meantime we will continue medical management focusing mostly on controlling volume.
Paroxysmal atrial fibrillation
Amiodarone was decreased to 200 mg twice daily on February 16, 2025
She had been maintaining sinus but is back in atrial fibrillation today with rates that are modestly rapid.
Will add Toprol-XL 12.5 mg p.o. BID with hold parameters.
At times she has been hypotensive/orthostatic.
Continue midodrine.
Deconditioning
She would likely benefit from PT
Atypical chest pain and presenting EKG with diffuse ST segment elevations felt to be pericarditis
Having some chest pain again this morning which occurred when atrial fibrillation with rapid ventricular rates replaced sinus rhythm.
Stat troponin this morning shows troponin values continue to fall (0.733, 0.608, 0.553, 0.667, 0.095)
Stat ECG today without acute ischemic changes
She is now on colchicine 0.3 mg twice daily
We had a long discussion regarding potential intervention on her mitral valve. She tells me that she is now much more amenable to having her valve addressed more definitively and having that done here at [facility]. She is interested in meeting
with the valve team for MitraClip here at [facility].
Total time spent today was 52 minutes in preparing to see the patient, seeing the patient and coordination of care. This included review of recent laboratory evaluations, cardiact testing, imaging studies, primary care rtecords, specialty
consultations, hospital records, as well as personally interviewing and examining the patient, which included discussion of their tests, review/ordering medications, and communicating with other healthcare professionals and also treatment planning
as well as counseling.
Progress Note - Health Information Internship
Subjective
Date of Service: February 18, 2025
She was having some chest discomfort earlier today only when she takes a deep breath. This is similar to the chest pain she had 2 days ago. Pain is very brief in duration.
Objective
Labs:
02/18/25 05:17
02/18/25 05:17
Labs
Hgb 10.1 g/dL (12.0-16.0) L 02/18/25 05:17
Hct 30.2 % (37.0-47.0) L 02/18/25 05:17
Plt Count 355 10^3/uL (130-400) 02/18/25 05:17
PT 15.1 Sec (11.4-14.6) H 02/11/25 18:03
INR 1.16 02/11/25 18:03
APTT 33.3 Sec (23.4-35.0) 02/11/25 18:03
Sodium 133 mmol/L (135-145) L 02/18/25 05:17
Potassium 3.4 mmol/L (3.5-5.1) L 02/18/25 05:17
BUN 42 mg/dl (7-17) H 02/18/25 05:17
Creatinine 0.9 mg/dL (0.6-1.0) 02/18/25 05:17
Glucose 99 mg/dl (70-99) 02/18/25 05:17
Troponins
02/18/25
09:54
Troponin I 0.095 H*
Vital Signs and I&O:
Vital Signs
Temp Pulse Resp BP Pulse Ox
98.1 F 101 16 100/62 98
02/18/25 07:13 02/18/25 08:12 02/18/25 08:12 02/18/25 08:49 02/18/25 08:12
Vital Signs
Temp Pulse Resp BP Pulse Ox
98.1 F 101 16 100/62 98
02/18/25 07:13 02/18/25 08:12 02/18/25 08:12 02/18/25 08:49 02/18/25 08:12
Intake & Output
02/16/25 02/17/25 02/18/25 02/19/25
06:59 06:59 06:59 06:59
Intake Total 1200 / 1200 1440 / 1440 1020 / 1020
Output Total 750 / 750 2100 / 2100
Balance 450 / 450 -660 / -660 1020 / 1020
Physical Exam
Physical Exam
Elderly woman resting in bed no acute distress
Regular rate and rhythm with normal S1 and S2, there is a grade 2/6 apical holosystolic murmur with no rubs.
Lungs are clear to auscultation bilaterally without wheezes rales or rhonchi
Extremities show +1 pretibial edema bilaterally
[2025-02-18 12:17] LABS: Glucose - Point of Care 126 mg/dl (70-99)
[2025-02-18] MEDS: STERILE WATER FOR INJECTION 20 ML IV (13:28)
[2025-02-18] MEDS: ROCEPHIN 2000 MG IV (13:29)
[2025-02-18] MEDS: TOPROL XL PO (13:48)
--- NOTE | 2025-02-18 13:52 | W.PN.UPDATE ---
Update Note
Progress Note Update
Blood pressure is down a bit with rapid rates in atrial fibrillation.
She also may be slightly over diuresed.
Stopping Lasix for now and will need to reassess diuretic dosing
Increasing amiodarone to 200 mg 3 times daily
Hold/give parameters on Toprol-XL based on heart rate and blood pressure
--- NOTE | 2025-02-18 13:55 | PTCARENOTE ---
pt BP 84/50 manually, attending and cardiology notified. Pt c/o dizziness, and difficulty with deep inspiration, although admitted feeling of chest heaviness has improved. HR 120's afib. Per cardiology hold toprolol until BP >90 systolic
[2025-02-18] MEDS: NSS 250 IV (13:57)
[2025-02-18] MEDS: TOPROL XL 12.5 MG PO ×2 (14:30→20:20)
[2025-02-18 16:40] LABS: Troponin I 0.073 ng/ml
[2025-02-18 17:11] LABS: Glucose - Point of Care 150 mg/dl (70-99)
[2025-02-18] MEDS: NOVOLOG FLEXPEN-LOW RESISTANCE 1 UNITS SC (18:05)
--- NOTE | 2025-02-18 18:25 | W.PN.PUL3 ---
Today's Communication / Plan
-
- DC IV ceftriaxone
- Start oral Omnicef 300 mg p.o. twice daily, target antimicrobial therapy duration 10 to 14 days
Assessment
-
79-year-old female with history of hyperlipidemia, murmur followed by cardiology at [place], presents with increased chest pain/shoulder pain, back pain, shortness of breath and mental status changes. Found to be in hypoxic respiratory failure
upon arrival to ED, placed on BiPAP. CT chest ruled out PE, confirmed bilateral patchy infiltrates. Patient given IV antibiotics for presumed pneumonia. We are asked to help from critical care standpoint
Conditions present prior to admission
Hypercholesterolemia
History of atrial tachycardia
Prior known murmur
Distant tobacco history, quit
Overnight, patient had increased dyspnea around mid night, responded to PRn Albuterol and 1 dose of Morphine
Assessment and plan:
#1. Acute hypoxic respiratory failure with bilateral pneumonia (R>L) with septic shock
- Streptococcus bacteremia noted on blood cultures, repeat cultures negative
- O2 requirement continues to decrease. Down to 2 L on nasal cannula now, chest x-ray improving
- Has been on IV ceftriaxone, repeat cultures have been negative, switch to oral Omnicef, considering bilateral pneumonia and bacteremia, target 10 to 14 days of antimicrobial therapy and total
- Prednisone for 3 more days
- Off BIPAP now, use as needed
- Patient is off Salvatore-Synephrine now
- Lasix currently being held per cardiology service due to soft blood pressure
#2. Severe MR with suspect Pulmonary edema
- Has been on Lasix IV, currently held due to soft blood pressure
- Persistent right upper lobe infiltrate, suspect might be related to underlying mitral regurgitation jet
#3. Pulmonary Hypertension
- Echo suggestive of elevated pulmonary artery systolic pressure of 52 with dilated and hypokinetic RV with moderate TR
- Continue supplemental O2 to keep saturations above 90%
- Unclear etiology of pulmonary hypertension
- Will need pulmonary function testing, sleep study and possibly VQ scan, can pursue these as outpatient
- RV dilation likely driving proBNP level up, will benefit from right heart catheterization eventually
#4. Atrial fibrillation with rapid ventricular rate
- 02/18, patient had an episode of chest pain today when she developed rapid ventricular rate of 130-145 which was radiating to left arm. She responded well to Lopressor and rate has been normal since.
- Cardiology service on case, patient being considered for possible intervention for underlying severe mitral regurgitation
#5. Elevated troponin
- [place] to be related to pneumonia with septic shock and respiratory failure
- Cardiology service on case
DVT prophylaxis started on Eliquis, GI prophylaxis p.o. pantoprazole.
'02/13/2025, Goals of care discussion: I met with patient earlier in the day and shared my concern regarding rising oxygen requirement and having to be started on high flow nasal cannula. I discussed that if oxygen requirement rises any further,
options are very limited. I briefly discussed about intubation and mechanical ventilation. Patient really confirmed her CODE STATUS choice of DNR/DNI. Patient's brother arrived in few hours and I met with patient and her brother again at bedside.
Went over patient's current clinical course and current tenuous respiratory status. We discussed about DNR/DNI versus pursuing intubation without opting to receive resuscitation if needed. Patient overall felt marginally better and has opted to
stay with the current CODE STATUS of DNR/DNI.'
Total time spent on this consultation/encounter __40__ minutes which includes review of history, physical exam, medications, laboratory data, personal review of imaging, extensive review of outpatient records, discussion with care team and
respiratory therapy.
Data
CT Chest 01/2025: Bilateral pneumonia, right greater than left.
Tiny bilateral pleural effusions
No pulmonary embolus. No aortic dissection.
Large hiatal hernia.
ECHO 01/2025: 1. Mild concentric left ventricular hypertrophy with hyperdynamic LV systolic
function, EF 70-75% or greater. Dynamic left ventricular outflow tract
gradient not excluded
2. Thickened mitral leaflets, mitral annular calcification, severe mitral
regurgitation and dilated left atrium
3. Aortic sclerosis with moderate aortic regurgitation
4. Dilated and hypokinetic RV, pulmonary artery systolic pressure 52 mmHg,
moderate TR and dilated right atrium
5. The ascending aorta is borderline dilated
Subjective Dataa
Subjective Data
Date of Service:
Date of Service: February 14, 2025
Subjective Data
-
Date of Service:
Date of Service: February 18, 2025
Subjective:
Patient comfortably sitting in bed in no acute distress. Saturating mid 90s on 2 L nasal cannula.
Review of Systems
Genitourinary: Other (All 14 systems reviewed and negative except as stated above in the history of present illness.)
Objective Data
Data Reviewed
Vital Signs / I&O / Oxygen:
Vital Signs
Temp Pulse Resp BP Pulse Ox
98.1 F 98 22 102/58 95
02/18/25 15:36 02/18/25 16:40 02/18/25 16:40 02/18/25 16:40 02/18/25 15:36
Intake and Output
02/17/25 02/18/25 02/19/25
06:59 06:59 06:59
Intake Total 1440 / 1440 1020 / 1020 480 / 480
Output Total 2100 / 2100
Balance -660 / -660 1020 / 1020 480 / 480
SaO2 95
Nasal Cannula flow liters per 2
minute
Physical Exam
HEENT: Normocephalic
Cardiovascular: S1-S2, Murmur (Pansystolic) and Peripheral Edema (Nearly resolved)
Respiratory: Crackles
GI: Soft and Non Distended
Neurology: Awake and Alert
Skin: Warm
Labs/Micro/Reports
Lab Data
02/18/25 05:17
02/18/25 05:17
Laboratory Results
02/18/25
09:11
pH Cancelled
pCO2 Cancelled
pO2 Cancelled
HCO3 Cancelled
O2 Delivery Level Cancelled
Microbiology
02/13/25 16:30 Blood/Venous Blood Culture - Final
No Growth - Final Report
02/13/25 16:30 Blood/Venous Blood Culture - Final
No Growth - Final Report
02/11/25 18:03 Blood/Venous Blood Culture - Final
No Growth - Final Report
--- NOTE | 2025-02-18 18:25 | PTCARENOTE ---
contacting attending for PRN supp. addition of bowel meds yesterday unsuccessful
[2025-02-18 22:36] LABS: Glucose - Point of Care 132 mg/dl (70-99)
[2025-02-18] MEDS: MELATONIN 5 MG PO (22:42)
[2025-02-18] MEDS: LIPITOR 10 MG PO (22:42)
[2025-02-18 23:38] LABS: Troponin I 0.061 ng/ml
[2025-02-19] VITALS (9 sets, daily range): BP systolic 97–126; BP diastolic 65–71; PULSE 100; O2SAT 92
[2025-02-19] MEDS: TYLENOL 650 MG PO ×2 (02:25→12:51)
[2025-02-19] MEDS: VENTOLIN NEBULES 2.5 MG INH (03:12)
[2025-02-19 05:56] LABS: Hematocrit 28.7 % (37.0-47.0); Hemoglobin 9.9 g/dL (12.0-16.0); Mean Corp Hgb Conc. 34.5 g/dL (33.0-37.0); Mean Corpuscular Volume 85.9 fL (81.0-99.0); Platelet Count 371 10^3/uL (130-400); Red Cell Dist. Width 16.0 % (11.5-14.5)
[2025-02-19 06:05] LABS: Blood Urea Nitrogen 41 mg/dl (7-17); Calcium 7.9 mg/dl (8.4-10.2); Carbon Dioxide 29 mmol/L (22-30); Chloride 97 mmol/L (98-107); Estimated Creatinine Clearance 55 ml/min; Glucose 109 mg/dl (70-99); Magnesium 1.9 mg/dl (1.6-2.3); Potassium 3.7 mmol/L (3.5-5.1); Sodium 132 mmol/L (135-145); eGFR > 60.00
[2025-02-19] MEDS: MORPHINE SULFATE 1 MG IV (06:08)
[2025-02-19 06:13] LABS: Troponin I 0.060 ng/ml
[2025-02-19 06:52] LABS: Absolute Neutrophils -Man Diff 31.9 10^3/uL (1.4-6.5)
[2025-02-19 06:53] LABS: Normal RBC Morphology Yes; Platelets Checked Yes; Total Cells Counted 100
[2025-02-19 07:22] LABS: Glucose - Point of Care 100 mg/dl (70-99)
[2025-02-19] MEDS: DUONEB 3 ML INH (07:47)
[2025-02-19] MEDS: SODIUM CHLORIDE 3% FOR INHALATION 1 VIAL INH (07:48)
[2025-02-19] MEDS: DELTASONE 30 MG PO (07:59)
[2025-02-19] MEDS: COLCHICINE 0.3 MG PO ×2 (07:59→21:02)
[2025-02-19] MEDS: MAG-TAB SR 84 MG PO ×2 (08:00→21:01)
[2025-02-19] MEDS: OMNICEF 300 MG PO ×2 (08:00→21:01)
[2025-02-19] MEDS: PACERONE 200 MG PO ×3 (08:01→22:35)
[2025-02-19] MEDS: ELIQUIS 5 MG PO ×2 (08:01→21:02)
[2025-02-19] MEDS: PROTONIX 40 MG PO (08:01)
[2025-02-19] MEDS: TOPROL XL 12.5 MG PO ×2 (08:03→20:45)
[2025-02-19] MEDS: LIDOCAINE 4% PATCH 1 PATCH TOPICAL (08:04)
[2025-02-19] MEDS: NOVOLOG FLEXPEN-LOW RESISTANCE SC ×2 (09:27→17:00)
[2025-02-19] MEDS: STERILE WATER FOR INJECTION IV (11:58)
[2025-02-19 12:13] LABS: Glucose - Point of Care 153 mg/dl (70-99)
[2025-02-19] MEDS: NOVOLOG FLEXPEN-LOW RESISTANCE 1 UNITS SC (12:59)
[2025-02-19] MEDS: VISBIOME 2 CAP PO (15:44)
--- NOTE | 2025-02-19 15:55 | W.PN.HOSP.TC ---
Today's Communication/Plan
-
Hold Lasix.
Midodrine
Oral antibiotics
Amiodarone, metoprolol
Assessment / Plan
Assessment / Plan
Impression
Acute hypoxic respiratory failure
Bilateral pneumonia.
Sepsis
Septic shock requiring vasopressors.
Gram-positive bacteremia
Acute CHF preserved EF
Acute kidney injury
Hypovolemic hyponatremia
Metabolic acidosis
Hyperbilirubinemia
Toxic metabolic encephalopathy secondary to acute illness
Non-[place] myocardial injury in the settings of hypotension and atrial tachycardia
Atrial fibrillation with RVR new onset
Elevated pro CHF BNP
Severe MR on echo 02/11
Pulmonary hypertension PAP 52 mmHg
Hyponatremia secondary to loop diuretics
Other conditions:
Essential hypertension
Dyslipidemia.
Known cardiac murmur.
Chronic back pain.
Distant tobacco history quit in
Plan:
Acute hypoxic respiratory failure
Bilateral right greater than left infiltrates suggestive pneumonia versus pulmonary edema
Suspected sepsis with pulmonary source
Shock septic versus cardiogenic with hypotension requiring vasopressors
Preliminary blood culture with Streptococcus agalactiae /
Despite of aggressive treatment with antibiotics, IV diuresis respiratory status remains tenuous while patient on mid flow oxygen
Hemodynamics reasonably stabilized while off vasopressor transition to midodrine
Echocardiogram with preserved EF, although with concern for moderate to severe MR and at this point unexplained pulmonary hypertension (without evidence of significant pulmonary disease in the past)
She has migrating infiltrates that possibly consistent with pulmonary edema
Respiratory status improved and patient is currently down to 2 L of nasal cannula oxygen at rest
Plan is to continue empiric antibiotics/ceftriaxone, transition to Omnicef to complete 10 to 14 days of treatment
Continue taper corticosteroids transition to oral prednisone
Acute CHF preserved EF
Noted elevated cardiac markers including non-AL troponin elevation elevated pro CHF BNP at 1900.
Echocardiogram 02/11 with hyperdynamic LVEF at 70-75% with no regional wall motion abnormalities. Noted for moderate MR with a large left atrium, dilated and hypokinetic RV with pulmonary hypertension PA pressure 52 mmHg and moderate TR.
CT scan negative for pulmonary embolism.
Lower extremity Doppler negative for DVT
Responded to diuresis. Lasix held on 02/18 given soft BP
Continue midodrine
Atrial fibrillation with RVR, new onset
Initiated on amiodarone drip with transition to oral.
Amiodarone dose increased to 200 mg 3 times daily
Continue metoprolol 12.5 mg twice daily
Initiated on Eliquis
Intermittent chest pain, sharp and reproducible
ECG with no evidence of ischemia
Troponin remains flat
Follow-up chest x-ray with no changes and showed bilateral opacification which slightly improved with likely differential of asymmetric pulmonary edema versus pneumonia
Toxic metabolic encephalopathy.
Neurologic exam with no focal findings
Mental status improves with improved oxygenation and hemodynamics.
Acute kidney injury.
Hypovolemic hyponatremia.
Metabolic acidosis.
Improved with IV fluids and vasopressors.
Nonoliguric.
Hypokalemia
Replete and trend
Hyperbilirubinemia with normal transaminases
Follow trend
Consider imaging if uptrending
Essential hypertension
Dyslipidemia.
Chronic lower back pain.
On tramadol and steroid taper as outpatient
If gram-positive bacteremia remains relevant with persistent back pain, consider imaging--> blood culture with Streptococcus agalactiae and after that all blood cultures since 02/13 negative so most likely a contaminant.
Time spent 52 minutes.
Anticipated Discharge: 24 - 48 hours
Subjective/Interval History
-
Date of Service: February 19, 2025
Objective Data
-
Labs:
Laboratory Results
02/19/25 02/19/25
05:26 05:27
WBC 34.7 H
Hgb 9.9 L
Hct 28.7 L
Plt Count 371
Sodium 132 L
Potassium 3.7
Chloride 97 L
Carbon Dioxide 29
BUN 41 H
Creatinine 0.9
Glucose 109 H
Calcium 7.9 L
Vital Signs:
Vital Signs
Temp Pulse Resp BP Pulse Ox
98.2 F 89 16 108/67 95
02/19/25 15:05 02/19/25 15:45 02/19/25 15:05 02/19/25 15:45 02/19/25 15:05
I&O
02/18/25 02/19/25 02/20/25
06:59 06:59 06:59
Intake Total 1020 / 1020 960 / 960
Balance 1020 / 1020 960 / 960
Physical Exam
-
General: Well Developed and No Apparent Distress
HEENT: Normocephalic, Atraumatic and Moist Mucous Membranes
Respiratory: Rales
Cardiac: Regular Rhythm, S1/S2 and Murmur (Systolic); Negative Rub or Gallop
GI: Soft, Nontender, Nondistended and Normal Bowel Sounds; Negative Organomegaly
Rectal: Deferred by Provider
Musculoskeletal: No Clubbing, No Cyanosis and No Edema
Skin: Negative Rash
Neuro: Nonfocal/Grossly Intact
[2025-02-19 16:59] LABS: Glucose - Point of Care 144 mg/dl (70-99)
--- NOTE | 2025-02-19 17:26 | W.PN.CARDCBS ---
Addendum entered and electronically signed by Noe Leon DO 02/19/25 19:19:
I saw and examined the patient.
The Driver Starting Gate's note was reviewed and I agree with the note.
Comment:
Plan:
Continue Amiodarone 200 mg TID and Toprol for rate control
Cont Eliquis
Diuretics held for hypotension and bp improving, likely resume diuretics tomorrow.
Cont midodrine for bp support.
Reviewed MitraClip with pt and family at bedside.
Reviewed with structural IC.
Potential DYLAN this admit +/-cath prior to d/c
Cont pulm toilet for PNA
Reviewed with primary service.
Original Note:
Today's Communication / Plan
-
Continue amiodarone 200 mg 3 times daily and Toprol 12.5 mg twice a day with hold parameters for rate control
Continue Eliquis 5 mg twice a day
Diuretics currently on hold due to ongoing hypotension
Continue midodrine
Ongoing discussion with structural heart team regarding mitral clip. If patient agreeable could consider DYLAN this admission to see if she is a candidate
Impression / Plan
-
Infrastructure Analyst: Previously seen by Dr. [place] L[place]os, [place] chief medical director
Impression:
Presented 02/11/2025 with dyspnea, left shoulder pain, altered mental status
Bilateral pneumonia with clinical sepsis with bacteremia Streptococcus agalactiae 1/2
Non-[place] related myocardial injury related to sepsis, peak troponin 0.733 on admission
Acute HF with preserved LVEF - proBNP 19,000
Atrial fibrillation with rapid ventricular response
Hepatitis with hyperbilirubinemia
Probable MELITA
Toxic metabolic encephalopathy
Respiratory failure on BiPAP
Atrial tachycardia
Severe mitral regurgitation
Moderate aortic regurgitation
Atypical chest pain possible pericarditis
Echo 02/11/2025: Mild LVH, hyperdynamic function, EF 70-75% or greater, dynamic LVOT gradient suggested but not demonstrated inclusively, MAC, severe MR, dilated left atrium, aortic sclerosis with moderate aortic regurgitation, dilated and
hypokinetic RV, pulmonary artery systolic pressure 52 mmHg with moderate MR and dilated right atrium
Plan:
Bilateral pneumonia with clinical sepsis
On IV antibiotics, ceftriaxone ongoing to complete 10 to 14 days of treatment
Respiratory status continues to clinically improve slowly, she remains with high oxygen requirement., Currently on 3 L O2
Continue to wean steroids
HFpEF as well as severe MR
Weight is down 17 pounds from admission if accurate and 4.5 pounds overnight
Patient did undergo aggressive diuresis with Lasix to 80 mg IV twice daily. Developed hypotension and Lasix currently on hold
Creatinine stable at 0.9
She has previously had a lengthy discussion with Dr. Raymond re mitral regurgitation.
She reports she now wishes to have a more detailed discussion with the valve team during this hospital stay as she feels now she would like to have intervention on her valve here at [facility]
Will have structural heart team evaluate patient. Would need DYLAN and catheterization.
If she does pursue evaluation regarding her mitral valve she will need to be full code and get a cardiac cath.
In the meantime we will continue medical management focusing mostly on controlling volume.
Paroxysmal atrial fibrillation
Patient developed atrial fibrillation with rapid ventricular response on 02/18/2025 with up titration of amiodarone 200 mg 3 times daily.
Toprol-XL 12.5 mg p.o. BID added with hold parameters.
Heart rates have improved but still not optimal
At times she has been hypotensive/orthostatic.
Continue midodrine.
Deconditioning
She would likely benefit from PT
Atypical chest pain and presenting EKG with diffuse ST segment elevations felt to be pericarditis
Still having occasional episodes of chest discomfort typically associated with atrial fibrillation with rapid ventricular rates. Continue rate control. May need ischemic evaluation pending workup for mitral clip
Stat troponin this morning shows troponin values continue to fall (0.733, 0.608, 0.553, 0.667, 0.095)
Stat ECG today without acute ischemic changes
She is now on colchicine 0.3 mg twice daily
Progress Note - Infrastructure Analyst
Subjective
Date of Service: February 19, 2025
Objective
Labs:
02/19/25 05:27
02/19/25 05:26
Labs
Hgb 9.9 g/dL (12.0-16.0) L 02/19/25 05:27
Hct 28.7 % (37.0-47.0) L 02/19/25 05:27
Plt Count 371 10^3/uL (130-400) 02/19/25 05:27
PT 15.1 Sec (11.4-14.6) H 02/11/25 18:03
INR 1.16 02/11/25 18:03
APTT 33.3 Sec (23.4-35.0) 02/11/25 18:03
Sodium 132 mmol/L (135-145) L 02/19/25 05:26
Potassium 3.7 mmol/L (3.5-5.1) 02/19/25 05:26
BUN 41 mg/dl (7-17) H 02/19/25 05:26
Creatinine 0.9 mg/dL (0.6-1.0) 02/19/25 05:26
Glucose 109 mg/dl (70-99) H 02/19/25 05:26
Troponins
02/18/25 02/18/25 02/18/25
09:54 15:52 22:42
Troponin I 0.095 H* 0.073 H* 0.061 H*
02/19/25
05:27
Troponin I 0.060 H*
Vital Signs and I&O:
Vital Signs
Temp Pulse Resp BP Pulse Ox
98.2 F 89 16 108/67 95
02/19/25 15:05 02/19/25 15:45 02/19/25 15:05 02/19/25 15:45 02/19/25 15:05
Vital Signs
Temp Pulse Resp BP Pulse Ox
98.2 F 89 16 108/67 95
02/19/25 15:05 02/19/25 15:45 02/19/25 15:05 02/19/25 15:45 02/19/25 15:05
Intake & Output
02/17/25 02/18/25 02/19/25 02/20/25
06:59 06:59 06:59 06:59
Intake Total 1440 / 1440 1020 / 1020 960 / 960
Output Total 2099 / 2099
Balance -660 / -660 1020 / 1020 960 / 960
[2025-02-19] MEDS: SODIUM CHLORIDE 3% FOR INHALATION INH (19:58)
[2025-02-19] MEDS: DUONEB INH (19:58)
[2025-02-19 22:02] LABS: Glucose - Point of Care 140 mg/dl (70-99)
[2025-02-19] MEDS: MELATONIN 5 MG PO (22:36)
[2025-02-19] MEDS: LIPITOR 10 MG PO (22:36)
--- NOTE | 2025-02-20 02:34 | DOWNTIME ---
There was a [employer] Downtime on 02/20/2025 from 0100 to 02/20/2025 at 0220. Downtime documentation of patient's care, including medication administrations, has been reconciled in the electronic record per guidelines. Refer to the
patient's paper chart under the miscellaneous tab to see printed paper medication records and downtime forms.
[2025-02-20 03:26] VITALS: BP 110/72
[2025-02-20 07:09] LABS: Glucose - Point of Care 127 mg/dl (70-99)
[2025-02-20 07:10] VITALS: BP 103/70
[2025-02-20] MEDS: SODIUM CHLORIDE 3% FOR INHALATION 1 VIAL INH (07:46)
[2025-02-20] MEDS: DUONEB 3 ML INH (07:46)
[2025-02-20] MEDS: NOVOLOG FLEXPEN-LOW RESISTANCE SC ×3 (08:45→17:02)
[2025-02-20] MEDS: ELIQUIS 5 MG PO ×2 (08:52→20:37)
[2025-02-20] MEDS: PROTONIX 40 MG PO (08:52)
[2025-02-20] MEDS: TOPROL XL 12.5 MG PO ×2 (08:52→20:37)
[2025-02-20] MEDS: OMNICEF 300 MG PO ×2 (08:52→20:37)
[2025-02-20] MEDS: MAG-TAB SR 84 MG PO ×2 (08:52→20:37)
[2025-02-20] MEDS: DELTASONE 30 MG PO (08:53)
[2025-02-20] MEDS: VISBIOME 2 CAP PO (08:53)
[2025-02-20] MEDS: PACERONE 200 MG PO ×3 (08:53→22:25)
[2025-02-20] MEDS: COLCHICINE 0.3 MG PO ×2 (08:53→20:37)
[2025-02-20] MEDS: LIDOCAINE 4% PATCH 1 PATCH TOPICAL (08:54)
--- NOTE | 2025-02-20 10:07 | W.PN.CARDCBS ---
Today's Communication / Plan
-
Resume lasix at 40 mg IV daily
Cr remains stable.
Discussed MVClip and pt is agreeable to work up at this time. Discussed DYLAN next 24-48 hrs
Tried to call brother but he did not answer the phone.
If she does pursue evaluation regarding her mitral valve she will need to be full code and have cardiac cath.
Paroxysmal atrial fibrillation
Patient developed atrial fibrillation with rapid ventricular response on 02/18/2025 with up titration of amiodarone 200 mg 3 times daily.
Toprol-XL 12.5 mg p.o. BID added with hold parameters. Heart rates have improved
Impression / Plan
-
.
Health Program Specialist: Previously seen by Dr. New Landeros, [facility] medical review specialist
Impression:
Presented 02/11/2025 with dyspnea, left shoulder pain, altered mental status
Bilateral pneumonia with clinical sepsis with bacteremia Streptococcus agalactiae 1/2
Non-[place] related myocardial injury related to sepsis, peak troponin 0.733 on admission
Acute HF with preserved LVEF - proBNP 19,000
Atrial fibrillation with rapid ventricular response
Hepatitis with hyperbilirubinemia
Probable MELITA
Toxic metabolic encephalopathy
Respiratory failure on BiPAP
Atrial tachycardia
Severe mitral regurgitation
Moderate aortic regurgitation
Atypical chest pain possible pericarditis
Echo 02/11/2025: Mild LVH, hyperdynamic function, EF 70-75% or greater, dynamic LVOT gradient suggested but not demonstrated inclusively, MAC, severe MR, dilated left atrium, aortic sclerosis with moderate aortic regurgitation, dilated and
hypokinetic RV, pulmonary artery systolic pressure 52 mmHg with moderate MR and dilated right atrium
Plan:
Bilateral pneumonia with clinical sepsis
IV antibiotics as per primary service, Ceftriaxone ongoing to complete 10 to 14 days of treatment
Respiratory status continues to clinically improve slowly, remains on 3 L O2
Continue to wean steroids as per primary service
HFpEF as well as severe MR
Weight is down over 15 pounds from admission if accurate
Patient did undergo aggressive diuresis with Lasix to 80 mg IV twice daily and developed hypotension and Lasix held.
Resume lasix at 40 mg IV daily
Cr remains stable.
Discussed MVClip and pt is agreeable to work up at this time. Discussed DYLAN next 24-48 hrs
Tried to call brother but he did not answer the phone.
If she does pursue evaluation regarding her mitral valve she will need to be full code and have cardiac cath.
Paroxysmal atrial fibrillation
Patient developed atrial fibrillation with rapid ventricular response on 02/18/2025 with up titration of amiodarone 200 mg 3 times daily.
Toprol-XL 12.5 mg p.o. BID added with hold parameters. Heart rates have improved
Continue midodrine for bp support
Would benefit from PT
Atypical chest pain and presenting EKG with diffuse ST segment elevations felt to be pericarditis.
Episodes of chest discomfort typically associated with atrial fibrillation with rapid ventricular rates. Continue rate control. May need ischemic evaluation pending workup for mitral clip
Troponins continue to fall. (0.733, 0.608, 0.553, 0.667, 0.095)
EKG without ischemic changes
Remains on colchicine 0.3 mg twice daily
Progress Note - Health Program Specialist
Subjective
Date of Service: February 20, 2025
pt seen and examined and denies cp.
Objective
Labs:
02/19/25 05:27
02/19/25 05:26
Labs
Hgb 9.9 g/dL (12.0-16.0) L 02/19/25 05:27
Hct 28.7 % (37.0-47.0) L 02/19/25 05:27
Plt Count 371 10^3/uL (130-400) 02/19/25 05:27
PT 15.1 Sec (11.4-14.6) H 02/11/25 18:03
INR 1.16 02/11/25 18:03
APTT 33.3 Sec (23.4-35.0) 02/11/25 18:03
Sodium 132 mmol/L (135-145) L 02/19/25 05:26
Potassium 3.7 mmol/L (3.5-5.1) 02/19/25 05:26
BUN 41 mg/dl (7-17) H 02/19/25 05:26
Creatinine 0.9 mg/dL (0.6-1.0) 02/19/25 05:26
Glucose 109 mg/dl (70-99) H 02/19/25 05:26
Troponins
02/18/25 02/18/25 02/18/25
09:54 15:52 22:42
Troponin I 0.095 H* 0.073 H* 0.061 H*
02/19/25
05:27
Troponin I 0.060 H*
Vital Signs and I&O:
Vital Signs
Temp Pulse Resp BP Pulse Ox
98.2 F 102 16 103/70 96
02/20/25 07:10 02/20/25 07:47 02/20/25 07:47 02/20/25 07:10 02/20/25 07:47
Vital Signs
Temp Pulse Resp BP Pulse Ox
98.2 F 102 16 103/70 96
02/20/25 07:10 02/20/25 07:47 02/20/25 07:47 02/20/25 07:10 02/20/25 07:47
Intake & Output
02/18/25 02/19/25 02/20/25 02/21/25
06:59 06:59 06:59 06:59
Intake Total 1020 / 1020 960 / 960 1140 / 1140
Output Total 300 / 300
Balance 1020 / 1020 960 / 960 840 / 840
Physical Exam
Physical Exam
General: No acute distress, awake and alert
Neck: Negative JVD
Heart: Irregularly irregular, Negative S3 positive S1/S2, Negative S4, No murmur
Lungs: CTA b/l, negative wheezes/rales/rhonchi
Abd: Positive BS, NT/ND, neg rebound/rigidity/guarding
Ext: Negative cyanosis/clubbing/edema
Neuro: nonfocal
[2025-02-20 11:05] VITALS: BP 100/64
[2025-02-20 11:55] LABS: Glucose - Point of Care 160 mg/dl (70-99)
[2025-02-20] MEDS: STERILE WATER FOR INJECTION IV (11:57)
[2025-02-20] MEDS: LASIX 40 MG IV (12:22)
--- NOTE | 2025-02-20 14:52 | CM ---
Patient seen at bedside on 2 [address]. Patient is now discussing possible procedure and would like to go to [facility] when medically appropriate. Patient comfortable when seen today. CM will continue to follow for discharge planning needs.
Plan; pending medical treatment needs; SNF at [facility] if bed available.
--- NOTE | 2025-02-20 15:02 | PTCARENOTE ---
DYLAN rescheduled for tomorrow morning. Pt feels tired today and not interested in doing much. OOB to bedside commode w/ assistance. OOB to chair but only for 30 min. Remains in Afib w/ rate 110-130. 3L midflow oxygen. Lasix restarted - soft BPs
but ok to get per cards.
[2025-02-20 15:21] VITALS: BP 104/64
--- NOTE | 2025-02-20 16:59 | W.PN.HOSP.TC ---
Today's Communication/Plan
-
Resume diuresis and follw for recurrent hypotension and with renal function.
Plan is to start evaluation for MV procedure including DYLAN-cath in 24 48 hours permitting respiratory status
Assessment / Plan
Assessment / Plan
Impression
Acute hypoxic respiratory failure
Bilateral pneumonia.
Sepsis
Septic shock requiring vasopressors.
Gram-positive bacteremia
Acute CHF preserved EF
Acute kidney injury
Hypovolemic hyponatremia
Metabolic acidosis
Hyperbilirubinemia
Toxic metabolic encephalopathy secondary to acute illness
Non-[place] myocardial injury in the settings of hypotension and atrial tachycardia
Atrial fibrillation with RVR new onset
Elevated pro CHF BNP
Severe MR on echo 02/11
Pulmonary hypertension PAP 52 mmHg
Hyponatremia secondary to loop diuretics
Other conditions:
Essential hypertension
Dyslipidemia.
Known cardiac murmur.
Chronic back pain.
Distant tobacco history quit in
Plan:
Acute hypoxic respiratory failure
Bilateral right greater than left infiltrates suggestive pneumonia versus pulmonary edema
Suspected sepsis with pulmonary source
Shock septic versus cardiogenic with hypotension requiring vasopressors
Preliminary blood culture with Streptococcus agalactiae /
Despite of aggressive treatment with antibiotics, IV diuresis respiratory status remains tenuous while patient on mid flow oxygen
Hemodynamics reasonably stabilized while off vasopressor transition to midodrine
Echocardiogram with preserved EF, although with concern for moderate to severe MR and at this point unexplained pulmonary hypertension (without evidence of significant pulmonary disease in the past)
She has migrating infiltrates that possibly consistent with pulmonary edema
Respiratory status improved and patient is currently down to 2 L of nasal cannula oxygen at rest
Plan is to continue empiric antibiotics/ceftriaxone, transition to Omnicef to complete 10 to 14 days of treatment
Continue taper corticosteroids transition to oral prednisone
Acute CHF preserved EF
Noted elevated cardiac markers including non-[place] troponin elevation elevated pro CHF BNP at 1900.
Echocardiogram 02/11 with hyperdynamic LVEF at 70-75% with no regional wall motion abnormalities. Noted for moderate MR with a large left atrium, dilated and hypokinetic RV with pulmonary hypertension PA pressure 52 mmHg and moderate TR.
CT scan negative for pulmonary embolism.
Lower extremity Doppler negative for DVT
Responded to diuresis. Lasix held on 02/18 given soft BP
Continue midodrine
Atrial fibrillation with RVR, new onset
Initiated on amiodarone drip with transition to oral.
Amiodarone dose increased to 200 mg 3 times daily
Continue metoprolol 12.5 mg twice daily
Initiated on Eliquis
Intermittent chest pain, sharp and reproducible
ECG with no evidence of ischemia
Troponin remains flat
Follow-up chest x-ray with no changes and showed bilateral opacification which slightly improved with likely differential of asymmetric pulmonary edema versus pneumonia
Toxic metabolic encephalopathy.
Neurologic exam with no focal findings
Mental status improves with improved oxygenation and hemodynamics.
Acute kidney injury.
Hypovolemic hyponatremia.
Metabolic acidosis.
Improved with IV fluids and vasopressors.
Nonoliguric.
Hypokalemia
Replete and trend
Hyperbilirubinemia with normal transaminases
Follow trend
Consider imaging if uptrending
Essential hypertension
Dyslipidemia.
Chronic lower back pain.
On tramadol and steroid taper as outpatient
If gram-positive bacteremia remains relevant with persistent back pain, consider imaging--> blood culture with Streptococcus agalactiae and after that all blood cultures since 02/13 negative so most likely a contaminant.
Time spent 52 minutes.
Anticipated Discharge: > 48 hours
Subjective/Interval History
-
Date of Service: February 20, 2025
Objective Data
-
Vital Signs:
Vital Signs
Temp Pulse Resp BP Pulse Ox
98.3 F 116 18 104/64 96
02/20/25 15:21 02/20/25 15:21 02/20/25 15:21 02/20/25 15:21 02/20/25 15:21
I&O
02/19/25 02/20/25 02/21/25
06:59 06:59 06:59
Intake Total 960 / 960 1140 / 1140
Output Total 300 / 300
Balance 960 / 960 840 / 840
Physical Exam
-
General: Well Developed and No Apparent Distress
HEENT: Normocephalic, Atraumatic and Moist Mucous Membranes
Respiratory: Rales
Cardiac: Regular Rhythm, S1/S2 and Murmur (Systolic); Negative Rub or Gallop
GI: Soft, Nontender, Nondistended and Normal Bowel Sounds; Negative Organomegaly
Rectal: Deferred by Provider
Musculoskeletal: No Clubbing, No Cyanosis and No Edema
Skin: Negative Rash
Neuro: Nonfocal/Grossly Intact
[2025-02-20 17:02] LABS: Glucose - Point of Care 135 mg/dl (70-99)
[2025-02-20] MEDS: TYLENOL 650 MG PO (17:06)
[2025-02-20 19:39] VITALS: BP 98/61
[2025-02-20] MEDS: MELATONIN 5 MG PO (22:25)
[2025-02-20] MEDS: LIPITOR 10 MG PO (22:25)
[2025-02-20 23:03] VITALS: BP 109/65
[2025-02-21] VITALS (7 sets, daily range): BP systolic 100–115; BP diastolic 63–75; PULSE 98; O2SAT 94; BMI 29.9
--- NOTE | 2025-02-21 08:04 | W.PN.CARDCBS ---
Addendum entered and electronically signed by Alpesh Raymond MD 02/21/25 11:09:
I saw and examined the patient.
The Elementary Art Teacher's note was reviewed and I agree with the note.
Comment:
GEN: No distress, awake, Ox3
HEENT: supple, anicteric, mmm
LUNGS: CTA, no wheezes/rales
CV: Reg, S1/S2, 2/6 AHSM
ABD: soft, BS+, NT/ND
EXT: trace edema
NEURO: Gross non-focal
SKIN: No rash
PLan:
She remains on 3 L of oxygen. She is not stable for DYLAN for now. Will hold off on DYLAN/MitraClip evaluation until she is off oxygen and stable as outpatient.
Will continue to diurese with IV Lasix for another 24 to 48 hours. Attempt to wean oxygen. Extra 20 mg IV Lasix today.
Increase Toprol to 25 mg p.o. twice daily.
She is in sinus rhythm today but QTc is prolonged. Decrease amiodarone to 200 mg p.o. twice daily. Repeat EKG in AM.
Continue to follow on telemetry.
Will increase midodrine to support blood pressure.
Discussed at length with patient and brother.
Addendum entered and electronically signed by Chantell Najera PA-C 02/21/25 10:23:
EKG with prolonged QTC. will decrease amiodarone dose to 200mg BID and repeat EKG in AM to reassess QTc.
Original Note:
Today's Communication / Plan
-
DYLAN canceled�will plan to consider for outpatient MitraClip evaluation if continues to improve
Continue IV diuresis. Will give additional 20 mg IV this afternoon
wean supplemental oxygen
check EKG
Increase Toprol to 25 mg twice daily
Increase midodrine to 10 mg 3 times daily
Impression / Plan
-
.
Monomer Purification Operator: Previously seen by Dr. New Landeros, [place] medical office assistant
Impression:
Presented 02/11/2025 with dyspnea, left shoulder pain, altered mental status
Bilateral pneumonia with clinical sepsis with bacteremia Streptococcus agalactiae 1/
Non-[place] related myocardial injury related to sepsis, peak troponin 0.733 on admission
Acute HF with preserved LVEF - proBNP 19,000
Atrial fibrillation with rapid ventricular response
Hepatitis with hyperbilirubinemia
Probable MELITA
Toxic metabolic encephalopathy
Respiratory failure on BiPAP
Atrial tachycardia
Severe mitral regurgitation
Moderate aortic regurgitation
Atypical chest pain possible pericarditis
Echo 02/11/2025: Mild LVH, hyperdynamic function, EF 70-75% or greater, dynamic LVOT gradient suggested but not demonstrated inclusively, MAC, severe MR, dilated left atrium, aortic sclerosis with moderate aortic regurgitation, dilated and
hypokinetic RV, pulmonary artery systolic pressure 52 mmHg with moderate MR and dilated right atrium
Plan:
- Patient continues to slowly improve
- Antibiotics and steroids per primary service for pneumonia with clinical sepsis
- Continue diuresis with IV Lasix. proBNP on 02/18 was improving compared to admission. Weight continues to trend down if accurate. AM labs pending. Was not on diuretic prior to admission
- Remains on 3 L nasal cannula, continue to wean as able
- Will give additional 20 mg IV Lasix this afternoon
- Given severe MR by echo this admission, patient being considered for MitraClip evaluation. Do not feel as though she is ready for DYLAN at this time, we will arrange outpatient follow-up for next week and can discuss timing of DYLAN as outpatient
pending progress
- Was noted to have paroxysmal atrial fibrillation during this admission. Check EKG this morning. Continue amiodarone 200 mg 3 times daily. Will increase Toprol to 25 mg twice daily and increase midodrine to 10 mg 3 times daily.
- continue eliquis 5mg BID
- Would attempt to wean midodrine as outpatient as able as she continues to recover
-She had atypical chest pain and possible pericarditis by initial EKG. Troponin peaked at 0.7 and downtrending. For eventual outpatient ischemic evaluation, particularly if she opts to proceed with MitraClip evaluation. Continue colchicine 0.3mg
BID as also on amiodarone
- Continue PT/OT
- will arrange OP cardiac follow up
Progress Note - Monomer Purification Operator
Subjective
Date of Service: February 21, 2025
denies SOB, CP, palpitations
Objective
Labs:
Labs
Hgb 9.9 g/dL (12.0-16.0) L 02/19/25 05:27
Hct 28.7 % (37.0-47.0) L 02/19/25 05:27
Plt Count 371 10^3/uL (130-400) 02/19/25 05:27
PT 15.1 Sec (11.4-14.6) H 02/11/25 18:03
INR 1.16 02/11/25 18:03
APTT 33.3 Sec (23.4-35.0) 02/11/25 18:03
Sodium 132 mmol/L (135-145) L 02/19/25 05:26
Potassium 3.7 mmol/L (3.5-5.1) 02/19/25 05:26
BUN 41 mg/dl (7-17) H 02/19/25 05:26
Creatinine 0.9 mg/dL (0.6-1.0) 02/19/25 05:26
Glucose 109 mg/dl (70-99) H 02/19/25 05:26
Troponins
02/18/25 02/18/25 02/18/25
09:54 15:52 22:42
Troponin I 0.095 H* 0.073 H* 0.061 H*
02/19/25
05:27
Troponin I 0.060 H*
Vital Signs and I&O:
Vital Signs
Temp Pulse Resp BP Pulse Ox
97.8 F 93 18 107/69 94
02/21/25 03:18 02/21/25 03:18 02/21/25 03:18 02/21/25 03:18 02/21/25 03:18
Vital Signs
Temp Pulse Resp BP Pulse Ox
97.8 F 93 18 107/69 94
02/21/25 03:18 02/21/25 03:18 02/21/25 03:18 02/21/25 03:18 02/21/25 03:18
Intake & Output
02/19/25 02/20/25 02/21/25 02/22/25
07:59 07:59 07:59 07:59
Intake Total 960 / 960 1140 / 1140 1080 / 1080
Output Total 300 / 300 150 / 150
Balance 960 / 960 840 / 840 930 / 930
Physical Exam
Physical Exam
GEN: No distress, awake, alert, oriented x3. On supplemental O2
HEENT: supple, anicteric, mmm, EOMI
LUNGS: CTA bilaterally, no wheezes/rales
CV: Irreg, S1/S2, 2/6 murmur
ABD: soft, BS+, NT/ND
EXT: No cyanosis, clubbing, edema
NEURO: Gross non-focal
SKIN: warm, pink, dry. No rash
[2025-02-21 08:33] LABS: Glucose - Point of Care 108 mg/dl (70-99)
[2025-02-21] MEDS: NOVOLOG FLEXPEN-LOW RESISTANCE SC ×3 (08:38→17:42)
[2025-02-21] MEDS: LASIX 40 MG IV (08:52)
[2025-02-21] MEDS: TOPROL XL 12.5 MG PO (08:52)
[2025-02-21] MEDS: PROTONIX 40 MG PO (08:53)
[2025-02-21] MEDS: MAG-TAB SR 84 MG PO ×2 (08:53→20:19)
[2025-02-21] MEDS: PACERONE 200 MG PO ×2 (08:53→20:19)
[2025-02-21] MEDS: VISBIOME 2 CAP PO (08:53)
[2025-02-21] MEDS: OMNICEF 300 MG PO ×2 (08:53→20:19)
[2025-02-21] MEDS: COLCHICINE 0.3 MG PO ×2 (08:53→20:19)
[2025-02-21] MEDS: ELIQUIS 5 MG PO ×2 (08:54→20:18)
[2025-02-21] MEDS: DESENEX/MITRAZOL/ZEASORB 1 APPLIC TOPICAL ×2 (08:54→20:21)
[2025-02-21] MEDS: LIDOCAINE 4% PATCH 1 PATCH TOPICAL (08:54)
--- NOTE | 2025-02-21 10:30 | WOUNDNOTE ---
SACRAL/COCCYX CREASE
--- NOTE | 2025-02-21 10:30 | WOUNDNOTE ---
[facility] RN note: Patient seen during pressure injury prevention rounds with medical manager Tamiko Houston and Nurse educator Zayra Woody. 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 Patient having frequent loose stools. C
diff negative as per RN Jennifer. Miconazole powder and Calazime being used and applied. Patient is on a [facility] air bed and has an air chair cushion. Patient can turn self in bed. Patient turned to L semi side lying position. Heels off bed
with pillow. PO intake 50-100% as per documentation review. Instructed patient pressure injury prevention measures and suggested she take the air chair cushion when discharged.
--- NOTE | 2025-02-21 10:56 | CM ---
CM following for discharge pending medical stability. Current medical plan is to start evaluation for Mitral valve clip procedure including DYLAN/cath in 24 48 hours permitting respiratory status.
Discharge Plan: [facility] when medically cleared.
[2025-02-21 11:36] LABS: Glucose - Point of Care 102 mg/dl (70-99)
[2025-02-21] MEDS: STERILE WATER FOR INJECTION IV (11:38)
[2025-02-21 13:40] LABS: Hematocrit 26.2 % (37.0-47.0); Hemoglobin 9.1 g/dL (12.0-16.0); Mean Corp Hgb Conc. 34.7 g/dL (33.0-37.0); Mean Corpuscular Volume 85.9 fL (81.0-99.0); Platelet Count 404 10^3/uL (130-400); Red Cell Dist. Width 16.2 % (11.5-14.5)
--- NOTE | 2025-02-21 13:57 | W.PN.HOSP.TC ---
Today's Communication/Plan
-
IV diuresis.
Support blood pressure with midodrine.
Reassess volume status with likely plan to transition to oral furosemide tomorrow.
Workup for severe MR as outpatient as patient home once respiratory and performance status optimized
Complete antibiotics per
Off corticosteroids
PT assessment with discharge planning to long term facility tentatively on 02/23
Assessment / Plan
Assessment / Plan
Impression
Acute hypoxic respiratory failure
Bilateral pneumonia.
Sepsis
Septic shock requiring vasopressors.
Gram-positive bacteremia
Acute CHF preserved EF
Acute kidney injury
Hypovolemic hyponatremia
Metabolic acidosis
Hyperbilirubinemia
Toxic metabolic encephalopathy secondary to acute illness
Non-[place] myocardial injury in the settings of hypotension and atrial tachycardia
Atrial fibrillation with RVR new onset
Elevated pro CHF BNP
Severe MR on echo 02/11
Pulmonary hypertension PAP 52 mmHg
Hyponatremia secondary to loop diuretics
Other conditions:
Essential hypertension
Dyslipidemia.
Known cardiac murmur.
Chronic back pain.
Distant tobacco history quit in
Plan:
Acute hypoxic respiratory failure
Bilateral right greater than left infiltrates suggestive pneumonia versus pulmonary edema
Suspected sepsis with pulmonary source
Shock septic versus cardiogenic with hypotension requiring vasopressors
Preliminary blood culture with Streptococcus agalactiae 1/2
Despite of aggressive treatment with antibiotics, IV diuresis respiratory status remains tenuous while patient on mid flow oxygen
Hemodynamics reasonably stabilized while off vasopressor transition to midodrine
Echocardiogram with preserved EF, although with concern for moderate to severe MR and at this point unexplained pulmonary hypertension (without evidence of significant pulmonary disease in the past)
She has migrating infiltrates that possibly consistent with pulmonary edema
Respiratory status improved and patient is currently down to 2 L of nasal cannula oxygen at rest
Plan is to continue empiric antibiotics/ceftriaxone, transition to Omnicef to complete 10 to 14 days of treatment
Of corticosteroids
Acute CHF preserved EF
Noted elevated cardiac markers including non-[place] troponin elevation elevated pro CHF BNP at 1900.
Echocardiogram 02/11 with hyperdynamic LVEF at 70-75% with no regional wall motion abnormalities. Noted for moderate MR with a large left atrium, dilated and hypokinetic RV with pulmonary hypertension PA pressure 52 mmHg and moderate TR.
CT scan negative for pulmonary embolism.
Lower extremity Doppler negative for DVT
Continue diuresis with IV Lasix for the next 24 hours
Continue midodrine
Atrial fibrillation with RVR, new onset
Initiated on amiodarone drip with transition to oral.
Continue amiodarone. Dose has been adjusted given increased QTc
Continue Toprol, dosed pending adjust
Initiated on Eliquis
Intermittent chest pain, sharp and reproducible
ECG with no evidence of ischemia
Troponin remains flat
Follow-up chest x-ray with no changes and showed bilateral opacification which slightly improved with likely differential of asymmetric pulmonary edema versus pneumonia
Toxic metabolic encephalopathy.
Neurologic exam with no focal findings
Mental status improves with improved oxygenation and hemodynamics.
Acute kidney injury.
Hypovolemic hyponatremia.
Metabolic acidosis.
Improved with IV fluids and vasopressors.
Nonoliguric.
Hypokalemia
Replete and trend
Hyperbilirubinemia with normal transaminases
Follow trend
Consider imaging if uptrending
Essential hypertension
Dyslipidemia.
Chronic lower back pain.
On tramadol and steroid taper as outpatient
If gram-positive bacteremia remains relevant with persistent back pain, consider imaging--> blood culture with Streptococcus agalactiae and after that all blood cultures since 02/13 negative so most likely a contaminant.
Time spent 52 minutes.
Anticipated Discharge: 24 - 48 hours
Subjective/Interval History
-
Date of Service: February 21, 2025
Objective Data
-
Labs:
Laboratory Results
02/21/25
13:27
WBC 33.0 H
Hgb 9.1 L
Hct 26.2 L
Plt Count 404 H
Sodium Pending
Potassium Pending
Chloride Pending
Carbon Dioxide Pending
BUN Pending
Creatinine Pending
Glucose Pending
Calcium Pending
Vital Signs:
Vital Signs
Temp Pulse Resp BP Pulse Ox
98.4 F 95 18 106/71 92
02/21/25 11:17 02/21/25 11:17 02/21/25 11:17 02/21/25 11:46 02/21/25 11:17
I&O
02/20/25 02/21/25 02/22/25
06:59 06:59 06:59
Intake Total 1140 / 1140 1080 / 1080
Output Total 300 / 300 150 / 150
Balance 840 / 840 930 / 930
Physical Exam
-
General: Well Developed and No Apparent Distress
HEENT: Normocephalic, Atraumatic and Moist Mucous Membranes
Respiratory: Rales
Cardiac: Regular Rhythm, S1/S2 and Murmur (Systolic); Negative Rub or Gallop
GI: Soft, Nontender, Nondistended and Normal Bowel Sounds; Negative Organomegaly
Rectal: Deferred by Provider
Musculoskeletal: No Clubbing, No Cyanosis and No Edema
Skin: Negative Rash
Neuro: Nonfocal/Grossly Intact
[2025-02-21 13:59] LABS: Nucleated Red Blood Cells % 0 %
[2025-02-21 14:11] LABS: Blood Urea Nitrogen 55 mg/dl (7-17); Calcium 7.7 mg/dl (8.4-10.2); Carbon Dioxide 27 mmol/L (22-30); Chloride 93 mmol/L (98-107); Estimated Creatinine Clearance 50 ml/min; Glucose 102 mg/dl (70-99); Potassium 3.6 mmol/L (3.5-5.1); Sodium 128 mmol/L (135-145); eGFR 56.60
[2025-02-21] MEDS: LASIX 20 MG IV (15:01)
[2025-02-21 17:41] LABS: Glucose - Point of Care 103 mg/dl (70-99)
[2025-02-21] MEDS: TOPROL XL 25 MG PO (20:18)
[2025-02-21] MEDS: LIPITOR 10 MG PO (20:18)
[2025-02-21] MEDS: MELATONIN 5 MG PO (20:19)
[2025-02-21] MEDS: TYLENOL 650 MG PO (20:36)
[2025-02-21 21:30] LABS: Glucose - Point of Care 115 mg/dl (70-99)
[2025-02-22] VITALS (8 sets, daily range): BP systolic 100–114; BP diastolic 59–70; PULSE 100; O2SAT 96; BMI 29.7
[2025-02-22 07:25] LABS: Glucose - Point of Care 125 mg/dl (70-99)
--- NOTE | 2025-02-22 07:49 | VATNOTE ---
Patient refused spandage covering for right midline catheter. Pt. stated 'its itchy'.
[2025-02-22] MEDS: NOVOLOG FLEXPEN-LOW RESISTANCE SC ×3 (07:53→17:56)
[2025-02-22] MEDS: LASIX 40 MG IV (08:08)
[2025-02-22] MEDS: OMNICEF 300 MG PO (08:12)
[2025-02-22] MEDS: PROTONIX 40 MG PO (08:12)
[2025-02-22] MEDS: VISBIOME 2 CAP PO (08:12)
[2025-02-22] MEDS: MAG-TAB SR 84 MG PO ×2 (08:12→20:59)
[2025-02-22] MEDS: TOPROL XL 25 MG PO ×2 (08:12→20:59)
[2025-02-22] MEDS: COLCHICINE 0.3 MG PO (08:12)
[2025-02-22] MEDS: LIDOCAINE 4% PATCH 1 PATCH TOPICAL (08:12)
[2025-02-22] MEDS: PACERONE 200 MG PO ×2 (08:13→20:59)
[2025-02-22] MEDS: ELIQUIS 5 MG PO ×2 (08:13→20:58)
[2025-02-22] MEDS: DESENEX/MITRAZOL/ZEASORB 1 APPLIC TOPICAL ×2 (08:13→20:56)
--- NOTE | 2025-02-22 09:46 | W.PN.CARDCBS ---
Addendum entered and electronically signed by Alpesh Raymond MD 02/22/25 12:25:
I saw and examined the patient.
[employer]'s note was reviewed and I agree with the note.
Comment:
GEN: No distress, awake, Ox3
HEENT: supple, anicteric, mmm
LUNGS: CTA, no wheezes/rales
CV: Reg, S1/S2, 1/6 syst LSB, no gallop
ABD: soft, BS+, NT/ND
EXT: No edema
NEURO: Gross non-focal
SKIN: No rash
Plan:
Feels about the same. Wean oxygen as tolerated.
Will switch over to po lasix.
QTc is prolonged. OK to continue Amio as she still has paroxysmal Afib. Repeat ECG in AM. back in sinus today.
Cont Midodrine/Toprol
Plan will be to discuss MitraClip options at followup
Would plan for possible D/C tomorrow.
Original Note:
Today's Communication / Plan
-
Wean supplemental oxygen
Transition to p.o. Lasix
Continue midodrine, wean as able
Follow QTc. Presently in sinus rhythm. continue amiodarone
OP cardiac follow up arranged. will discuss mitraclip eval more at visit
Impression / Plan
-
.
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 New Landeros, [place] emergency medical technician basic
Impression:
Presented 02/11/2025 with dyspnea, left shoulder pain, altered mental status
Bilateral pneumonia with clinical sepsis with bacteremia Streptococcus agalactiae 1/
Non-[place] related myocardial injury related to sepsis, peak troponin 0.733 on admission
Acute HF with preserved LVEF - proBNP 19,000
Atrial fibrillation with rapid ventricular response
Hepatitis with hyperbilirubinemia
Probable MELITA
Toxic metabolic encephalopathy
Respiratory failure on BiPAP
Atrial tachycardia
Severe mitral regurgitation
Moderate aortic regurgitation
Atypical chest pain possible pericarditis
Echo 02/11/2025: Mild LVH, hyperdynamic function, EF 70-75% or greater, dynamic LVOT gradient suggested but not demonstrated inclusively, MAC, severe MR, dilated left atrium, aortic sclerosis with moderate aortic regurgitation, dilated and
hypokinetic RV, pulmonary artery systolic pressure 52 mmHg with moderate MR and dilated right atrium
Plan:
- Was in A-fib from 5287-0851 AM. Presently in sinus rhythm with ectopy. Continue amiodarone 200 mg twice daily. QTc remains prolonged by EKG, however unclear of accuracy as in A-fib, follow by EKG while admitted
- Continue Toprol 25 mg twice daily and Eliquis 5 mg twice daily
- weight continues to trend down. Given bump in BUN and worsening hyponatremia, will transition to p.o. Lasix 40 mg daily. Was not on diuretic prior to admission
- Wean supplemental oxygen, presently on 3 L
- Continue antibiotics and steroids per primary service for pneumonia
- Plan to allow to recover from admission and will be seen in office first week in March to discuss moving forward with MitraClip evaluation
-Currently on midodrine 10 mg 3 times daily. Would attempt to wean midodrine as outpatient as able as she continues to recover
-She had atypical chest pain and possible pericarditis by initial EKG. Troponin peaked at 0.7 and downtrending. For eventual outpatient ischemic evaluation, particularly if she opts to proceed with MitraClip evaluation. Continue colchicine 0.3mg
BID as also on amiodarone
- Continue PT/OT
- Outpatient cardiac follow-up arranged. plan for SNF in AM
Progress Note - Watch Band Assembler
Subjective
Date of Service: February 22, 2025
Reports feels tired, but no SOB, CP.
Objective
Labs:
02/21/25 13:27
02/21/25 13:27
Labs
Hgb 9.1 g/dL (12.0-16.0) L 02/21/25 13:27
Hct 26.2 % (37.0-47.0) L 02/21/25 13:27
Plt Count 404 10^3/uL (130-400) H 02/21/25 13:27
PT 15.1 Sec (11.4-14.6) H 02/11/25 18:03
INR 1.16 02/11/25 18:03
APTT 33.3 Sec (23.4-35.0) 02/11/25 18:03
Sodium 128 mmol/L (135-145) L 02/21/25 13:27
Potassium 3.6 mmol/L (3.5-5.1) 02/21/25 13:27
BUN 55 mg/dl (7-17) H 02/21/25 13:27
Creatinine 1.0 mg/dL (0.6-1.0) 02/21/25 13:27
Glucose 102 mg/dl (70-99) H 02/21/25 13:27
Vital Signs and I&O:
Vital Signs
Temp Pulse Resp BP Pulse Ox
98.2 F 99 18 100/59 99
02/22/25 08:20 02/22/25 08:20 02/22/25 08:20 02/22/25 08:20 02/22/25 08:20
Vital Signs
Temp Pulse Resp BP Pulse Ox
98.2 F 99 18 100/59 99
02/22/25 08:20 02/22/25 08:20 02/22/25 08:20 02/22/25 08:20 02/22/25 08:20
Intake & Output
02/20/25 02/21/25 02/22/25 02/23/25
07:59 07:59 07:59 07:59
Intake Total 1140 / 1140 1080 / 1080 1200 / 1200
Output Total 300 / 300 150 / 150
Balance 840 / 840 930 / 930 1200 / 1200
Physical Exam
Physical Exam
GEN: No distress, awake, alert, oriented x3. On supplemental O2
HEENT: supple, anicteric, mmm, EOMI
LUNGS: CTA bilaterally, no wheezes/rales
CV: Reg, S1/S2, 2/6 murmur
ABD: soft, BS+, NT/ND
EXT: No cyanosis, clubbing, edema
NEURO: Gross non-focal
SKIN: warm, pink, dry. No rash
--- NOTE | 2025-02-22 10:59 | CM ---
Addendum entered by Chelsey Kurtz 02/22/25 12:49:
commissary manager received a call from Maya Najera at [facility] that they needed a referral sent, to fax [phone], referral faxed.
[facility]
Report [phone]

Addendum entered by Chelsey Kurtz 02/22/25 11:55:
Patient is for possible discharge tomorrow, message left for Maya Najera [phone], at [facility], to check on a bed for patient, call also placed to nursing [phone].
Original Note:
Chart reviewed and patient is currently requiring 3 liters of oxygen 99%, plan is for skilled placement at [facility] at [place], referral sent through [employer].
Plan; Skilled placement when stable.
[2025-02-22 11:34] LABS: Glucose - Point of Care 136 mg/dl (70-99)
[2025-02-22] MEDS: STERILE WATER FOR INJECTION IV (11:37)
[2025-02-22 11:48] LABS: Blood Urea Nitrogen 57 mg/dl (7-17); Calcium 7.9 mg/dl (8.4-10.2); Carbon Dioxide 29 mmol/L (22-30); Chloride 92 mmol/L (98-107); Estimated Creatinine Clearance 45 ml/min; Glucose 137 mg/dl (70-99); Potassium 3.6 mmol/L (3.5-5.1); Sodium 129 mmol/L (135-145); eGFR 50.48
--- NOTE | 2025-02-22 14:27 | W.PN.HOSP.TC ---
Today's Communication/Plan
-
Transition to oral Lasix.
Continue current rate control regimen
Continue anticoagulation
Supplemental oxygen.
Discharge planning to longterm facility tentatively on 02/23
Assessment / Plan
Assessment / Plan
Impression
Acute hypoxic respiratory failure
Bilateral pneumonia.
Sepsis
Septic shock requiring vasopressors.
Gram-positive bacteremia
Acute CHF preserved EF
Acute kidney injury
Hypovolemic hyponatremia
Metabolic acidosis
Hyperbilirubinemia
Toxic metabolic encephalopathy secondary to acute illness
Non-[place] myocardial injury in the settings of hypotension and atrial tachycardia
Atrial fibrillation with RVR new onset
Elevated pro CHF BNP
Severe MR on echo 02/11
Pulmonary hypertension PAP 52 mmHg
Hyponatremia secondary to loop diuretics
Other conditions:
Essential hypertension
Dyslipidemia.
Known cardiac murmur.
Chronic back pain.
Distant tobacco history quit in
Plan:
Acute hypoxic respiratory failure
Bilateral right greater than left infiltrates suggestive pneumonia versus pulmonary edema
Suspected sepsis with pulmonary source
Shock septic versus cardiogenic with hypotension requiring vasopressors
Preliminary blood culture with Streptococcus agalactiae /
Despite of aggressive treatment with antibiotics, IV diuresis respiratory status remains tenuous while patient on mid flow oxygen
Hemodynamics reasonably stabilized while off vasopressor transition to midodrine
Echocardiogram with preserved EF, although with concern for moderate to severe MR and at this point unexplained pulmonary hypertension (without evidence of significant pulmonary disease in the past)
She has migrating infiltrates that possibly consistent with pulmonary edema
Respiratory status improved and patient is currently down to 2 L of nasal cannula oxygen at rest
Plan is to continue empiric antibiotics/ceftriaxone, transition to Omnicef to complete 10 to 14 days of treatment. Completed on 02/22
Off corticosteroids
Acute CHF preserved EF
Noted elevated cardiac markers including non-[place] troponin elevation elevated pro CHF BNP at 1900.
Echocardiogram 02/11 with hyperdynamic LVEF at 70-75% with no regional wall motion abnormalities. Noted for moderate MR with a large left atrium, dilated and hypokinetic RV with pulmonary hypertension PA pressure 52 mmHg and moderate TR.
CT scan negative for pulmonary embolism.
Lower extremity Doppler negative for DVT
Continue diuresis with IV Lasix for the next 24 hours
Continue midodrine
Atrial fibrillation with RVR, new onset
Initiated on amiodarone drip with transition to oral.
Continue amiodarone. Dose has been adjusted given increased QTc
Continue Toprol, dosed pending adjust
Initiated on Eliquis
Intermittent chest pain, sharp and reproducible
ECG with no evidence of ischemia
Troponin remains flat
Follow-up chest x-ray with no changes and showed bilateral opacification which slightly improved with likely differential of asymmetric pulmonary edema versus pneumonia
Toxic metabolic encephalopathy.
Neurologic exam with no focal findings
Mental status improves with improved oxygenation and hemodynamics.
Acute kidney injury.
Hypovolemic hyponatremia.
Metabolic acidosis.
Improved with IV fluids and vasopressors.
Nonoliguric.
Hypokalemia
Replete and trend
Hyperbilirubinemia with normal transaminases
Follow trend
Consider imaging if uptrending
Essential hypertension
Dyslipidemia.
Chronic lower back pain.
On tramadol and steroid taper as outpatient
If gram-positive bacteremia remains relevant with persistent back pain, consider imaging--> blood culture with Streptococcus agalactiae and after that all blood cultures since 02/13 negative so most likely a contaminant.
Time spent 52 minutes.
Anticipated Discharge: Within 24 hours
Subjective/Interval History
-
Date of Service: February 22, 2025
Objective Data
-
Labs:
Laboratory Results
02/22/25
11:13
Sodium 129 L
Potassium 3.6
Chloride 92 L
Carbon Dioxide 29
BUN 57 H
Creatinine 1.1 H
Glucose 137 H
Calcium 7.9 L
Vital Signs:
Vital Signs
Temp Pulse Resp BP Pulse Ox
98.8 F 91 18 111/64 98
02/22/25 11:45 02/22/25 11:45 02/22/25 11:45 02/22/25 13:19 02/22/25 11:45
I&O
02/21/25 02/22/25 02/23/25
06:59 06:59 06:59
Intake Total 1080 / 1080 1200 / 1200
Output Total 150 / 150
Balance 930 / 930 1200 / 1200
Physical Exam
-
General: Well Developed and No Apparent Distress
HEENT: Normocephalic, Atraumatic and Moist Mucous Membranes
Respiratory: Rales
Cardiac: Regular Rhythm, S1/S2 and Murmur (Systolic); Negative Rub or Gallop
GI: Soft, Nontender, Nondistended and Normal Bowel Sounds; Negative Organomegaly
Rectal: Deferred by Provider
Musculoskeletal: No Clubbing, No Cyanosis and No Edema
Skin: Negative Rash
Neuro: Nonfocal/Grossly Intact
[2025-02-22 17:49] LABS: Glucose - Point of Care 130 mg/dl (70-99)
[2025-02-22] MEDS: LIPITOR 10 MG PO (20:58)
[2025-02-22] MEDS: TYLENOL 650 MG PO (20:59)
[2025-02-22] MEDS: MELATONIN 5 MG PO (20:59)
[2025-02-22 21:39] LABS: Glucose - Point of Care 109 mg/dl (70-99)
[2025-02-23 03:13] VITALS: BP 101/67
[2025-02-23 06:00] VITALS: BMI 28.0
[2025-02-23 07:10] VITALS: BP 84/60
[2025-02-23 07:30] LABS: Glucose - Point of Care 119 mg/dl (70-99)
[2025-02-23 07:51] LABS: Blood Urea Nitrogen 50 mg/dl (7-17); Calcium 7.6 mg/dl (8.4-10.2); Carbon Dioxide 27 mmol/L (22-30); Chloride 93 mmol/L (98-107); Estimated Creatinine Clearance 54 ml/min; Glucose 101 mg/dl (70-99); Potassium 3.3 mmol/L (3.5-5.1); Sodium 129 mmol/L (135-145); eGFR > 60.00
[2025-02-23 07:54] VITALS: BP 91/64
[2025-02-23] MEDS: NOVOLOG FLEXPEN-LOW RESISTANCE SC ×2 (09:23→12:41)
[2025-02-23] MEDS: ELIQUIS 5 MG PO (09:30)
[2025-02-23] MEDS: TOPROL XL 25 MG PO (09:30)
[2025-02-23] MEDS: PACERONE 200 MG PO (09:30)
[2025-02-23] MEDS: VISBIOME 2 CAP PO (09:30)
[2025-02-23] MEDS: LASIX 40 MG PO (09:30)
[2025-02-23] MEDS: MAG-TAB SR 84 MG PO (09:30)
[2025-02-23] MEDS: PROTONIX 40 MG PO (09:30)
[2025-02-23] MEDS: LIDOCAINE 4% PATCH 1 PATCH TOPICAL (09:31)
[2025-02-23] MEDS: DESENEX/MITRAZOL/ZEASORB 1 APPLIC TOPICAL (09:31)
[2025-02-23 11:00] VITALS: BP 107/63
--- NOTE | 2025-02-23 11:24 | W.DS.TRANS ---
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
-
Discharge Instructions:
Sleep Apnea Risk Low
Discharge Diagnosis/Procedures Acute CHF
Severe MR
Diet 2 Gram Sodium,Restrict fluids to 48 oz
Blood Work BMP in 1 week
Specialty Instructions Weigh Daily
Instructions: *DCA Heart Failure Instructions
Stand-Alone Forms:
Changes to Home Medications: Yes
Discharge Medications:
DC Medications w/original date entered in [employer]
acetaminophen 500 mg tablet 1,000 mg PO TID@0800,1300,1700 Pain 02/11/25
atorvastatin 10 mg tablet 10 mg PO QHS High Cholesterol 02/11/25
esomeprazole magnesium 40 mg capsule,delayed release 40 mg PO DAILY@0900 Gastrointestinal Issue 02/11/25
polyethylene glycol 3350 17 gram oral powder packet 17 g PO DAILY Constipation 02/11/25
Lactobac/Bifidobac [Visbiome] 2 cap PO DAILY #30 ea 02/23/25
amiodarone 200 mg tablet (Pacerone) 200 mg PO BID #30 tabs 02/23/25
apixaban 5 mg tablet (Eliquis) 5 mg PO BID #60 tabs 02/23/25
furosemide 40 mg tablet 40 mg PO DAILY #30 tabs 02/23/25
metoprolol succinate 25 mg tablet,extended release 24 hr 25 mg PO BID #60 tabs 02/23/25
midodrine 5 mg tablet 10 mg (2 x 5 mg) PO TID @ 0800,1200,1700 #90 tabs 02/23/25
Home Medication Changes
Amiodarone, Eliquis, Lasix initiated
Pending Results: No
--- NOTE | 2025-02-23 11:38 | CM ---
Addendum entered by Radha Sales 02/23/25 12:14:
Ambulance floor supervisor scheduled for 1500; left a voice mail for Maya @ facility # [phone]
BrotherRichardson, also notified with lemon picker time; IMM benefit explained to him; form dated/times @ 1219
Addendum entered by Radha Sales 02/23/25 11:48:
BrotherRichardson, notified of discharge plan via phone
Original Note:
Plan: Discharge to [facility] today via ambulance
Report [phone]
[2025-02-23 12:20] LABS: Glucose - Point of Care 114 mg/dl (70-99)
--- NOTE | 2025-02-23 12:37 | W.PN.CARDCBS ---
Addendum entered and electronically signed by Alpesh Raymond MD 02/23/25 13:14:
I saw and examined the patient.
The Folding Machine Tender's note was reviewed and I agree with the note.
Comment:
GEN: No distress, awake, Ox3
HEENT: supple, anicteric, mmm
LUNGS: scatt rhonchi
CV: Reg, S1/S2, 1/6 syst LSB, no murmur
ABD: soft, BS+, NT/ND
EXT: No edema
NEURO: Gross non-focal
SKIN: No rash
Plan:
OK for D/C
Cont Toprol 25mg po bid, Eliquis 5mg po bid
Cont Amio 200mg po bid ffor 2 weeks, then 200mg daily
cont Lasix 40mg daily
Will discuss MitraClip at office visit follow up
cont rehab/PT/oxygen wean
Original Note:
Today's Communication / Plan
-
po lasix 40mg daily
toprol 25mg BID
eliquis 5mg BID
midodrine 10mg TID
amiodarone 200mg BID for 2 weeks then decrease to 200mg daily
OP cardiac follow up arranged
for SNF
Impression / Plan
-
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 New Landeros, [place] medical office scheduler
Impression:
Presented 02/11/2025 with dyspnea, left shoulder pain, altered mental status
Bilateral pneumonia with clinical sepsis with bacteremia Streptococcus agalactiae 1/2
Non-[place] related myocardial injury related to sepsis, peak troponin 0.733 on admission
Acute HF with preserved LVEF - proBNP 19,000
Atrial fibrillation with rapid ventricular response
Hepatitis with hyperbilirubinemia
Probable MELITA
Toxic metabolic encephalopathy
Respiratory failure on BiPAP
Atrial tachycardia
Severe mitral regurgitation
Moderate aortic regurgitation
Atypical chest pain possible pericarditis
Echo 02/11/2025: Mild LVH, hyperdynamic function, EF 70-75% or greater, dynamic LVOT gradient suggested but not demonstrated inclusively, MAC, severe MR, dilated left atrium, aortic sclerosis with moderate aortic regurgitation, dilated and
hypokinetic RV, pulmonary artery systolic pressure 52 mmHg with moderate MR and dilated right atrium
Plan:
- In sinus rhythm at present. Continue amiodarone 200 mg twice daily for 2 weeks then decrease to 200 mg daily
- Continue Toprol 25 mg twice daily and Eliquis 5 mg twice daily
- Transitioned to p.o. Lasix 40 mg daily. Was not on diuretic prior to admission
- Replete potassium
- Continue to wean supplemental oxygen as able, presently on 2 L nasal cannula
- Continue treatment of pneumonia per primary service
- Plan to allow to recover from admission and will be seen in office first week in March to discuss moving forward with MitraClip evaluation
- Currently on midodrine 10 mg 3 times daily. Would attempt to wean midodrine as outpatient as able as she continues to recover
- She had atypical chest pain and possible pericarditis by initial EKG. Troponin peaked at 0.7 and downtrending. For eventual outpatient ischemic evaluation, particularly if she opts to proceed with MitraClip evaluation. Continue colchicine 0.3mg
BID as also on amiodarone
- Continue PT/OT
- Outpatient cardiac follow-up arranged. plan for SNF
- Discussed with patient and brother at bedside
Progress Note - Bioinformatics Scientist
Subjective
Date of Service: February 23, 2025
Reports breathing much better than admission
Objective
Labs:
02/21/25 13:27
02/23/25 06:44
Labs
Hgb 9.1 g/dL (12.0-16.0) L 02/21/25 13:27
Hct 26.2 % (37.0-47.0) L 02/21/25 13:27
Plt Count 404 10^3/uL (130-400) H 02/21/25 13:27
PT 15.1 Sec (11.4-14.6) H 02/11/25 18:03
INR 1.16 02/11/25 18:03
APTT 33.3 Sec (23.4-35.0) 02/11/25 18:03
Sodium 129 mmol/L (135-145) L 02/23/25 06:44
Potassium 3.3 mmol/L (3.5-5.1) L 02/23/25 06:44
BUN 50 mg/dl (7-17) H 02/23/25 06:44
Creatinine 0.9 mg/dL (0.6-1.0) 02/23/25 06:44
Glucose 101 mg/dl (70-99) H 02/23/25 06:44
Vital Signs and I&O:
Vital Signs
Temp Pulse Resp BP Pulse Ox
98.0 F 97 18 107/63 95
02/23/25 11:00 02/23/25 11:00 02/23/25 11:00 02/23/25 11:00 02/23/25 11:00
Vital Signs
Temp Pulse Resp BP Pulse Ox
98.0 F 97 18 107/63 95
02/23/25 11:00 02/23/25 11:00 02/23/25 11:00 02/23/25 11:00 02/23/25 11:00
Intake & Output
02/21/25 02/22/25 02/23/25 02/24/25
07:59 07:59 07:59 07:59
Intake Total 1080 / 1080 1200 / 1200 960 / 960
Output Total 150 / 150
Balance 930 / 930 1200 / 1200 960 / 960
Physical Exam
Physical Exam
GEN: No distress, awake, alert, oriented x3. On supplemental O2
HEENT: supple, anicteric, mmm, EOMI
LUNGS: CTA bilaterally, no wheezes/rales
CV: Reg, S1/S2, 2/6 murmur
ABD: soft, BS+, NT/ND
EXT: No cyanosis, clubbing, edema
NEURO: Gross non-focal
SKIN: warm, pink, dry. No rash
[2025-02-23] MEDS: KCL 20 MEQ PO (12:49)
--- NOTE | 2025-02-23 13:59 | VATNOTE ---
Right 4Fr SL Midline Catheter discontinued per unit request. Pt. for discharge today. TCL 13cm. Sterile dressing placed over site.
--- NOTE | 2025-02-23 14:02 | PTCARENOTE ---
Attempted to call report, no answer, left voicemail w/ call back number.
[2025-02-23 14:51] VITALS: BP 106/66
--- NOTE | 2025-02-27 10:43 | PN.CDI ---
CDI
- -
CDI:
Physician Documentation Request
Admit Date: 02/11/25 14:48
Dear Doctor Sakshi,
Patient admitted with acute hypoxic respiratory failure.
02/12- 02/22 PN's, 'Bilateral pneumonia....Sepsis....Septic shock requiring vasopressors...'
Discharge Summary, 'Initially, concern for infection process and bilateral pneumonia given her chest x-ray,showed asymmetric right greater than left infiltrate. Patient was placed on IV antibiotics and later corticosteroids. Patient had no response
to antibiotics as well as corticosteroids and eventually,they were weaned. Patient completed course of 14 days of antibiotics and steroids will be tapered to 0.'
After careful study, please update the status of the following three diagnoses:
____ - Sepsis/Septic shock/ Pneumonia were present on admission and now resolved.
____ - Sepsis/Septic shock/ Pneumonia were ruled out
____ - Other
Use of terms such as suspected, likely, concern for, or probable (associated with a specific diagnosis that is being evaluated, monitored, or treated as if it exists) are acceptable and can be coded in the inpatient setting, when documented at the
time of discharge.
Thank you,
Subha WARNER,RN,CCDS
CDI Specialist
Available via tiger text
Please use your independent medical judgment in providing your response.
== END 2025-02-23 15:53 | DRG 291 ==
LOC: 2 NORTH 14:48
PROVIDERS: Hospitalist; Internal Medicine; Internal Medicine Cardiovascular Disease; Nuclear Medicine Nuclear Cardiology; Nurse Practitioner Family; Nurse Practitioner Primary Care; Physician Assistant; Physician Assistant Medical; ADMITTING PHYSICIAN Internal Medicine; ATTENDING PHYSICIAN Internal Medicine; CONSULT PHYSICIAN Internal Medicine Cardiovascular Disease; CONSULT PHYSICIAN Internal Medicine Critical Care Medicine; EMERGENCY PHYSICIAN Emergency Medicine; FAMILY PHYSICIAN Internal Medicine
PROC: 5A09357 Assistance with Respiratory Ventilation, Less than 24 Consecutive Hours, Continuous Positive Airway Pressure (ICD-10-PCS; 2025-02-11)
DX: I11.0 Hypertensive heart disease with heart failure (principal); G92.8 Other toxic encephalopathy; I50.31 Acute diastolic (congestive) heart failure; J96.01 Acute respiratory failure with hypoxia; R57.0 Cardiogenic shock; N17.9 Acute kidney failure, unspecified; I47.19 Other supraventricular tachycardia; E87.1 Hypo-osmolality and hyponatremia; E87.20 Acidosis, unspecified; K52.1 Toxic gastroenteritis and colitis; I5A Non-ischemic myocardial injury (non-traumatic); E87.6 Hypokalemia; I34.0 Nonrheumatic mitral (valve) insufficiency; T50.2X5A Adverse effect of carbonic-anhydrase inhibitors, benzothiadiazides and other diuretics, initial encounter; I48.0 Paroxysmal atrial fibrillation; M54.30 Sciatica, unspecified side; Z66 Do not resuscitate; R74.01 Elevation of levels of liver transaminase levels; E78.00 Pure hypercholesterolemia, unspecified; K21.9 Gastro-esophageal reflux disease without esophagitis; G89.29 Other chronic pain; I27.20 Pulmonary hypertension, unspecified; Z87.891 Personal history of nicotine dependence; Z11.52 Encounter for screening for COVID-19
CPT/HCPCS: 36600; 71045; 71275; 76700; 80048; 80053; 80061; 82805; 82962; 83036; 83605; 83735; 83880; 84443; 84484; 85014; 85018; 85025; 85027; 85610; 85730; 86140; 87040; 87077; 87147; 87154; 87205; 87324; 87449; 87811; 93005; 93306; 93971; 94640; 94660; 96374; 97110; 97116; 97163; 97167; 97530; 97535; 99291; Q9967

== ENCOUNTER 2025-03-04 20:25 | Inpatient (IN) | payer MEDICARE, OTHER, SELFPAY ==
[2025-03-04] VITALS (13 sets, daily range): BP systolic 70–107; BP diastolic 47–76; BMI 29.5
[2025-03-04 21:01] LABS: Hematocrit 22.5 % (37.0-47.0); Hemoglobin 7.7 g/dL (12.0-16.0); Mean Corp Hgb Conc. 34.2 g/dL (33.0-37.0); Mean Corpuscular Volume 86.5 fL (81.0-99.0); Platelet Count 396 10^3/uL (130-400); Red Cell Dist. Width 16.9 % (11.5-14.5)
[2025-03-04] MEDS: LEVOPHED 250 IV (21:02)
[2025-03-04 21:10] LABS: APTT 44.6 Sec (23.4-35.0); INR 2.88; PT 30.1 Sec (11.4-14.6)
--- NOTE | 2025-03-04 21:13 | HPS.HSE ---
Family Physician
-
Family Physician: Iris Humphreys
Chief Complaint
-
Difficulty breathing.
History of Present Illness
This is a 79 woman transfered from [facility] to the ICU. She had gone to the ICU from her intermediate because it was discovered that she had a HG of 7.2 and likely a GI bleed. She had no recent history of black or bloody stools, no vomiting
of blood, but her rectal exam was guaiac positive in the ER. She was discharged from to the medical unit of her intermediate on 02/23/25. Here is a summary at the time of her discharge from on 02/23/25:
'Discharge diagnosis:
1. Acute hypoxic respiratory failure with acute pulmonary edema.
2. Suspect severe mitral regurgitation.
3. Atrial fibrillation is new onset initially with rapid ventricular response.
4. Toxic metabolic encephalopathy secondary to hypoxia.
5. Acute kidney injury with metabolic acidosis.
6. Hypokalemia diarrhea, loop diuretic induced.
7. Hyperbilirubinemia with normal transaminases, suspected due to liver congestion.
8. Essential hypertension.
9. Chronic back pain.'
BRIEF HOSPITAL COURSE:
'This is an 79-year-old female who presents to [facility] with acute toxic metabolic encephalopathy and acute hypoxic respiratory failure. Initially, concern for infection process and bilateral pneumonia given her
chest x-ray showed asymmetric right greater than left infiltrate. Patient was placed on IV antibiotics and later corticosteroids. Patient had no response to antibiotics as well as corticosteroids and eventually, they were weaned. Patient completed
course of 14 days of antibiotics and steroids will be tapered to 0.
Her further evaluation with echocardiogram, particularly on February 11, showed hyperdynamic LVEF with 70%-75% EF. Patient noted to have a moderate to severe MR, dilated and hypokinetic right ventricle with pulmonary hypertension with PA pressure of 52
mmHg. Her additional imaging with CT scan was negative for pulmonary embolism. Her lower extremity Doppler showed no evidence of DVT.
Patient was seen in consultation by Cardiology. In the meantime, she was also found to be in atrial fibrillation with rapid ventricular response, and she was initiated on amiodarone, transitioned to long-acting beta blockers with introduction of
anticoagulation with Eliquis. Patient likely has acute CHF, preserved EF and likely related to her moderate to severe MR. Overall, with the diuresis, her respiratory status improved, and she had been able to wean off high-flow oxygen to nasal
cannula oxygen supplementation between 2 and 3 L. Discussion of a workup for possible mitral valve clip had been contemplated, although decision made to discharge patient to retirement facility for further rehabilitation while on oral diuretics
and above-mentioned cardiovascular regimen with outpatient Cardiology followup for further testing including DYLAN and possibly DYLAN followed with cardiac catheterization in preparation for MitraClip procedure.'
At [facility] ER, she had SOB, required supplemental oxygen, and had the following notable findings:
tachipnea
+rectal guaiac
WBC 25.1
Hgb 7.2
Creatinine 2.3
Sodium 120
chest x-ray shows multifocal PNA
Elevated BNP
CT shows pericardia fluid
distended gallbladder
thickened colonic wall
At the time of my exam she was tachypnic and anxious, but not in pain. I reviewed code status with her and her , she is DNR, as she was at her last admit here.
Medical History
Past Medical History
Past Medical History: Reports Other
Additional Past Medical History:
recent Acute hypoxic respiratory failure with acute pulmonary edema.
Suspect severe mitral regurgitation.
Atrial fibrillation with recent new onset initially with rapid
ventricular response.
Toxic metabolic encephalopathy secondary to hypoxia.
Acute kidney injury with metabolic acidosis.
Hypokalemia diarrhea, loop diuretic induced.
Hyperbilirubinemia with normal transaminases, suspected due to
liver congestion.
Essential hypertension.
Chronic back pain.
Atrial Tachycardia
Hyperlipidemia
GERD
Tonsillectomy
Past Surgical History: Reports Other
Additional Past Surgical History:
See above
Social History
Unable to obtain full social history at this time due to: Acuity
Family History
Family History: Not pertinent
Allergies / Home Medications
Allergies reflects when Allergies were last updated in [facility].
Home Medications with original date entered in [facility]
Allergy/Medication List:
Allergies
Allergy/AdvReac Type Severity Reaction Status Date / Time
No Known Allergies Allergy Unverified 02/11/25 11:32
Home Medications
acetaminophen 500 mg tablet 1,000 mg PO TID@0800,1300,1700 Pain 02/11/25
atorvastatin 10 mg tablet 10 mg PO QHS High Cholesterol 02/11/25
esomeprazole magnesium 40 mg capsule,delayed release 40 mg PO DAILY@0900 Gastrointestinal Issue 02/11/25
polyethylene glycol 3350 17 gram oral powder packet 17 g PO DAILY Constipation 02/11/25
Lactobac/Bifidobac [Visbiome] 2 cap PO DAILY #30 ea 02/23/25
amiodarone 200 mg tablet (Pacerone) 200 mg PO BID #30 tabs 02/23/25
apixaban 5 mg tablet (Eliquis) 5 mg PO BID #60 tabs 02/23/25
furosemide 40 mg tablet 40 mg PO DAILY #30 tabs 02/23/25
metoprolol succinate 25 mg tablet,extended release 24 hr 25 mg PO BID #60 tabs 02/23/25
midodrine 5 mg tablet 10 mg (2 x 5 mg) PO TID @ 0800,1200,1700 #90 tabs 02/23/25
Review of Systems
-
Unable to obtain full review of systems at this time due to: Acuity
Physical Exam
Vital Signs
Vital Signs
Temp Pulse Resp BP Pulse Ox
96.7 F L 102 28 90/59 97
03/04/25 20:39 03/04/25 20:45 03/04/25 20:45 03/04/25 20:28 03/04/25 20:58
Physical Exam
General: Well Developed, Well Nourished, Respiratory Distress and Appears in Distress
HEENT: NormoCephalic, Nose Appears Normal and Ears Appear Normal
Respiratory: Rales, Rhonchi and Decreased Breath Sounds
Cardiac: S1/S2, Irregular Rhythm and Tachycardia
GI: Soft, Non Tender and Non Distended
Musculoskeletal: No Clubbing, No Cyanosis, Edema, Left Lower Extremity and Edema, Right Lower Extremity
Skin: Warm
Neuro: Awake and Alert
Psych: Anxious
Laboratory Results
-
03/04/25 20:51
Laboratory Results
PT 30.1 Sec (11.4-14.6) H 03/04/25 20:51
INR 2.88 03/04/25 20:51
APTT 44.6 Sec (23.4-35.0) H 03/04/25 20:51
Data Reviewed
-
Lab Data: Labs Reviewed by me
Impression/Plan
-
IMPRESSION:
79 woman, with sepsis, and several other life-threatening problems. High mortality risk, patient DNR. Serious issues known so far:
Sodium 120
H/H 7.7/22.5
WBC 25.7
INR 2.88
Sodium 122
K 5.2
BUN/Creat 101/2.1
Afib
1. Sepsis, likely from PNA, given recent admit, FISHER-PNA, with hypothermia
Circulatory support with pressors
Broad spectrum antibiotics
Discussion with director database/bridal sales consultant on best strategy for fluid support given overall edema
Start with albumin infusion as first step
2. Sodium of 120, likely from fluid overload.
Support kidneys as best as possible with pressors
repeat NA at midnight
Renal consult
3. Anemia, likely from UGIB, BUN 101
NPO
Protonix gtt
GI consult
4. Cardiac. Afib - likely from stress of illness, had been on amiodarone. Now also probably has some fluid around the heart.
Fluid management very difficult as described above
Start with BP support and albumin
Cardiology consult
Stat bedside echo
5. K of 5.2
Improve renal perfusion
recheck at midnight
Code status: DNR
VCD for DVTp
60 minutes of intensive care spent at this time.
[2025-03-04] MEDS: MORPHINE SULFATE 2 MG IV (21:15)
[2025-03-04 21:25] LABS: Troponin I 0.034 ng/ml
[2025-03-04 21:29] LABS: Albumin 2.8 g/dl (3.5-5.0); Blood Urea Nitrogen 101 mg/dl (7-17); Calcium 7.6 mg/dl (8.4-10.2); Carbon Dioxide 19 mmol/L (22-30); Chloride 91 mmol/L (98-107); Estimated Creatinine Clearance 24 ml/min; Glucose 100 mg/dl (70-99); Magnesium 2.1 mg/dl (1.6-2.3); Potassium 5.2 mmol/L (3.5-5.1); Sodium 122 mmol/L (135-145); eGFR 23.23
[2025-03-04] MEDS: FLEXBUMIN 100 IV (21:50)
--- NOTE | 2025-03-04 22:09 | PHA.VAN.IN ---
Assessment
- Assessment
Renal Function: SCR Appears Elevated from baseline
Minimum Temperature: 96.7
Concomitant Antimicrobials: Zosyn 2.25 gram IV q6h
Plan
- Plan
Initial / Loading Dose: Vancomycin 2000 mg IV x 1 dose
Maintenance Regimen: Dose by level regimen
Monitoring: Vancomycin random level for 8/4 AM labs
Pharmacokinetics Vancomycin I
- -
Patient Age: 79
Patient Sex: Female
Vancomycin Day #: 1
Indication: Pulmonary/Respiratory
Requesting Provider: Dr. Batres
Pertinent Antimicrobial Allergies:
NKDA
Height / Weight:
Height 5 ft 7 in
Actual Weight 85.3 kg
IBW in k.6 kg
Adjusted BW in k.1 kg
Pertinent Past Medical History: BMI: 29.5
- Vital Signs / Lab Results
Temp Pulse Resp BP Pulse Ox
96.7 F L 102 28 90/59 97
03/04/25 20:39 03/04/25 20:45 03/04/25 20:45 03/04/25 20:28 03/04/25 20:58
Lab Results - Hematology
03/04/25
20:51
WBC 25.7 H
Lab Results - Chemistry
03/04/25 03/04/25
20:51 20:52
BUN 101 H*
Creatinine 2.1 H
Estimated Creat Clear 24
Albumin 2.8 L Cancelled
[2025-03-04 22:38] LABS: B.E. -5.6 mmol/L; HCO3 17.7 mmol/L (21-28); O2 Saturation % 99.0 % (94-98); PCO2 26 mmHg (32-35); PO2 106 mmHg (83-108)
[2025-03-04 22:39] LABS: Urine Character Slightly Cloudy (Clear)
--- NOTE | 2025-03-04 22:39 | W.PN.SEPSIS ---
Sepsis
Vital Signs
Temp Pulse Resp BP Pulse Ox
96.7 F L 102 28 90/59 97
03/04/25 20:39 03/04/25 20:45 03/04/25 20:45 03/04/25 20:28 03/04/25 20:58
Physical Exam
Physical Exam:
A focused exam was performed after fluid resuscitation.
Capillary Refill
Bilateral Upper Extremity:
Dillon Time: Less than 3 sec
Bilateral Lower Extremity:
Dillon Time: Less than 3 sec
Pulse Evaluation
Bilateral Radial:
Pulse Evaluation: Present
Bilateral Dorsalis Pedis:
Pulse Evaluation: Present
[2025-03-04 22:52] LABS: Urine Squamous Cell >30 /LPF (Few)
[2025-03-04 22:53] LABS: Urine Red Blood Cell 0-2 /HPF (0-2)
[2025-03-04] MEDS: ZOSYN 50 IV (22:53)
[2025-03-04] MEDS: LASIX 20 MG IV (22:53)
--- NOTE | 2025-03-04 22:56 | CON.CAR ---
Consultation
Consultation Request
Date/Time Consultation Requested: 03/04/2025, 1010
Date/Time Consultation Performed: 03/04/2025, 1040
Requesting Provider: Gisel
Performing Provider: Meghan
Reason for Consultation: SOB, AF
Medical History
-
Chief Complaint: SOB, fatigue, fever
History of Present Illness:
Patient is a pleasant 79-year-old female with a past medical history significant for severe MR, severe TR, paroxysmal atrial fibrillation, hypertension, hyperlipidemia, GERD, heart failure with preserved ejection fraction, CKD, hyperbilirubinemia
who was recently hospitalized at [facility] due to acute hypoxic respiratory failure with pulmonary edema in the setting of valvular heart disease, bacteremia and infection from pneumonia. Patient underwent treatment for infection and
diuresis and treated with amiodarone for atrial fibrillation as well as anticoagulation with Eliquis. Patient subsequently discharged to rehab with planned outpatient cardiovascular evaluation. Patient now presents to [place] ER due to fatigue,
shortness of breath, palpitations, chills. Patient noted to have a hemoglobin of 7.7, white count of 25.7, potassium of 5.2, BUN/creatinine 101/2.1. Additionally, patient had CT scan at [place] which demonstrated a multifocal pneumonia, elevated
BNP, and pericardial effusion. In discussion with patient, she is conversationally dyspneic with high flow nasal cannula in place. Notes palpitations, shortness of breath, chills no other complaints at this current juncture.
Past Medical History
Past Medical History: Other (See HPI)
Past Surgical History: Other (Tonsillectomy)
Social History
Tobacco: Non-Smoker
Alcohol: None
Drug: None
Living: With Family
Family History
Family History: Reviewed & Not Pertinent
Allergies / Home Medications
Allergy/AdvReac Type Severity Reaction Status Date / Time
No Known Allergies Allergy Unverified 02/11/25 11:32
�Medication �Instructions �Recorded �Confirmed �Type
acetaminophen 500 mg tablet 1,000 mg PO TID@0800,1300,1700 Pain 02/11/25 02/11/25 History
atorvastatin 10 mg tablet 10 mg PO QHS High Cholesterol 02/11/25 02/11/25 History
esomeprazole magnesium 40 mg 40 mg PO DAILY@0900 02/11/25 02/11/25 History
capsule,delayed release Gastrointestinal Issue
polyethylene glycol 3350 17 gram 17 g PO DAILY Constipation 02/11/25 02/11/25 History
oral powder packet
Lactobac/Bifidobac [Visbiome] 2 cap PO DAILY #30 ea 02/23/25 Rx
amiodarone 200 mg tablet (Pacerone) 200 mg PO BID #30 tabs 02/23/25 Rx
apixaban 5 mg tablet (Eliquis) 5 mg PO BID #60 tabs 02/23/25 Rx
furosemide 40 mg tablet 40 mg PO DAILY #30 tabs 02/23/25 Rx
metoprolol succinate 25 mg 25 mg PO BID #60 tabs 02/23/25 Rx
tablet,extended release 24 hr
midodrine 5 mg tablet 10 mg (2 x 5 mg) PO TID @ 02/23/25 Rx
0800,1200,1700 #90 tabs
Review of Systems
-
Unable to obtain full review of systems at this time due to: Acuity
History Source: Patient
Constitutional: Chills
Respiratory: Cough and Trouble Breathing
Cardiac: Palpitations
Abdomen/GI: No Symptoms
: No Symptoms
Musculoskeletal: No Symptoms
Skin: No Symptoms
Neurological: No Symptoms
Endocrine: No Symptoms
Hematologic/Lymphatic: No Symptoms
Physical Exam
Vital Signs
Temp Pulse Resp BP Pulse Ox
96.7 F L 108 28 104/58 97
03/04/25 20:39 03/04/25 22:53 03/04/25 20:45 03/04/25 22:53 03/04/25 20:58
Lab Results
Troponin I 0.034 ng/ml 03/04/25 20:52
Gad-E-Oavbdaehnay Pept 55255 pg/ml 03/04/25 20:52
Physical exam:
GENERAL: Conversational dyspnea, high flow nasal cannula in place, mild respiratory distress
EYE: sclera anicteric
NECK: Supple, no JVD, no carotid bruit appreciated
ENT: normal nose, moist mucosal membranes
CARDIAC: Irregularly irregular, tachycardic, +S1/S2, 3/6 harsh systolic murmur; no rubs, or gallops
CHEST/PULMONARY: Tachypneic, rhonchi, rales
ABDOMEN: Soft, without focal tenderness or distention
NEUROLOGICAL: Alert and oriented x3
SKIN: Warm and dry, no rash; 1+ bilateral lower extremity edema
PSYCH: Anxious
Impression / Plan
-
PCP: Unknown
Primary Sound Equipment Mechanic: Previously seen by Dr. New Landeros, [facility] medical record librarian; scheduled to see Dr. Karlos Raymond
Impression:
Pneumonia, possibly hospital-acquired
Acute hypoxic respiratory failure, multifactorial
� BNP 78881, evidence of volume overload on exam
Shock, multifactorial
� Likely related to anemia, infection
Acute anemia
Acute kidney injury
Pericardial effusion
� Moderate to large on CT scan report
� Moderate on echocardiogram 03/04/2025 without evidence of hemodynamic compromise
Acute on chronic heart failure with preserved ejection fraction
Atrial fibrillation, rapid ventricular response, symptomatic
� On anticoagulation with Eliquis
� On metoprolol, amiodarone
Valvular heart disease
� Severe MR, TR
Echo 02/11/2025: Mild LVH, hyperdynamic function, EF 70-75% or greater, dynamic LVOT gradient suggested but not demonstrated inclusively, MAC, severe MR, dilated left atrium, aortic sclerosis with moderate aortic regurgitation, dilated and
hypokinetic RV, pulmonary artery systolic pressure 52 mmHg with moderate MR and dilated right atrium
Echo 03/04/2025: EF 65 to 70%, normal RV size and function, severe MR, mild AI, severe TR PASP 55 to 60 mmHg, moderate pericardial effusion without hemodynamic compromise
Recommendations:
� Stat echocardiogram demonstrates moderate pericardial effusion with normal LVEF and no evidence of hemodynamic compromise. Discussed case with Dr. Richardson Esquivel who also reviewed images. No role for intervention at this current time. Monitor
overall clinical picture, if no improvement, repeat echocardiogram and reassessment of effusion for possible intervention.
� Supportive care with PRBCs in the setting of acute anemia presumed to be related to upper GI bleed and possibly related to pericardial effusion. Hold oral anticoagulation
� Rate control with amiodarone IV gtt.�patient having periodicity of rate controlled AF of 100-110 bpm however also experiencing periods of significant RVR with heart rate 140-150 bpm
� Vasopressor support, antibiotic therapy per primary service and critical care
� Diuresis when able
� Overall guarded prognosis
Discussed with nursing, family (brother Richardson over the phone), hospitalist, interventionalist
Data Reviewed
-
EKG: Tracing Personally Visualized and interpreted
Radiology: Report Reviewed by me
CT Scan: Report Reviewed by me
Medical Tests (Nuc Med, Echo etc): Image Personally Visualized and interpreted
Labs: Labs Reviewed by me
Old Records: Reviewed
[2025-03-04] MEDS: PROTONIX 100 IV (23:02)
[2025-03-04 23:10] LABS: Hematocrit 22.0 % (37.0-47.0); Hemoglobin 7.5 g/dL (12.0-16.0)
[2025-03-04] MEDS: VANCOCIN 540 MG IV (23:24)
[2025-03-04 23:27] LABS: Blood Urea Nitrogen 104 mg/dl (7-17); Calcium 7.8 mg/dl (8.4-10.2); Carbon Dioxide 16 mmol/L (22-30); Chloride 91 mmol/L (98-107); Glucose 109 mg/dl (70-99); Potassium 5.4 mmol/L (3.5-5.1); Sodium 121 mmol/L (135-145)
[2025-03-04 23:39] LABS: Estimated Creatinine Clearance 26 ml/min; eGFR 26.20
[2025-03-04] MEDS: SODIUM BICARBONATE 50 MEQ IV (23:49)
[2025-03-04 23:52] LABS: Glucose - Point of Care 131 mg/dl (70-99)
[2025-03-04] MEDS: CORDARONE 518 MG IV (23:59)
[2025-03-05] VITALS (35 sets, daily range): BP systolic 62–149; BP diastolic 23–99; BMI 30.2
--- NOTE | 2025-03-05 | PTCARENOTE ---
Received pt from flight nurses. Pt pulled over to our bed. Pt is AAOx3, flat/ withdrawn, forgetful, garbled speech. Afib on the monitor, EKG provided. BP 78/47 (52), levo gtt started. Received pt on highflow 55L 65%, O2 sat 97%, lungs
coarse/rhonchi, tachypneic, WOLF and at rest. Moprhine x1 given for SOB (see MAR). Figueroa placed for critical I&O. Albumin x1 given. Labs provided. 20mg IV lasix given. Echo provided, Cards at bedside, pt HR tachy 140s-150s, Amio gtt ordered (see
MAR). Per ICU IMAGING AIDE start vaso if levo gtt reachs 20 mcgs. CHG bath provided. Brother was at bedside. Call cooper in reach. Safe environment maintained.
[2025-03-05] MEDS: DILAUDID 0.5 MG IV ×3 (00:12→08:18)
--- NOTE | 2025-03-05 00:32 | PTCARENOTE ---
Received pt from flight nurses. Pt pulled over to our bed. Pt is AAOx3, flat/ withdrawn. Afib on the monitor, EKG provided. BP 78/47 (52), levo gtt started. Received pt on highflow 55L 65%, O2 sat 97%, lungs coarse/rhonchi, tachypneic, WOLF and at
rest. Moprhine x1 given for SOB (see MAR). Figueroa placed for critical I&O. Albumin x1 given. Labs provided. 20mg IV lasix given. Echo provided, Cards at bedside, pt HR tachy 140s-150s, Amio gtt ordered (see MAR). Per ICU DEPUTY COURT start vaso if levo gtt
reachs 20 mcgs. CHG bath provided. Brother was at bedside. Call cooper in reach. Safe environment maintained.
[2025-03-05] MEDS: ALPRAZOLAM ODT 0.25 MG PO (03:06)
[2025-03-05] MEDS: ZOSYN 50 IV (03:16)
--- NOTE | 2025-03-05 03:24 | PTCARENOTE ---
Systems reviewed. AM labs provided. Pt restless in bed, pt states she feels restless, ICU PASTRY DECORATOR notified, Alprazolam given (see MAR). Levo titrated per protocol. Temp of 101, ice packs applied to the pt, PRN Tylenol given (see MAR). Call cooper in reach.
Safe environment maintained.
[2025-03-05] MEDS: TYLENOL 650 MG PO (03:29)
[2025-03-05 03:30] LABS: Hematocrit 21.2 % (37.0-47.0); Hemoglobin 7.1 g/dL (12.0-16.0); Mean Corp Hgb Conc. 33.5 g/dL (33.0-37.0); Mean Corpuscular Volume 86.5 fL (81.0-99.0); Platelet Count 391 10^3/uL (130-400); Red Cell Dist. Width 17.2 % (11.5-14.5)
[2025-03-05 03:42] LABS: ALT (SGPT) 30 U/L (0-35); AST (SGOT) 63 U/L (14-36); Albumin 3.0 g/dl (3.5-5.0); Alkaline Phosphatase 121 U/L (38-126); Blood Urea Nitrogen 99 mg/dl (7-17); Calcium 7.3 mg/dl (8.4-10.2); Carbon Dioxide 18 mmol/L (22-30); Chloride 92 mmol/L (98-107); Glucose 154 mg/dl (70-99); Potassium 5.6 mmol/L (3.5-5.1); Sodium 123 mmol/L (135-145); Total Protein 5.6 g/dl (6.3-8.2)
[2025-03-05 03:52] LABS: Estimated Creatinine Clearance 25 ml/min; eGFR 24.64
[2025-03-05 04:05] LABS: Troponin I 0.174 ng/ml
[2025-03-05] MEDS: LEVOPHED 250 IV ×2 (04:32→07:53)
[2025-03-05] MEDS: SODIUM BICARBONATE 50 MEQ IV (05:22)
[2025-03-05] MEDS: CALCIUM GLUCONATE 130 MG IV (05:25)
--- NOTE | 2025-03-05 07:32 | PTCARENOTE ---
Addendum entered by Ovidio Peralta RN 03/05/25 07:52:
Pt. in resp distress.
Hypotensive --> Norepi increased --> Vasopressin started.
Brass Pourer notified and bedside.
Original Note:
Assumed care of pt. 0700.
SOB/Increased work of breathing currently on HFNC --> RT bedside.
On amio gtt now maint --> PIV site intact. Afib w. VRUNs/multifocal PVCs.
Norepi gtt at 16mcg --> MAP goals maintained via NIBP.
Anuric via taylor.
See assessment flowsheets for details.
[2025-03-05] MEDS: PITRESSIN 100 IV (07:53)
[2025-03-05] MEDS: PROTONIX 100 IV (07:53)
--- NOTE | 2025-03-05 08:16 | CON.GI ---
Consultation
-
Date/Time Consultation Requested: 03/04/2025, 10pm
Date/Time Consultation Performed: 03/05/2025, 8am
Requesting Provider: Dr. Batres
Performing Provider: Dr. Butcher
Reason for Consultation: UGIB
Medical History
Chief Complaint / HPI
Chief Complaint: SOB
History of Present Illness:
This is an 79-year-old female who was transferred from [place] emergency room to [place] ICU. [facility] to have a hemoglobin of 7.2 with elevated BUN to 104. She also was found to be short of breath and is
currently on a nonrebreather. She was also found to have a white count of 25, chest x-ray with multifocal pneumonia, elevated lactic acid, sodium 123, troponin leak, elevated BNP, creatinine 2.3, INR 2.88. She had a recent admission here and was
discharged on February 23 after having a acute hypoxic respiratory failure with pulmonary edema, atrial fibrillation new in onset, encephalopathy from hypoxia, acute kidney injury, diarrhea from diuretics.
Patient unable to give any history. I discussed with the nurse she had minimal black smear here. Her hemoglobin has remained stable in the sevens. At her last admission, her hemoglobin was 9.1. She has not required any blood. She does have
history of hyperbilirubinemia and her bilirubin remains elevated.
Past Medical History
Past Medical History: Other (severe MR, severe TR, paroxysmal atrial fibrillation, hypertension, hyperlipidemia, GERD, heart failure with preserved ejection fraction, CKD)
Past Surgical History: Tonsilectomy
Social History
Tobacco: Former Smoker
Family History
Family History: Unable to Obtain
Allergies / Home Medications
Allergy/AdvReac Type Severity Reaction Status Date / Time
No Known Allergies Allergy Unverified 02/11/25 11:32
�Medication �Instructions �Recorded
acetaminophen 500 mg tablet 1,000 mg PO TID@0800,1300,1700 Pain 02/11/25
atorvastatin 10 mg tablet 10 mg PO QHS High Cholesterol 02/11/25
esomeprazole magnesium 40 mg 40 mg PO DAILY@0900 02/11/25
capsule,delayed release Gastrointestinal Issue
polyethylene glycol 3350 17 gram 17 g PO DAILY Constipation 02/11/25
oral powder packet
Lactobac/Bifidobac [Visbiome] 2 cap PO DAILY #30 ea 02/23/25
amiodarone 200 mg tablet (Pacerone) 200 mg PO BID #30 tabs 02/23/25
apixaban 5 mg tablet (Eliquis) 5 mg PO BID #60 tabs 02/23/25
furosemide 40 mg tablet 40 mg PO DAILY #30 tabs 02/23/25
metoprolol succinate 25 mg 25 mg PO BID #60 tabs 02/23/25
tablet,extended release 24 hr
midodrine 5 mg tablet 10 mg (2 x 5 mg) PO TID @ 02/23/25
0800,1200,1700 #90 tabs
Review of Systems
-
Unable to obtain full review of systems at this time due to: Patient Non Verbal
Vital Signs
Temp Pulse Resp BP Pulse Ox
100.4 F H 82 27 88/63 95
03/05/25 07:48 03/05/25 07:00 03/05/25 07:00 03/05/25 07:00 03/05/25 07:51
Physical Exam
Exam
General: Other (tachypneic)
HEENT: Normocephalic
Respiratory: Rales and Rhonchi
Cardiac: Irregular Rhythm
GI: Non Tender and Non Distended
Genito-urinary: No Costovertebral Tender
Musculoskeletal: No Clubbing
Skin: Warm
Neuro: AO x 3
Hematologic/Lymphatic: No Lymphadenopathy
Psych: Calm
Results
WBC 26.8 10^3/uL (4.8-10.8) H 03/05/25 03:13
Hgb 7.1 g/dL (12.0-16.0) L 03/05/25 03:13
Hct 21.2 % (37.0-47.0) L 03/05/25 03:13
MCV 86.5 fL (81.0-99.0) 03/05/25 03:13
Plt Count 391 10^3/uL (130-400) 03/05/25 03:13
PT 30.1 Sec (11.4-14.6) H 03/04/25 20:51
INR 2.88 03/04/25 20:51
APTT 44.6 Sec (23.4-35.0) H 03/04/25 20:51
Sodium 123 mmol/L (135-145) L 03/05/25 03:13
Potassium 5.6 mmol/L (3.5-5.1) H 03/05/25 03:13
Chloride 92 mmol/L (98-107) L 03/05/25 03:13
Carbon Dioxide 18 mmol/L (22-30) L 03/05/25 03:13
BUN 99 mg/dl (7-17) H 03/05/25 03:13
Creatinine 2.0 mg/dL (0.6-1.0) H 03/05/25 03:13
Calcium 7.3 mg/dl (8.4-10.2) L 03/05/25 03:13
Total Bilirubin 2.3 mg/dl (0.2-1.3) H 03/05/25 03:13
AST 63 U/L (14-36) H 03/05/25 03:13
ALT 30 U/L (0-35) 03/05/25 03:13
Alkaline Phosphatase 121 U/L (38-126) 03/05/25 03:13
Diagnostic Image Results:
Prior GI Procedures:
EGD:
Colonoscopy:
Assessment / Plan
-
This is an 79-year-old female who is critically ill presenting with drop in Hb with elevated BUN, black smears, sepsis with PNA, hyponatremia, elevated INR, MELITA, A fib with Eliquis.
Pt was on Eliquis prior to admission - with 2g drop in Hb and dark stool and elevated BUN do suspect an UGIB but this seems to have stopped as her hemoglobin is stable. She is unstable with hypoNa and sepsis. Too high risk for endoscopy and again
bleeding seems to have stopped.
Recommend trend Hb and continue PPI.
Incidentally found to have elevated bilirubin, I do not see a direct bilirubin on file which I will order at this time. This may all be due to Gilbert's. Her AST and ALT and alkaline phosphatase are not remarkable.
-
-
Thank you for consultation and allowing me to participate in the patient's care. Please call the solar consultant GI physician during the after hours with any questions or concerns.
--- NOTE | 2025-03-05 08:21 | PTCARENOTE ---
Addendum entered by Ovidio Peralta RN 03/05/25 08:24:
Amio placed on hold per new client banking services clerk.
Original Note:
Lithopone Charger bedside --> Verbal to start phenylephrine. --> Brother to be notified to discuss GOC in light of pt. deterioration.
After conversation w. brother and new client banking services clerk focus will be on comfort, he is on his way in. Hold off on ABG, give x1 dilaudid.
Maintain current therapy until brother arrives.
--- NOTE | 2025-03-05 08:53 | PTCARENOTE ---
pt. asystole --> 0837. Hospitalist notified and bedside to pronounce.
Accountant Manager notified --> brother updated and is on the way in.
--- NOTE | 2025-03-05 08:53 | CON.INTV ---
Consultation
Consultation Request
Date/Time Consultation Requested: 03/05/2025
Date/Time Consultation Performed: 03/05/2025
Requesting Provider: Dr. Batres
Performing Provider: Dr. Ian Medina
Reason for Consultation: Septic shock
Medical History
-
History of Present Illness:
History primarily obtained from the chart and the patient. 79-year-old female with history of hypertension, hyperlipidemia, who has been dealing with back pain, sciatica. Recently discharged from [facility] for pneumonia and heart
failure, atrial fibrillation on anticoagulation. Completed full course of antibiotics and diuretics.
Patient presented to the emergency room [facility] with shortness of breath, palpitations and chills. Found to be severely anemic, reported black stools. Had leukocytosis, acute kidney injury. Chest x-ray demonstrated bilateral severe upper
lobe predominant infiltrates, increased proBNP, pericardial effusion on echocardiogram.
-
Critical care was consulted for further care, upon my arrival this morning patient was on multiple pressors, somnolent, unable to provide history, looked pale, had increased work of breathing.
Patient anuric, Figueroa in place.
On amiodarone drip significantly bradycardic as well.
Chest x-ray reviewed and demonstrated bilateral upper lobe predominant infiltrates, worse compared to prior.
.
PMH: Hyperlipidemia, GERD, history of atrial tachycardia, history of tonsillectomy.
Past Medical History
Past Medical History: None (See above)
Past Surgical History: None (See above)
Social History
Tobacco: Former Smoker (Quit )
Alcohol: None
Drug: None
Personal: Single
Living: Assisted Living (Living at assisted living for the past couple weeks)
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
Family History
Family History: Reviewed & Not Pertinent and Other
Allergies / Home Medications
Allergies
Allergy/AdvReac Type Severity Reaction Status Date / Time
No Known Allergies Allergy Unverified 02/11/25 11:32
Home Medications
�Medication �Instructions �Recorded �Confirmed �Last Taken �Type
acetaminophen 500 mg tablet 1,000 mg PO TID@0800,1300,1700 Pain 02/11/25 02/11/25 Unknown History
atorvastatin 10 mg tablet 10 mg PO QHS High Cholesterol 02/11/25 02/11/25 Unknown History
esomeprazole magnesium 40 mg 40 mg PO DAILY@0900 02/11/25 02/11/25 Unknown History
capsule,delayed release Gastrointestinal Issue
polyethylene glycol 3350 17 gram 17 g PO DAILY Constipation 02/11/25 02/11/25 Unknown History
oral powder packet
Lactobac/Bifidobac [Visbiome] 2 cap PO DAILY #30 ea 02/23/25 Unknown Rx
amiodarone 200 mg tablet (Pacerone) 200 mg PO BID #30 tabs 02/23/25 Unknown Rx
apixaban 5 mg tablet (Eliquis) 5 mg PO BID #60 tabs 02/23/25 Unknown Rx
furosemide 40 mg tablet 40 mg PO DAILY #30 tabs 02/23/25 Unknown Rx
metoprolol succinate 25 mg 25 mg PO BID #60 tabs 02/23/25 Unknown Rx
tablet,extended release 24 hr
midodrine 5 mg tablet 10 mg (2 x 5 mg) PO TID @ 02/23/25 Unknown Rx
0800,1200,1700 #90 tabs
Review of Systems
-
Unable to Obtain full review of systems at this time due to: Acuity
Vitals / Labs / Diagnostic Testing
Vital Signs
Temp Pulse Resp BP Pulse Ox
100.4 F H 82 27 88/63 90
03/05/25 07:48 03/05/25 07:00 03/05/25 07:00 03/05/25 07:00 03/05/25 08:25
Lab Data
03/05/25 03:13
Laboratory Results
03/04/25 03/04/25
20:51 22:31
PT 30.1 H
INR 2.88
APTT 44.6 H
pH 7.44
pCO2 26 L
pO2 106
HCO3 17.7 L
O2 Delivery Level
Diagnostic Testing:
Physical Exam
-
HEENT: Normocephalic
Cardiovascular: Regular Rhythm
Respiratory: Rales and Accessory Resp Muscle Use
GI: Soft and Non Distended
Neurology: Other (Somnolent, unable to provide history.)
Skin: Other (Pale)
General: Respiratory Distress (At rest)
Assessment
-
79-year-old female with history of hyperlipidemia, heart failure with preserved ejection fraction, valvulopathy, atrial fibrillation, chronic kidney disease, recently discharged from [facility] for pneumonia and heart failure. Readmitted
after presenting to [facility] for shortness of breath and abnormal chest x-ray. Found to be hypotensive requiring vasopressors, requiring high flow oxygen, acute kidney injury, febrile with leukocytosis transferred to the critical care unit
for further care.
Shock: Multiple mechanism septic/cardiogenic
Possible pneumonia
Acute on chronic heart failure with preserved ejection fraction
Rapid atrial fibrillation
Acute kidney injury-anuric
Toxic metabolic encephalopathy
Conditions present prior to admission
Hypercholesterolemia
History of atrial tachycardia
Prior known murmur
Distant tobacco history, quit
Assessment and plan:
Came to the bedside emergently to evaluate patient at the request from nursing-patient is critically ill.
On bedside evaluation appears pale, somnolent but arousable. Increased work of breathing, accessory muscle usage.
-
Hypotensive/shock-suspect cardiogenic/septic
On multiple pressors currently Levophed and vasopressin.
Status post IV fluid resuscitation-significantly hypoxemic on high flow oxygen.
Acute kidney injury-anuric. Unable to diurese due to hemodynamic instability.
It is noted that the patient is DNR.
-
Unfortunately with multiorgan failure, already relatively hypercapnic based on ABG this patient unlikely to survive Without mechanical ventilation
I personally discussed with power of family law attorney her brother over the phone. Extensive conversation regarding current clinical situation.
I did discuss with primary care as well.
We have decided to hold off on aggressive care including procedures, further pressors, laboratory testing and focus on comfort.
Dilaudid as needed has been ordered for increased work of breathing.
Will de-escalate care.
-
Critical care statement: A total of 45 minutes of critical care time was provided for this patient today. This includes management of unstable vital signs, evaluation of the patient at bedside, reviewing the patient's pertinent medical records
including ventilator settings, arterial blood gases, radiographs, microbiology, laboratory evaluations and discussion with primary team, critical care nursing, and respiratory therapy.
--- NOTE | 2025-03-05 10:25 | W.PN.DEATH ---
Pronouncement of
-
Called to see patient to pronounce.
No spontaneous heart tones or respirations noted.
Patient not responsive to verbal stimuli.
Patient is pronounced .
Time of : 08:37
Date of : 03/05/25
Cause of : Heart Failure
Family Notified: No
--- NOTE | 2025-03-05 10:29 | PTCARENOTE ---
GOL notified.
Belongings sent with brother.
Pt. TFX to jhon.
--- NOTE | 2025-03-05 10:54 | CM ---
Patient on this date 03/05/25 @ 0837.
== END 2025-03-05 08:37 | disposition expired | DRG 871 ==
LOC: ICU 20:25
PROVIDERS: Nurse Practitioner Family; ADMITTING PHYSICIAN Internal Medicine; ATTENDING PHYSICIAN Internal Medicine; CONSULT PHYSICIAN Internal Medicine Cardiovascular Disease; CONSULT PHYSICIAN Internal Medicine Gastroenterology; FAMILY PHYSICIAN Internal Medicine; OTHER PHYSICIAN Internal Medicine Critical Care Medicine
DX: A41.9 Sepsis, unspecified organism (principal); G92.8 Other toxic encephalopathy; J96.01 Acute respiratory failure with hypoxia; J18.9 Pneumonia, unspecified organism; I50.33 Acute on chronic diastolic (congestive) heart failure; R65.21 Severe sepsis with septic shock; E87.20 Acidosis, unspecified; N17.9 Acute kidney failure, unspecified; I13.0 Hypertensive heart and chronic kidney disease with heart failure and stage 1 through stage 4 chronic kidney disease, or unspecified chronic kidney disease; I47.19 Other supraventricular tachycardia; K92.2 Gastrointestinal hemorrhage, unspecified; I31.39 Other pericardial effusion (noninflammatory); E87.1 Hypo-osmolality and hyponatremia; Z51.5 Encounter for palliative care; E87.6 Hypokalemia; G89.29 Other chronic pain; M54.9 Dorsalgia, unspecified; K76.1 Chronic passive congestion of liver; N18.9 Chronic kidney disease, unspecified; K82.8 Other specified diseases of gallbladder; E78.00 Pure hypercholesterolemia, unspecified; K21.9 Gastro-esophageal reflux disease without esophagitis; D64.9 Anemia, unspecified; I48.0 Paroxysmal atrial fibrillation; R79.1 Abnormal coagulation profile; I27.20 Pulmonary hypertension, unspecified; I08.1 Rheumatic disorders of both mitral and tricuspid valves; R57.0 Cardiogenic shock; T50.1X5A Adverse effect of loop [high-ceiling] diuretics, initial encounter; Y92.129 Unspecified place in nursing home as the place of occurrence of the external cause; Z66 Do not resuscitate; Z79.01 Long term (current) use of anticoagulants; Z87.891 Personal history of nicotine dependence
CPT/HCPCS: 36600; 71045; 80048; 80053; 80202; 81003; 81015; 82040; 82248; 82805; 82962; 83605; 83735; 83880; 84100; 84484; 85014; 85018; 85027; 85610; 85652; 85730; 86850; 86900; 86901; 87040; 87070; 87077; 87086; 87186; 93005; 93306; P9047